=== PATIENT | female | born 1955 | race Caucasian/White ===

== ENCOUNTER 2017-08-06 16:59 | Emergency (ER) | payer MEDICAID ==
[~2017-08-06] VITALS: Ht 177.8 cm; Wt 60.0 kg
[2017-08-06 17:01] VITALS: BP 138/61; PULSE 110; RESP 15; TEMP 98.4; O2SAT 95
--- NOTE | 2017-08-06 17:31 | PD ---
HPI Chief Complaint: Edema Time Seen by Provider: 17:27 Travel History International Travel<30 days: No Contact w/Intl Traveler<30days: No Traveled to known affect area: No History of Present Illness HPI This is a 62-year-old female with history of anal cancer reports that she underwent chemotherapy and radiation in late 2015, moved to [facility] from [place] and December 2016, currently attempting to seek follow-up with a local oncologist. She presents for evaluation of leg swelling. Past when she has had swelling to the lower extremities bilaterally as well as pain. She reports some skin redness to the anterior right lower leg over the past few days. She was sent here by his [facility] for ultrasound to evaluate for DVT. She endorses pain, aching, lower extremities, constant, worse with movement. Denies acute chest pain or shortness of breath, nausea or vomiting, fevers or chills, abdominal pain. No other complaints. PFSH Past Medical History Cancer: Yes (rectal) Chemotherapy: Yes (AUG 2016) COPD: Yes Social History Alcohol Use: Yes (on occasion) Tobacco Use: Yes (0.5 ppd) Substance Use: No Allergies-Medications (Allergen,Severity, Reaction): Coded Allergies: No Known Allergies (Unverified , 08/06/17) Reported Meds & Prescriptions Reported Meds & Active Scripts Active Keflex (Cephalexin) 500 Mg Capsule 500 Mg PO Q6H 10 Days Bactrim DS (Sulfamethoxazole-Trimethoprim) 800-160 Mg Tab 1 Tab PO BID Reported Morphine ER (Morphine Sulfate) 15 Mg Tab 15 Mg PO BID Hydrocodone-Acetaminophen 7.5-325 mg Tab 1 Tab PO Q4H PRN Review of Systems Except as stated in HPI: all other systems reviewed are Neg Physical Exam Narrative GENERAL: Well-developed well-nourished female in no acute distress SKIN: Warm and dry. HEAD: Atraumatic. Normocephalic. EYES: Pupils equal and round. No scleral icterus. No injection or drainage. ENT: No nasal bleeding or discharge. Mucous membranes pink and moist. NECK: Trachea midline. No JVD. CARDIOVASCULAR: Regular rate and rhythm. No murmur appreciated. RESPIRATORY: No accessory muscle use. Clear to auscultation. Breath sounds equal bilaterally. GASTROINTESTINAL: Abdomen soft, non-tender, nondistended. Hepatic and splenic margins not palpable. MUSCULOSKELETAL: 2+ right lower extremity pitting edema. 1+ left lower extremity pitting edema. There is some erythematous changes localized to the right pretibial and ankle region. NEUROLOGICAL: Awake and alert. No obvious cranial nerve deficits. Motor grossly within normal limits. Normal speech. Data Data Last Documented VS Vital Signs Date Time Temp Pulse Resp B/P (MAP) Pulse Ox O2 Delivery O2 Flow Rate FiO2 08/06/17 17:19 103 18 98 Room Air 08/06/17 17:01 98.4 138/61 (86) Orders Orders Us Leg Venous Doppler Bilat (08/06/17 17:25) Complete Blood Count With Diff (08/06/17 17:25) Act Partial Throm Time (Ptt) (08/06/17 17:25) Prothrombin Time / Inr (Pt) (08/06/17 17:25) Iv Access Insert/Monitor (08/06/17 17:25) Comprehensive Metabolic Panel (08/06/17 17:25) Sulfamet-Trimeth Ds 800-160 Mg (Bactrim (08/06/17 18:45) Cephalexin (Keflex) (08/06/17 18:45) Acetamin-Hydrocod 325-5 Mg ([place] 5-325 (08/06/17 18:45) Labs Laboratory Tests Test 08/06/17 17:35 White Blood Count 4.8 TH/MM3 Red Blood Count 3.04 MIL/MM3 Hemoglobin 11.7 GM/DL Hematocrit 34.9 % Mean Corpuscular Volume 115.0 FL Mean Corpuscular Hemoglobin 38.6 PG Mean Corpuscular Hemoglobin Concent 33.6 % Red Cell Distribution Width 17.4 % Platelet Count 323 TH/MM3 Mean Platelet Volume 6.7 FL Neutrophils (%) (Auto) 68.8 % Lymphocytes (%) (Auto) 14.1 % Monocytes (%) (Auto) 10.3 % Eosinophils (%) (Auto) 6.0 % Basophils (%) (Auto) 0.8 % Neutrophils # (Auto) 3.3 TH/MM3 Lymphocytes # (Auto) 0.7 TH/MM3 Monocytes # (Auto) 0.5 TH/MM3 Eosinophils # (Auto) 0.3 TH/MM3 Basophils # (Auto) 0.0 TH/MM3 CBC Comment DIFF FINAL Differential Comment Prothrombin Time 11.2 SEC Prothromb Time International Ratio 1.0 RATIO Activated Partial Thromboplast Time 28.3 SEC Blood Urea Nitrogen 6 MG/DL Creatinine 0.48 MG/DL Random Glucose 103 MG/DL Total Protein 6.3 GM/DL Albumin 2.6 GM/DL Calcium Level 8.4 MG/DL Alkaline Phosphatase 86 U/L Aspartate Amino Transf (AST/SGOT) 17 U/L Alanine Aminotransferase (ALT/SGPT) 17 U/L Total Bilirubin 0.2 MG/DL Sodium Level 137 MEQ/L Potassium Level 4.3 MEQ/L Chloride Level 101 MEQ/L Carbon Dioxide Level 27.1 MEQ/L Anion Gap 9 MEQ/L Estimat Glomerular Filtration Rate 131 ML/MIN [facility] Medical Decision Making Medical Screen Exam Complete: Yes Emergency Medical Condition: Yes Medical Record Reviewed: Yes Interpretation(s) CONCLUSION: 1. Negative for deep venous thrombosis bilateral lower extremities. Left popliteal Ramos's cyst measuring up to 4 x 1.2 x 1.4 cm. Differential Diagnosis Cellulitis, DVT, Erysipelas, dependent edema Narrative Course Plan is for basic lab work, bilateral ultrasound lower extremities. Ultrasound of the lower extremities is negative for DVT but there is a left popliteal Ramos cyst. Lab work has been reviewed. Examination is consistent with cellulitis of the right pretibial region. The patient is afebrile, not toxic in appearance. The patient will be discharged with oral antibiotics and outpatient follow-up with her primary care physician. Diagnosis Primary Impression: Cellulitis of right lower extremity Additional Instructions: Take antibiotics as prescribed. Elevate the legs. Follow-up with primary care physician and return for any acutely new or worsening symptoms. Med/Other Pt SpecificInfo: Prescription(s) given Scripts Cephalexin (Keflex) 500 Mg Capsule 500 MG PO Q6H for Infection for 10 Days, #40 CAP 0 Refills Prov: Ron Burger MD 08/06/17 Sulfamethoxazole-Trimethoprim (Bactrim DS) 800-160 Mg Tab 1 TAB PO BID for Infection, #20 TAB 0 Refills Prov: Ron Burger MD 08/06/17 Disposition: 01 DISCHARGE HOME Condition: Stable Renzo Hawthorne Aug 06, 2017 17:31
[2017-08-06] MEDS ORDERED: HYDR-3580 PO (17:32)
[2017-08-06] MEDS ORDERED: MORP1TAB24 PO (17:32)
[2017-08-06 18:05] LABS: AUTOMATED NEUTROPHIL # 3.3 TH/MM3 (1.8-7.7); BASOPHIL % 0.8 % (0.0-2.0); EOSINOPHIL # 0.3 TH/MM3 (0-0.4); HEMATOCRIT 34.9 % (35.0-46.0); HEMO FLAGS DIFF FINAL; LYMPH % 14.1 % (9.0-44.0); LYMPHOCYTE # 0.7 TH/MM3 (1.0-4.8); MEAN CORPUSCULAR HEMOGLOBIN 38.6 PG (27.0-34.0); MEAN CORPUSCULAR HGB CONC 33.6 % (32.0-36.0); MONO % 10.3 % (0.0-8.0); NEUT % 68.8 % (16.0-70.0); PLATELET COUNT 323 TH/MM3 (150-450); RED BLOOD COUNT 3.04 MIL/MM3 (4.00-5.30); RED CELL DISTRIBUTION WIDTH 17.4 % (11.6-17.2); WHITE BLOOD COUNT 4.8 TH/MM3 (4.0-11.0)
[2017-08-06 18:17] LABS: APTT (PATIENT) 28.3 SEC (24.3-30.1); PROTHROMBIN TIME - PATIENT 11.2 SEC (9.8-11.6)
[2017-08-06 18:22] LABS: ANION GAP 9 MEQ/L (5-15); AST (GOT) 17 U/L (15-37); BICARBONATE 27.1 MEQ/L (21.0-32.0); BLOOD UREA NITROGEN 6 MG/DL (7-18); CHLORIDE 101 MEQ/L (98-107); GLOMERULAR FILTRATION RATE 131 ML/MIN (>89); POTASSIUM 4.3 MEQ/L (3.5-5.1); SODIUM (NA) 137 MEQ/L (136-145)
--- NOTE | 2017-08-06 18:22 | RADRPT ---
EXAM DATE/TIME: 08/06/2017 17:45 [facility] COMPARISON: No previous studies available for comparison. INDICATIONS : Bilateral leg swelling. MEDICAL HISTORY : Chronic obstructive pulmonary disease. Alcohol use. Tobacco use. Rectal cancer. Chemotherapy. SURGICAL HISTORY : None. ENCOUNTER: Initial ACUITY: 4 - 6 days PAIN SCORE: 10/10 LOCATION: Bilateral legs. TECHNIQUE: Venous ultrasound of the left and right leg was performed from the inguinal ligament to the proximal calf. Real-time, color Doppler and spectral tracing, compression and augmentation techniques were us ed. FINDINGS: RIGHT LEG: There is normal compressibility of the deep venous system from the proximal thigh to the proximal gio f. No echogenic clot is seen in the lumen of the common femoral, femoral, popliteal, and posterior t ibial veins. There is a normal response of the venous system to proximal and distal augmentation and respiration. LEFT LEG: There is normal compressibility of the deep venous system from the proximal thigh to the proximal gio f. No echogenic clot is seen in the lumen of the common femoral, femoral, popliteal, and posterior t ibial veins. There is a normal response of the venous system to proximal and distal augmentation and respiration. CONCLUSION: 1. Negative for deep venous thrombosis bilateral lower extremities. Left popliteal Ramos's cyst measu ring up to 4 x 1.2 x 1.4 cm. Theodore Durán MD on August 06, 2017 at 18:19 Board Certified Radiologist. This report was verified electronically.
[2017-08-06 18:24] LABS: ALT (GPT) 17 U/L (10-53)
[2017-08-06 18:25] LABS: ALKALINE PHOSPHATASE 86 U/L (45-117); TOTAL BILIRUBIN ADULT 0.2 MG/DL (0.2-1.0)
[2017-08-06] MEDS ORDERED: CEPH-460 PO (18:42)
[2017-08-06] MEDS ORDERED: BACT800T5 PO (18:42)
[2017-08-06] MEDS ORDERED: SULFAMETHOXAZOLE-TRIMETHOPRIM DS 800-160 MG TAB PO ONE (18:45)
[2017-08-06] MEDS ORDERED: CEPHALEXIN MONOHYDRATE 500 MG CAP PO ONE (18:45)
[2017-08-06] MEDS ORDERED: ACETAMINOPHEN/HYDROcodone 325 MG/5 MG TAB PO ONE (18:45)
== END 2017-08-06 19:00 | disposition home or self-care (01) ==
LOC: NEPC 16:59
DX: L03.115 Cellulitis of right lower limb (principal); M71.22 Synovial cyst of popliteal space [Baker], left knee; M79.89 Other specified soft tissue disorders; J44.9 Chronic obstructive pulmonary disease, unspecified; F17.200 Nicotine dependence, unspecified, uncomplicated; Z85.048 Personal history of other malignant neoplasm of rectum, rectosigmoid junction, and anus; Z79.899 Other long term (current) drug therapy
CPT/HCPCS: 80053; 85025; 85610; 85730; 93970; 99284

== ENCOUNTER 2017-10-05 02:27 | Emergency (ER) | payer MEDICAID ==
[~2017-10-05] VITALS: Ht 175.3 cm; Wt 55.0 kg
[~2017-10-05 02:27] MED LIST: BACT800T5 PO; CEPH-460 PO; HYDR-3580 PO; MORP1TAB24 PO
[2017-10-05 02:31] VITALS: BP 123/99; PULSE 90; RESP 18; TEMP 97.7; O2SAT 98
[2017-10-05] MEDS ORDERED: IPRAAER INH (02:40)
[2017-10-05] MEDS ORDERED: CETI10CA3 PO (02:40)
[2017-10-05] MEDS ORDERED: BUSP1TAB PO (02:40)
[2017-10-05] MEDS ORDERED: OMEP10CA PO (02:40)
[2017-10-05] MEDS ORDERED: MONT4CHW2 CHEW (02:40)
[2017-10-05] MEDS ORDERED: METH500T3 PO (02:40)
[2017-10-05 03:39] VITALS: O2SAT 99
[2017-10-05 03:45] LABS: AUTOMATED NEUTROPHIL # 3.3 TH/MM3 (1.8-7.7); BASOPHIL % 0.6 % (0.0-2.0); EOSINOPHIL # 0.1 TH/MM3 (0-0.4); EOSINOPHIL % 2.4 % (0.0-4.0); HEMATOCRIT 36.6 % (35.0-46.0); HEMO FLAGS DIFF FINAL; LYMPH % 21.3 % (9.0-44.0); LYMPHOCYTE # 1.1 TH/MM3 (1.0-4.8); MEAN CORPUSCULAR HEMOGLOBIN 38.5 PG (27.0-34.0); MEAN CORPUSCULAR HGB CONC 34.1 % (32.0-36.0); MONO % 12.3 % (0.0-8.0); NEUT % 63.4 % (16.0-70.0); PLATELET COUNT 306 TH/MM3 (150-450); RED BLOOD COUNT 3.23 MIL/MM3 (4.00-5.30); RED CELL DISTRIBUTION WIDTH 17.4 % (11.6-17.2); WHITE BLOOD COUNT 5.2 TH/MM3 (4.0-11.0)
--- NOTE | 2017-10-05 03:48 | PD ---
HPI Chief Complaint: Pain: Acute or Chronic Time Seen by Provider: 02:55 Travel History International Travel<30 days: No Contact w/Intl Traveler<30days: No Traveled to known affect area: No History of Present Illness HPI The patient is a 62 year old female who presents to the [facility] emergency department with a history of anal cancer, first diagnosed in August 2016 status post chemotherapy and radiation therapy. She reports that she has a history of anal pain and anal fissures with intermittent bleeding. She reports that she moved to the area in December 2016 and has been having difficulty following up with a new colorectal surgeon. She is followed by for oncology care. She reports that she recently had a PET scan done that was suspicious for a new rectal mass. She was referred to and had an appointment yesterday, however she was unable to find the office, that she missed the appointment. She is in pain management related to her rectal pain. The patient reports that she's been out of her morphine for the last 2 weeks as the pain management office was closed for . The patient reports that she has an appointment with a pain management doctor scheduled for today. She is followed by the [facility] for her primary care. She denies having any new abdominal pain. She reports that she has stool incontinence, however she has a history of this since having radiation therapy. She denies having any lightheaded sensation, dizziness, chest pain, chest pressure, or shortness of breath. On review of systems otherwise, she denies having any recent fevers , cough, congestion, neck pain, urinary symptoms, or neurologic symptoms. [facility] Past Medical History Narrative Medical The patient's past medical history is significant for anxiety disorder, anal cancer, irritable bowel syndrome, spinal stenosis with chronic back pain, COPD. Anxiety: Yes Cancer: Yes (rectal) Chemotherapy: Yes (received chemo and radiation last year ) COPD: Yes Gastrointestinal Disorders: Yes (IBS) Medical other: Yes (spinal stenosis , BREAST IMPLANTS 1985) Tetanus Vaccination: Unknown Influenza Vaccination: No ?: Not Past Surgical History Narrative Surgical The patient's past surgical history is significant for a tonsillectomy, hysterectomy. Hysterectomy: Yes Tonsillectomy: Yes Other Surgery: Yes (LAST COLONOSCOPY 2015) Social History Alcohol Use: Yes (on occasion) Tobacco Use: Yes (1-2 ppd) Substance Use: No Allergies-Medications (Allergen,Severity, Reaction): Coded Allergies: No Known Allergies (Unverified Adverse Reaction, Unknown, 10/05/17) Reported Meds & Prescriptions Reported Meds & Active Scripts Active Keflex (Cephalexin) 500 Mg Capsule 500 Mg PO Q6H 10 Days Bactrim DS (Sulfamethoxazole-Trimethoprim) 800-160 Mg Tab 1 Tab PO BID Reported Zyrtec (Cetirizine HCl) 10 Mg Capsule 10 Mg PO DAILY Methocarbamol 500 Mg Tab 500 Mg PO BID Combivent Respimat Inh (Ipratropium-Albuterol Inh) 20-100 Usp/Act Aero 1 Puff INH QID Singulair (Montelukast Sodium) 4 Mg Chew 4 Mg CHEW HS Omeprazole 10 Mg Cap 10 Mg PO DAILY Buspirone (Buspirone HCl) 7.5 Mg Tab 7.5 Mg PO BID Morphine ER (Morphine Sulfate) 15 Mg Tab 15 Mg PO BID Hydrocodone-Acetaminophen 7.5-325 mg Tab 1 Tab PO Q4H PRN Review of Systems Except as stated in HPI: all other systems reviewed are Neg General / Constitutional: No: Fever Eyes: No: Visual changes HENT: No: Headaches Cardiovascular: No: Chest Pain or Discomfort Respiratory: No: Shortness of Breath Gastrointestinal: Positive: Other (intermittent rectal bleeding from fissures associated with anal pain), No: Nausea, Vomiting, Diarrhea, Abdominal Pain Genitourinary: No: Dysuria Musculoskeletal: No: Pain Skin: No Rash Neurologic: No: Weakness, Focal Abnormalities, Change in Mentation, Slurred Speech, Sensory Disturbance Psychiatric: No: Depression Endocrine: No: Polydipsia Hematologic/Lymphatic: No: Easy Bruising Physical Exam Narrative General: The patient is a well-developed well-nourished female in no acute distress. Head and Neck exam: Head is normocephalic atraumatic. Eyes: Pupils are equal round and reactive to light. Nose: Midline septum with pink mucous membranes Mouth: Dentition unremarkable. Moist mucus membranes. Posterior oropharynx is not erythematous. No tonsillar hypertrophy. Uvula midline. Airway patent. Neck: No palpable lymphadenopathy. No nuchal rigidity. No thyromegaly. Cardiovascular: Regular rate and rhythm without murmurs, gallops, or rubs. Lungs: Clear to auscultation bilaterally. No wheezes, rhonchi, or rales. Abdomen: Soft, without tenderness to palpation in all 4 quadrants of the abdomen. No guarding, rebound, or rigidity. Normal bowel sounds are audible. No tenderness on palpation of McBurney's point. Extremities: No clubbing, cyanosis, or edema. 2+ pulses in all 4 extremities. No calf tenderness on palpation. Back: No costovertebral angle tenderness to palpation. Neurologic Exam: Grossly nonfocal. The patient has slightly slurred speech with an odor of alcohol about her. Skin Exam: No rash noted. Intact skin that is warm and dry. RECTAL EXAM: The patient has multiple anal skin tags, masses noted on examination of the anal area. The patient has an anal fissure noted without any active bleeding. On rectal examination, the patient has Hemoccult negative stool. Data Data Last Documented VS Vital Signs Date Time Temp Pulse Resp B/P (MAP) Pulse Ox O2 Delivery O2 Flow Rate FiO2 10/05/17 03:39 99 Room Air 10/05/17 02:31 97.7 90 18 123/99 (107) Orders Orders Electrocardiogram (10/05/17 03:02) Complete Blood Count With Diff (10/05/17 03:02) Comprehensive Metabolic Panel (10/05/17 03:02) Troponin I (10/05/17 03:02) Prothrombin Time / Inr (Pt) (10/05/17 03:02) Act Partial Throm Time (Ptt) (10/05/17 03:02) Lipase (10/05/17 03:02) Magnesium (Mg) (10/05/17 03:02) Chest, Single Ap (10/05/17 03:02) Iv Access Insert/Monitor (10/05/17 03:02) Ecg Monitoring (10/05/17 03:02) Oximetry (10/05/17 03:02) Drug Screen, Random Urine (10/05/17 03:02) Alcohol (Ethanol) (10/05/17 03:02) Sodium Chlor 0.9% 1000 Ml Inj (Ns 1000 M (10/05/17 04:00) Thiamine Inj (Thiamine Inj) (10/05/17 04:00) Acetamin-Hydrocod 325-5 Mg ([place] 5-325 (10/05/17 05:00) Labs Laboratory Tests Test 10/05/17 03:15 White Blood Count 5.2 TH/MM3 Red Blood Count 3.23 MIL/MM3 Hemoglobin 12.5 GM/DL Hematocrit 36.6 % Mean Corpuscular Volume 113.0 FL Mean Corpuscular Hemoglobin 38.5 PG Mean Corpuscular Hemoglobin Concent 34.1 % Red Cell Distribution Width 17.4 % Platelet Count 306 TH/MM3 Mean Platelet Volume 6.3 FL Neutrophils (%) (Auto) 63.4 % Lymphocytes (%) (Auto) 21.3 % Monocytes (%) (Auto) 12.3 % Eosinophils (%) (Auto) 2.4 % Basophils (%) (Auto) 0.6 % Neutrophils # (Auto) 3.3 TH/MM3 Lymphocytes # (Auto) 1.1 TH/MM3 Monocytes # (Auto) 0.6 TH/MM3 Eosinophils # (Auto) 0.1 TH/MM3 Basophils # (Auto) 0.0 TH/MM3 CBC Comment DIFF FINAL Differential Comment Prothrombin Time 9.8 SEC Prothromb Time International Ratio 1.0 RATIO Activated Partial Thromboplast Time 23.0 SEC Blood Urea Nitrogen 4 MG/DL Creatinine 0.46 MG/DL Random Glucose 67 MG/DL Total Protein 6.4 GM/DL Albumin 2.5 GM/DL Calcium Level 7.8 MG/DL Magnesium Level 1.6 MG/DL Alkaline Phosphatase 85 U/L Aspartate Amino Transf (AST/SGOT) 127 U/L Alanine Aminotransferase (ALT/SGPT) 61 U/L Total Bilirubin 0.1 MG/DL Sodium Level 142 MEQ/L Potassium Level 3.8 MEQ/L Chloride Level 108 MEQ/L Carbon Dioxide Level 26.7 MEQ/L Anion Gap 7 MEQ/L Estimat Glomerular Filtration Rate 138 ML/MIN Troponin I LESS THAN 0.02 NG/ML Lipase 60 U/L Ethyl Alcohol Level 280 MG/DL [facility] Medical Decision Making Medical Screen Exam Complete: Yes Emergency Medical Condition: Yes Medical Record Reviewed: Yes Differential Diagnosis Symptomatic anemia, versus exacerbation of chronic pain as she is out of her pain medication, versus progression of anal cancer Narrative Course During the course of the patients emergency department visit, the patients history, examination, and differential diagnosis were reviewed with the patient. The patient was placed on a front desk monitor with oximetry and frequent blood pressure monitoring. The patient had IV access obtained and blood work sent for analysis. The patient had an ECG done on arrival. The patient's ECG reveals a sinus rhythm heart rate of 84, nonspecific T-wave and ST abnormalities. No acute ST segment elevation. QRS duration is 90 ms, QTC 421 ms. The patient was initially provided Lortab 5 mg by mouth 1 for pain. The patients laboratory studies were reviewed and remarkable for a white count of 5.2, hemoglobin 12.5, platelets 306 with 12.3 monocytes, CMP is remarkable for chloride of 108, BUN 4, creatinine 0.46, glucose is 67, however on evaluation at the bedside it was noted to be 80. Total bilirubin is 0.1, AST 127, ALT 61, alkaline phosphatase 85, troponin I less than 0.02, lipase 60, alcohol level CCLXXX, PT 9.8, PTT 23 Radiology studies were reviewed and remarkable for a chest x-ray that shows no acute cardiopulmonary disease. The patient will be discharged home to follow-up with her pain management doctor for a refill of her panic pain medication later today. The patient additionally was instructed regarding the importance of following up with a colorectal surgeon as previously scheduled. The patient is resting comfortably and feels better, is alert and in no distress. The patients results and examination findings were discussed with the patient. The repeat examination is unremarkable and benign. The history, exam, diagnostic testing, and current condition do not suggest any significant pathology to warrant further testing, continued ED treatment, admission, or surgical evaluation at this point. The vital signs have been stable. The patient does not have uncontrollable pain, intractable vomiting, or other significant symptoms. The patient's condition is stable and appropriate for discharge. The patient will pursue further outpatient evaluation with a primary care physician or other designated or consulting physician as indicated in the discharge instructions. The patient expressed understanding and was agreeable with this plan. Diagnosis Primary Impression: Anal pain Referrals: Jamila Vasquez MD 1 week Julio Cesar Ibrahim MD 3 days [employer] [employer] 2 days Pain Management Patient Instructions: General Instructions, Rectal Pain (ED) Med/Other Pt SpecificInfo: No Change to Meds Disposition: 01 DISCHARGE HOME Condition: Stable Opal Marquez MD Oct 05, 2017 03:48
[2017-10-05 03:56] LABS: PROTHROMBIN TIME - PATIENT 9.8 SEC (9.8-11.6)
[2017-10-05] MEDS ORDERED: SODIUM CHLOR 0.9% 1000 ML INJ 1,000 ML IV SCH (04:00)
[2017-10-05] MEDS ORDERED: THIAMINE INJ 100 MG in SODIUM CHLORIDE 0.9% INJ 100 ML IV ONE (04:00)
[2017-10-05 04:03] LABS: ALT (GPT) 61 U/L (10-53); ANION GAP 7 MEQ/L (5-15); AST (GOT) 127 U/L (15-37); BICARBONATE 26.7 MEQ/L (21.0-32.0); BLOOD UREA NITROGEN 4 MG/DL (7-18); CHLORIDE 108 MEQ/L (98-107); GLOMERULAR FILTRATION RATE 138 ML/MIN (>89); MAGNESIUM 1.6 MG/DL (1.5-2.5); POTASSIUM 3.8 MEQ/L (3.5-5.1); SODIUM (NA) 142 MEQ/L (136-145)
[2017-10-05 04:07] LABS: ALKALINE PHOSPHATASE 85 U/L (45-117); TOTAL BILIRUBIN ADULT 0.1 MG/DL (0.2-1.0)
[2017-10-05 04:08] LABS: ALCOHOL 280 MG/DL (0-5)
--- NOTE | 2017-10-05 04:12 | RADRPT ---
EXAM DATE/TIME: 10/05/2017 03:38 [facility] COMPARISON: No previous studies available for comparison. INDICATIONS : Short of breath. MEDICAL HISTORY : None. SURGICAL HISTORY : None. ENCOUNTER: Initial ACUITY: 1 day PAIN SCORE: 0/10 LOCATION: Bilateral chest FINDINGS: A single view of the chest demonstrates the lungs to be symmetrically aerated without evidence of mas s, infiltrate or effusion. The cardiomediastinal contours are unremarkable. Osseous structures are intact. Partially calcified bilateral breast implants are present. There are overlying cardiac leads. CONCLUSION: No acute disease. Won Dewitt MD on October 05, 2017 at 4:09 Board Certified Radiologist. This report was verified electronically.
[2017-10-05] MEDS ORDERED: ACETAMINOPHEN/HYDROcodone 325 MG/5 MG TAB PO ONE (05:00)
--- NOTE | 2017-10-05 14:30 | EKG ---
Date Performed: 10/05/2017 Time Performed: 03:38:00 PTAGE: 62 years EKG: Sinus rhythm NONSPECIFIC ST & T-WAVE ABNORMALITY BORDERLINE ECG NO PREVIOUS TRACING DOCTOR: Kim Morton Interpretating Date/Time 10/05/2017 14:25:56
== END 2017-10-05 08:00 | disposition home or self-care (01) ==
LOC: NEPC 02:27
DX: K62.89 Other specified diseases of anus and rectum (principal); R94.31 Abnormal electrocardiogram [ECG] [EKG]; J44.9 Chronic obstructive pulmonary disease, unspecified; F41.9 Anxiety disorder, unspecified; F17.200 Nicotine dependence, unspecified, uncomplicated; Z85.048 Personal history of other malignant neoplasm of rectum, rectosigmoid junction, and anus; Z87.19 Personal history of other diseases of the digestive system; Z79.899 Other long term (current) drug therapy
CPT/HCPCS: 71010; 80053; 80307; 83690; 83735; 84484; 85025; 85610; 85730; 93005; 96365; 99285; J3411; J7030

== ENCOUNTER 2017-12-01 16:56 | Inpatient (IN) | payer MEDICAID ==
[~2017-12-01] VITALS: Ht 175.3 cm; Wt 59.6 kg
[~2017-12-01 16:56] MED LIST changes: +BUSP1TAB PO; +CETI10CA3 PO; +IPRAAER INH; +METH500T3 PO; +MONT4CHW2 CHEW; +OMEP10CA PO
[2017-12-01 16:58] VITALS: BP 108/58; PULSE 77; RESP 16; TEMP 98.3; O2SAT 96
[2017-12-01 17:41] LABS: AUTOMATED NEUTROPHIL # 4.5 TH/MM3 (1.8-7.7); BASOPHIL % 0.5 % (0.0-2.0); EOSINOPHIL # 0.1 TH/MM3 (0-0.4); EOSINOPHIL % 1.4 % (0.0-4.0); HEMOGLOBIN 11.9 GM/DL (11.6-15.3); LYMPH % 9.9 % (9.0-44.0); LYMPHOCYTE # 0.6 TH/MM3 (1.0-4.8); MEAN CORPUSCULAR HEMOGLOBIN 40.1 PG (27.0-34.0); MEAN PLATELET VOLUME 6.3 FL (7.0-11.0); MONO % 8.1 % (0.0-8.0); MONOCYTE # 0.5 TH/MM3 (0-0.9); NEUT % 80.1 % (16.0-70.0); PLATELET COUNT 421 TH/MM3 (150-450); RED BLOOD COUNT 2.97 MIL/MM3 (4.00-5.30); RED CELL DISTRIBUTION WIDTH 15.9 % (11.6-17.2); WHITE BLOOD COUNT 5.6 TH/MM3 (4.0-11.0)
[2017-12-01 17:51] LABS: INTERNATIONAL NORMALIZED RATIO 1.1 RATIO; PROTHROMBIN TIME - PATIENT 11.6 SEC (9.8-11.6)
[2017-12-01 18:11] LABS: ALBUMIN 2.2 GM/DL (3.4-5.0); AST (GOT) 21 U/L (15-37); BICARBONATE 28.6 MEQ/L (21.0-32.0); BLOOD UREA NITROGEN 3 MG/DL (7-18); CALCIUM 7.9 MG/DL (8.5-10.1); CHLORIDE 103 MEQ/L (98-107); CREATININE 0.46 MG/DL (0.50-1.00); GLOMERULAR FILTRATION RATE 138 ML/MIN (>89); GLUCOSE,RANDOM 79 MG/DL (74-106); SODIUM (NA) 137 MEQ/L (136-145)
[2017-12-01 18:12] LABS: ALT (GPT) 22 U/L (10-53)
[2017-12-01 18:14] LABS: ALKALINE PHOSPHATASE 76 U/L (45-117); TOTAL BILIRUBIN ADULT 0.3 MG/DL (0.2-1.0); TOTAL PROTEIN 5.9 GM/DL (6.4-8.2)
[2017-12-01] MEDS ORDERED: HYDR-3583 PO (18:48)
[2017-12-01] MEDS ORDERED: IPRA17I INH (18:48)
[2017-12-01] MEDS ORDERED: ALBUAER3 INH (18:48)
[2017-12-01 18:50] VITALS: BP 112/48; PULSE 84; RESP 18; TEMP 97.9; O2SAT 100
--- NOTE | 2017-12-01 19:07 | PD ---
HPI Chief Complaint: Medical Clearance Time Seen by Provider: 18:54 Travel History International Travel<30 days: No Contact w/Intl Traveler<30days: No Traveled to known affect area: No History of Present Illness HPI The patient is a 62-year-old female who presents to the emergency department for cellulitis of the left lower extremity. The patient states she has had cellulitis for the last week left lower extremity and has been treated on an outpatient basis by her colorectal surgeon, Dr. Gore. The patient is currently on Keflex 250 mg 4 times a day, however, the erythema has not improved. The patient was sent to the emergency department by her colorectal surgeon, Dr. Gore, for IV antibiotics. The patient does note a history of anal cancer, underwent radiation and chemotherapy, and is scheduled to undergo surgery in the near future by Dr. Gore with possible colostomy placement per the patient for continuing symptoms and fecal incontinence. She does note the left lower extremity is more swollen than the right lower extremity, denies any history DVT. She does note edema to the affected area with erythema and warmth. She denies current fever. Symptoms are moderate without any alleviating or exacerbating factors. The patient's primary physician is at the [facility]. PFSH Past Medical History Anxiety: Yes Cancer: Yes (rectal) Chemotherapy: Yes (received chemo and radiation last year ) COPD: Yes Gastrointestinal Disorders: Yes (IBS) Tetanus Vaccination: < 5 Years Influenza Vaccination: Yes Past Surgical History Hysterectomy: Yes Tonsillectomy: Yes Other Surgery: Yes (LAST COLONOSCOPY 2015) Social History Alcohol Use: Yes (on occasion) Tobacco Use: Yes (1-2 ppd) Substance Use: No Allergies-Medications (Allergen,Severity, Reaction): Coded Allergies: No Known Allergies (Unverified Adverse Reaction, Unknown, 12/01/17) Reported Meds & Prescriptions Reported Meds & Active Scripts Active Keflex (Cephalexin) 500 Mg Capsule 500 Mg PO Q6H 10 Days Bactrim DS (Sulfamethoxazole-Trimethoprim) 800-160 Mg Tab 1 Tab PO BID Reported Atrovent HFA 12.9 GM Inh (Ipratropium [place]) 17 Mcg/Actuation Aer 2 Puff INH Q6HR PRN Proair Hfa 8.5 GM Inh (Albuterol Sulfate) 90 Mcg/Act Aer 2 Puff INH Q4-6H PRN 108 mcg/actuation Hydrocodone-Acetaminophen 10-325 mg Tab 1 Tab PO Q4H PRN Zyrtec (Cetirizine HCl) 10 Mg Capsule 10 Mg PO DAILY Methocarbamol 500 Mg Tab 500 Mg PO BID Combivent Respimat Inh (Ipratropium-Albuterol Inh) 20-100 Snf/Act Aero 1 Puff INH QID Singulair (Montelukast Sodium) 4 Mg Chew 4 Mg CHEW HS Omeprazole 10 Mg Cap 10 Mg PO DAILY Buspirone (Buspirone HCl) 7.5 Mg Tab 7.5 Mg PO BID Morphine ER (Morphine Sulfate) 15 Mg Tab 15 Mg PO BID Hydrocodone-Acetaminophen 7.5-325 mg Tab 1 Tab PO Q4H PRN Review of Systems Except as stated in HPI: all other systems reviewed are Neg General / Constitutional: No: Fever Cardiovascular: No: Chest Pain or Discomfort Respiratory: No: Shortness of Breath Gastrointestinal: Positive: Other (history of anal cancer with fistulas, scheduled undergo surgery in the near future), No: Nausea, Vomiting Musculoskeletal: Positive: Edema, Pain Physical Exam Narrative GENERAL: Awake, alert, pleasant 52-year-old female who appears her stated age and is in no acute respiratory distress. SKIN: Focused skin assessment warm/dry. HEAD: Atraumatic. Normocephalic. EYES: Pupils equal and round. No scleral icterus. No injection or drainage. ENT: No nasal bleeding or discharge. Mucous membranes pink and moist. NECK: Trachea midline. No JVD. CARDIOVASCULAR: Regular rate and rhythm. No murmur appreciated. RESPIRATORY: No accessory muscle use. Clear to auscultation. Breath sounds equal bilaterally. GASTROINTESTINAL: Abdomen soft, non-tender, nondistended. Rectal: Exam was performed in the presence of female nurse. The patient does have some erythema in the perianal area with a few open areas that could possibly be fistulas. No drainage noted. MUSCULOSKELETAL: The left lower extremity is more swollen than the right lower extremity. There is erythema and warmth from the left foot up to the left knee with pitting edema and mild weeping. Positive calor. NEUROLOGICAL: Awake and alert. No obvious cranial nerve deficits. Motor grossly within normal limits. Normal speech. PSYCHIATRIC: Appropriate mood and affect; insight and judgment normal. Data Data Last Documented VS Vital Signs Date Time Temp Pulse Resp B/P (MAP) Pulse Ox O2 Delivery O2 Flow Rate FiO2 1/31/18 18:50 97.9 84 18 112/48 (69) 100 Room Air Orders Orders Complete Blood Count With Diff (12/01/17 17:09) Comprehensive Metabolic Panel (12/01/17 17:09) Prothrombin Time / Inr (Pt) (12/01/17 17:09) Act Partial Throm Time (Ptt) (12/01/17 17:09) Lactic Acid (12/01/17 19:01) Blood Culture (12/01/17 19:01) Clindamycin 600 Mg/Ns Premix (Cleocin 60 (12/01/17 19:15) Aquaphor Oint (Aquaphor Oint) (12/01/17 19:15) Morphine Inj (Morphine Inj) (12/01/17 19:15) Ondansetron Inj (Zofran Inj) (12/01/17 19:15) Sodium Chlor 0.9% 1000 Ml Inj (Ns 1000 M (12/01/17 19:15) Us Leg Venous Doppler (12/01/17 ) Potassium Chloride (Kcl) (12/01/17 21:15) Admit Order (Ed Use Only) (12/01/17 21:18) Labs Laboratory Tests Test 12/01/17 17:15 12/01/17 19:05 White Blood Count 5.6 TH/MM3 Red Blood Count 2.97 MIL/MM3 Hemoglobin 11.9 GM/DL Hematocrit 35.0 % Mean Corpuscular Volume 118.0 FL Mean Corpuscular Hemoglobin 40.1 PG Mean Corpuscular Hemoglobin Concent 34.0 % Red Cell Distribution Width 15.9 % Platelet Count 421 TH/MM3 Mean Platelet Volume 6.3 FL Neutrophils (%) (Auto) 80.1 % Lymphocytes (%) (Auto) 9.9 % Monocytes (%) (Auto) 8.1 % Eosinophils (%) (Auto) 1.4 % Basophils (%) (Auto) 0.5 % Neutrophils # (Auto) 4.5 TH/MM3 Lymphocytes # (Auto) 0.6 TH/MM3 Monocytes # (Auto) 0.5 TH/MM3 Eosinophils # (Auto) 0.1 TH/MM3 Basophils # (Auto) 0.0 TH/MM3 CBC Comment DIFF FINAL Differential Comment Prothrombin Time 11.6 SEC Prothromb Time International Ratio 1.1 RATIO Activated Partial Thromboplast Time 27.1 SEC Blood Urea Nitrogen 3 MG/DL Creatinine 0.46 MG/DL Random Glucose 79 MG/DL Total Protein 5.9 GM/DL Albumin 2.2 GM/DL Calcium Level 7.9 MG/DL Alkaline Phosphatase 76 U/L Aspartate Amino Transf (AST/SGOT) 21 U/L Alanine Aminotransferase (ALT/SGPT) 22 U/L Total Bilirubin 0.3 MG/DL Sodium Level 137 MEQ/L Potassium Level 3.2 MEQ/L Chloride Level 103 MEQ/L Carbon Dioxide Level 28.6 MEQ/L Anion Gap 5 MEQ/L Estimat Glomerular Filtration Rate 138 ML/MIN Lactic Acid Level 2.4 mmol/L [facility] Medical Decision Making Medical Screen Exam Complete: Yes Emergency Medical Condition: Yes Medical Record Reviewed: Yes Interpretation(s) Last Impressions Lower Extremity Ultrasound 12/01/17 0000 Signed Impressions: Service Date/Time: Friday, December 01, 2017 20:33 - CONCLUSION: 1. No evidence of deep venous thrombosis. 2. Left popliteal cyst measuring 4.7 x 2.4 x 1.2 cm. Reyes Hein MD Laboratory Tests Test 12/01/17 17:15 12/01/17 19:05 White Blood Count 5.6 TH/MM3 Red Blood Count 2.97 MIL/MM3 Hemoglobin 11.9 GM/DL Hematocrit 35.0 % Mean Corpuscular Volume 118.0 FL Mean Corpuscular Hemoglobin 40.1 PG Mean Corpuscular Hemoglobin Concent 34.0 % Red Cell Distribution Width 15.9 % Platelet Count 421 TH/MM3 Mean Platelet Volume 6.3 FL Neutrophils (%) (Auto) 80.1 % Lymphocytes (%) (Auto) 9.9 % Monocytes (%) (Auto) 8.1 % Eosinophils (%) (Auto) 1.4 % Basophils (%) (Auto) 0.5 % Neutrophils # (Auto) 4.5 TH/MM3 Lymphocytes # (Auto) 0.6 TH/MM3 Monocytes # (Auto) 0.5 TH/MM3 Eosinophils # (Auto) 0.1 TH/MM3 Basophils # (Auto) 0.0 TH/MM3 CBC Comment DIFF FINAL Differential Comment Prothrombin Time 11.6 SEC Prothromb Time International Ratio 1.1 RATIO Activated Partial Thromboplast Time 27.1 SEC Blood Urea Nitrogen 3 MG/DL Creatinine 0.46 MG/DL Random Glucose 79 MG/DL Total Protein 5.9 GM/DL Albumin 2.2 GM/DL Calcium Level 7.9 MG/DL Alkaline Phosphatase 76 U/L Aspartate Amino Transf (AST/SGOT) 21 U/L Alanine Aminotransferase (ALT/SGPT) 22 U/L Total Bilirubin 0.3 MG/DL Sodium Level 137 MEQ/L Potassium Level 3.2 MEQ/L Chloride Level 103 MEQ/L Carbon Dioxide Level 28.6 MEQ/L Anion Gap 5 MEQ/L Estimat Glomerular Filtration Rate 138 ML/MIN Lactic Acid Level 2.4 mmol/L Differential Diagnosis Differential diagnosis includes dependent edema, cellulitis on outpatient therapy, DVT, immunocompromise, hypoalbuminemia, hyponatremia, anal cancer. Narrative Course Labs were initially ordered in triage. Upon evaluation the patient does have a left lower extremity more swollen than the right lower extremity. Therefore, ultrasound left lower extremity was ordered to rule out DVT. The patient has been taking Keflex, possibly could have MRSA infection in the left lower extremity. The patient was administered clindamycin, morphine, Zofran, and IV fluids. Blood culture and lactic acid were sent to lab. I discussed the patient with Dr. Gore at 7:10 PM who states the patient has undergone radiation therapy and chemotherapy, is currently cancer free. She is scheduled undergo surgery with diverticula colostomy for continuing fecal incontinence and perineal swelling. He believes the patient may have decreased lymph drainage from the left lower extremity secondary to previous radiation therapy and chemotherapy. Lactic acid is not elevated at 2.4. White count is normal. Ultrasound reveals a popliteal cyst but no DVT. The patient be 23 hour observation for IV antibiotics until blood cultures have resulted. The on-call medical service was paged for observation. Physician Communication Physician Communication The on-call medical service was paged for admission. I discussed the patient with Dr. Whitehead who agrees with 23 hour observation. Diagnosis Primary Impression: Cellulitis of left lower extremity Additional Impressions: Lactic acidosis Hypokalemia Admitting Information Admitting Physician Requests: Observation Condition: Stable Bossman Stubbs MD Dec 01, 2017 19:07
[2017-12-01] MEDS ORDERED: ONDANSETRON HCL 4 MG/2 ML VIAL IV PUSH ONE (19:15)
[2017-12-01] MEDS ORDERED: MORPHINE SULFATE 4 MG/ML INJ IV PUSH ONE (19:15)
[2017-12-01] MEDS ORDERED: SODIUM CHLOR 0.9% 1000 ML INJ 1,000 ML IV ONE (19:15)
[2017-12-01] MEDS ORDERED: AQUAPHOR OINT 50 GM TUBE TOPICAL ONE (19:15)
[2017-12-01] MEDS ORDERED: CLINDAMYCIN 600 MG/NS PREMIX 50 ML IV ONE (19:15)
--- NOTE | 2017-12-01 20:59 | RADRPT ---
EXAM DATE/TIME: 12/01/2017 20:33 [facility] COMPARISON: No previous studies available for comparison. INDICATIONS : Left leg swelling. MEDICAL HISTORY : Chronic obstructive pulmonary disease. Carcinoma, rectal. IBS. Anxiety. Chemotherapy. Radiation t herapy. SURGICAL HISTORY : Hysterectomy. Tonsillectomy. Colonoscopy. ENCOUNTER: Initial ACUITY: 1 week PAIN SCORE: 3/10 LOCATION: Left leg. TECHNIQUE: Venous ultrasound of the leg was performed from the inguinal ligament to the proximal calf. Real-yariel e, color Doppler and spectral tracing, compression and augmentation techniques were used. FINDINGS: There is normal compressibility of the deep venous system from the inguinal region to the proximal ca lf. No echogenic clot is seen in the lumen of the common femoral, femoral, popliteal, and posterior tibial veins. There is a normal response of the venous system to proximal and distal augmentation an d respiration. Left popliteal cyst is noted and measures 4.7 x 2.4 x 1.2 cm. CONCLUSION: 1. No evidence of deep venous thrombosis. 2. Left popliteal cyst measuring 4.7 x 2.4 x 1.2 cm. Reyes Hein MD on December 01, 2017 at 20:55 Board Certified Radiologist. This report was verified electronically.
[2017-12-01] MEDS ORDERED: POTASSIUM CHLORIDE 20 MEQ CONTROLLED RELEASE TAB PO ONE ×2 (21:15→22:15)
[2017-12-01] MEDS ORDERED: BISACODYL 10 MG SUPP RECTAL PRN (22:00)
[2017-12-01] MEDS ORDERED: ONDANSETRON HCL 4 MG/2 ML VIAL IVP PRN (22:00)
[2017-12-01] MEDS ORDERED: LACTULOSE SYRUP 20 GM/30 ML CUP PO PRN (22:00)
[2017-12-01] MEDS ORDERED: MAGNESIUM HYDROXIDE SUSP 30 ML CUP PO PRN (22:00)
[2017-12-01] MEDS ORDERED: RESP: ALBUTEROL 2.5 MG/IPRATROPIUM 0.5 MG NEB (PRN) NEB ×2 (22:00→22:15)
[2017-12-01] MEDS ORDERED: ACETAMINOPHEN 325 MG TAB PO PRN (22:00)
--- NOTE | 2017-12-01 22:16 | HHI.HP ---
HPI Service [facility] Primary Care Physician Non-Staff Admission Diagnosis cellulitis left lower extremity, hypokalemia, lactic acidosis Diagnoses: Travel History International Travel<30 Days: No Contact w/Intl Traveler <30 Da: No Traveled to Known Affected Are: No History of Present Illness 62-year-old female with a past medical history significant for anal cancer, status post chemotherapy/radiation, COPD and IBS presents to the emergency department at the recommendation of Dr. Gore for a left lower extremity cellulitis that has failed outpatient treatment. The patient is status post treatment with Bactrim followed by Keflex. Despite this her left lower extremity remains swollen, erythematous and edematous. It is warm to the touch and painful. Patient denies any fever/chills. Denies any chest pain, shortness of breath, nausea/vomiting. Vital signs: Temperature 98.3, pulse 77, respirations 16, BP 108/58, pulse ox 96% on room air. Review of Systems Except as stated in HPI: all other systems reviewed are Neg Past Family Social History Past Medical History History of anal cancer, status post chemotherapy and radiation Fecal incontinence secondary to above COPD IBS Past Surgical History Hysterectomy Breast augmentation Reported Medications Reported Meds & Active Scripts Active Keflex (Cephalexin) 500 Mg Capsule 500 Mg PO Q6H 10 Days Bactrim DS (Sulfamethoxazole-Trimethoprim) 800-160 Mg Tab 1 Tab PO BID Reported Atrovent HFA 12.9 GM Inh (Ipratropium [place]) 17 Mcg/Actuation Aer 2 Puff INH Q6HR PRN Proair Hfa 8.5 GM Inh (Albuterol Sulfate) 90 Mcg/Act Aer 2 Puff INH Q4-6H PRN 108 mcg/actuation Hydrocodone-Acetaminophen 10-325 mg Tab 1 Tab PO Q4H PRN Zyrtec (Cetirizine HCl) 10 Mg Capsule 10 Mg PO DAILY Methocarbamol 500 Mg Tab 500 Mg PO BID Combivent Respimat Inh (Ipratropium-Albuterol Inh) 20-100 Alf/Act Aero 1 Puff INH QID Singulair (Montelukast Sodium) 4 Mg Chew 4 Mg CHEW HS Omeprazole 10 Mg Cap 10 Mg PO DAILY Buspirone (Buspirone HCl) 7.5 Mg Tab 7.5 Mg PO BID Morphine ER (Morphine Sulfate) 15 Mg Tab 15 Mg PO BID Hydrocodone-Acetaminophen 7.5-325 mg Tab 1 Tab PO Q4H PRN Allergies: Coded Allergies: No Known Allergies (Unverified Adverse Reaction, Unknown, 12/01/17) Family History Negative for CAD/DM. Social History Smokes approximately one pack of cigarettes weekly. Occasional alcohol. Denies marijuana, illicit drugs. Physical Exam Vital Signs Vital Signs Date Time Temp Pulse Resp B/P (MAP) Pulse Ox O2 Delivery O2 Flow Rate FiO2 12/01/17 18:50 97.9 84 18 112/48 (69) 100 Room Air 12/01/17 18:40 19 12/01/17 16:58 98.3 77 16 108/58 (75) 96 Room Air Physical Exam GENERAL: Cachectic female lying in bed SKIN: Left lower extremity with erythema and edema that extends from the dorsum of the foot to the knee. Warm to the touch. HEAD: Atraumatic. Normocephalic. No temporal or scalp tenderness. EYES: Pupils equal round and reactive. Extraocular motions intact. No scleral icterus. No injection or drainage. ENT: Nose without bleeding, purulent drainage or septal hematoma. Throat without erythema, tonsillar hypertrophy or exudate. Uvula midline. Airway patent. NECK: Trachea midline. No JVD or lymphadenopathy. Supple, nontender, no meningeal signs. CARDIOVASCULAR: Regular rate and rhythm without murmurs, gallops, or rubs. RESPIRATORY: Clear to auscultation. Breath sounds equal bilaterally. No wheezes , rales, or rhonchi. GASTROINTESTINAL: Abdomen soft, non-tender, nondistended. No hepato-splenomegaly , or palpable masses. No guarding. : Perianal and vulvar erythema with multiple areas of drainage. MUSCULOSKELETAL: Edema as above. NEUROLOGICAL: Awake and alert. Cranial nerves II through XII intact. Motor and sensory grossly within normal limits. Normal speech. Laboratory Laboratory Tests Test 12/01/17 17:15 12/01/17 19:05 White Blood Count 5.6 Red Blood Count 2.97 Hemoglobin 11.9 Hematocrit 35.0 Mean Corpuscular Volume 118.0 Mean Corpuscular Hemoglobin 40.1 Mean Corpuscular Hemoglobin Concent 34.0 Red Cell Distribution Width 15.9 Platelet Count 421 Mean Platelet Volume 6.3 Neutrophils (%) (Auto) 80.1 Lymphocytes (%) (Auto) 9.9 Monocytes (%) (Auto) 8.1 Eosinophils (%) (Auto) 1.4 Basophils (%) (Auto) 0.5 Neutrophils # (Auto) 4.5 Lymphocytes # (Auto) 0.6 Monocytes # (Auto) 0.5 Eosinophils # (Auto) 0.1 Basophils # (Auto) 0.0 CBC Comment DIFF FINAL Differential Comment Prothrombin Time 11.6 Prothromb Time International Ratio 1.1 Activated Partial Thromboplast Time 27.1 Blood Urea Nitrogen 3 Creatinine 0.46 Random Glucose 79 Total Protein 5.9 Albumin 2.2 Calcium Level 7.9 Alkaline Phosphatase 76 Aspartate Amino Transf (AST/SGOT) 21 Alanine Aminotransferase (ALT/SGPT) 22 Total Bilirubin 0.3 Sodium Level 137 Potassium Level 3.2 Chloride Level 103 Carbon Dioxide Level 28.6 Anion Gap 5 Estimat Glomerular Filtration Rate 138 Lactic Acid Level 2.4 Date/Time Source Procedure Growth Status 12/01/17 19:05 Blood Peripheral Aerobic Blood Culture Pending Received 12/01/17 19:05 Blood Peripheral Anaerobic Blood Culture Pending Received Result Diagram: 12/01/17 1715 12/01/17 1715 Caprini VTE Risk Assessment Caprini VTE Risk Assessment: Mod/High Risk (score >= 2) Caprini Risk Assessment Model Point Value = 1 Point Value = 2 Point Value = 3 Point Value = 5 Age 41-60 Minor surgery BMI > 25 kg/m2 Swollen legs Varicose veins or History of unexplained or recurrent spontaneous Oral contraceptives or hormone replacement Sepsis (< 1 month) Serious lung disease, including pneumonia (< 1 month) Abnormal pulmonary function Acute myocardial infarction Congestive heart failure (< 1 month) History of inflammatory bowel disease Medical patient at bed rest Age 61-74 Arthroscopic surgery Major open surgery (> 45 min) Laparoscopic surgery (> 45 min) Malignancy Confined to bed (> 72 hours) Immobilizing plaster cast Central venous access Age >= 75 History of VTE Family history of VTE Factor V Leiden Prothrombin [id number] Lupus anticoagulant Anticardiolipin antibodies Elevated serum homocysteine Heparin-induced thrombocytopenia Other congenital or acquired thrombophilia Stroke (< 1 month) Elective arthroplasty Hip, pelvis, or leg fracture Acute spinal cord injury (< 1 month) Prophylaxis Regimen Total Risk Factor Score Risk Level Prophylaxis Regimen 0-1 Low Early ambulation 2 Moderate Order ONE of the following: *Sequential Compression Device (SCD) *Heparin 5000 units SQ BID 3-4 Higher Order ONE of the following medications: *Heparin 5000 units SQ TID *Enoxaparin/Lovenox 40 mg SQ daily (WT < 150 kg, CrCl > 30 mL/min) *Enoxaparin/Lovenox 30 mg SQ daily (WT < 150 kg, CrCl > 10-29 mL/min) *Enoxaparin/Lovenox 30 mg SQ BID (WT < 150 kg, CrCl > 30 mL/min) AND/OR *Sequential Compression Device (SCD) 5 or more Highest Order ONE of the following medications: *Heparin 5000 units SQ TID (Preferred with Epidurals) *Enoxaparin/Lovenox 40 mg SQ daily (WT < 150 kg, CrCl > 30 mL/min) *Enoxaparin/Lovenox 30 mg SQ daily (WT < 150 kg, CrCl > 10-29 mL/min) *Enoxaparin/Lovenox 30 mg SQ BID (WT < 150 kg, CrCl > 30 mL/min) AND *Sequential Compression Device (SCD) Assessment and Plan Assessment and Plan Assessment/plan: 1. Cellulitis, failed outpatient therapy No leukocytosis, elevated lactic acid at 2.4 Repeat lactic acid pending IV clindamycin IV Morphine for breakthrough pain Blood cultures pending Anticipate transition to by mouth antibiotics in the next 24-48 hours if clinical improvement Monitor for signs of sepsis 2. Hypokalemia Status post by mouth repletion Follow-up BMP 3. COPD Duo nebs when necessary 4. History of anal cancer Patient scheduled for diverting colostomy with Dr. Gore on 12/20 Continue Oramorph for pain Aquaphor ointment Consult wound care FEN Regular diet Electrolytes: As above Heparin Physician Certification 2 Midnight Certification Type: Admission for Inpatient Services Order for Inpatient Services The services are ordered in accordance with Medicare regulations or non- Medicare payer requirements, as applicable. In the case of services not specified as inpatient-only, they are appropriately provided as inpatient services in accordance with the 2-midnight benchmark. Estimated LOS (days): 2 2 days is the estimated time the patient will need to remain in the hospital, assuming treatment plan goals are met and no additional complications. Post-Hospital Plan: Not yet determined Purnima Whitehead MD Dec 01, 2017 22:16
[2017-12-01] MEDS: HEPARIN SODIUM - SQ 10,000 UNITS/ML VIAL SQ SCH (22:31)
[2017-12-01] MEDS: SODIUM CHLOR 0.9% 1000 ML INJ 1,000 ML IV SCH (22:31)
[2017-12-01] MEDS: MORPHINE SULFATE 4 MG/ML INJ IV PUSH PRN (23:07)
[2017-12-02] VITALS: BP 99/49; PULSE 84; RESP 20; TEMP 97.8; O2SAT 98
[2017-12-02] MEDS: CLINDAMYCIN 600 MG/NS PREMIX 50 ML IV SCH ×4 (01:35→20:00)
[2017-12-02] MEDS: HEPARIN SODIUM - SQ 10,000 UNITS/ML VIAL SQ SCH ×3 (04:48→23:59)
[2017-12-02] MEDS: MORPHINE SULFATE 4 MG/ML INJ IV PUSH PRN (04:52)
[2017-12-02 06:05] LABS: AUTOMATED NEUTROPHIL # 4.2 TH/MM3 (1.8-7.7); BASOPHIL % 0.8 % (0.0-2.0); EOSINOPHIL # 0.1 TH/MM3 (0-0.4); EOSINOPHIL % 1.7 % (0.0-4.0); HEMATOCRIT 31.7 % (35.0-46.0); HEMOGLOBIN 10.7 GM/DL (11.6-15.3); LYMPH % 10.9 % (9.0-44.0); LYMPHOCYTE # 0.6 TH/MM3 (1.0-4.8); MEAN CELL VOLUME 118.7 FL (80.0-100.0); MEAN CORPUSCULAR HEMOGLOBIN 40.2 PG (27.0-34.0); MEAN CORPUSCULAR HGB CONC 33.9 % (32.0-36.0); MEAN PLATELET VOLUME 6.2 FL (7.0-11.0); MONO % 7.9 % (0.0-8.0); MONOCYTE # 0.4 TH/MM3 (0-0.9); NEUT % 78.7 % (16.0-70.0); PLATELET COUNT 366 TH/MM3 (150-450); RED BLOOD COUNT 2.67 MIL/MM3 (4.00-5.30); RED CELL DISTRIBUTION WIDTH 16.1 % (11.6-17.2); WHITE BLOOD COUNT 5.3 TH/MM3 (4.0-11.0)
[2017-12-02 06:26] LABS: BICARBONATE 27.1 MEQ/L (21.0-32.0); CALCIUM 7.7 MG/DL (8.5-10.1); CREATININE 0.52 MG/DL (0.50-1.00)
[2017-12-02 08:00] VITALS: BP 95/54; PULSE 76; RESP 17; TEMP 97.9; O2SAT 93
[2017-12-02] MEDS: PANTOPRAZOLE SOD 20 MG DELAYED RELEASE TAB PO SCH (08:57)
[2017-12-02] MEDS: CETIRIZINE HCL 10 MG TAB PO SCH (08:58)
[2017-12-02] MEDS: METHOCARBAMOL 500 MG TAB PO SCH ×2 (08:58→23:55)
[2017-12-02] MEDS: MORPHINE SULFATE 15 MG CONTROLLED RELEASE TAB PO SCH ×2 (08:58→23:57)
[2017-12-02] MEDS: SODIUM CHLORIDE 0.9% FLUSH 10 ML FLUSH IV FLUSH SCH ×2 (09:12→21:00)
[2017-12-02] MEDS: busPIRone HCL 5 MG TAB PO SCH ×2 (09:12→21:00)
[2017-12-02] MEDS: TIOTROPIUM BROMIDE 18 MCG INH INH SCH (09:13)
[2017-12-02] MEDS: ALBUTEROL SULFATE 90 MCG/ACT HFA 8 GM INHALER INH SCH ×3 (09:14→18:19)
[2017-12-02] MEDS: SODIUM CHLOR 0.9% 1000 ML INJ 1,000 ML IV SCH ×2 (09:15→18:20)
[2017-12-02 12:00] VITALS: BP 96/52; PULSE 70; RESP 16; TEMP 98; O2SAT 94
[2017-12-02] MEDS: MORPHINE SULFATE 2 MG/ML INJ IV PUSH PRN ×2 (12:55→14:18)
--- NOTE | 2017-12-02 14:39 | PD.WCN.NOT ---
Wound Consult Description: Consult for WOUND MANAGEMENT of rectum per Dr Whitehead Communicated with: Patient WALDEMAR Torres Recommendation: Continue with Aquaphor until ritters cream can be obtained. WALDEMAR Torres called Dr Russell office for "ritters cream" Additional Information: Patient seen on 7 for perirectum open wound with yellow tissue noted throughout wound bed noted @9 o'clock. Entire perirectal area is erythematous, edematous, red, shiny, and painful as stated by patient. There appears to be fissures noted @3 o'clock and 5 o'clock. There is no drainage noted at this time from the rectal areas. When attempting to apply stoma powder and skin prep to the area for encrusting, patient stated burning and the need to use the restroom. Patient was assisted to the bathroom and given Aquaphor as requested for pain to the rectal area. 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 WALDEMAR Torres notified of patient pain and encrusting with stoma powder and Cavilon no sting skin barrier film to the open area. Patient is noted in 2 briefs and ambulating. Briefs with remaining powder on them were removed and new clean briefs obtained for patient prior to leaving room. Roselyn Fonseca [facility]LBY HOSPITALChely Dec 02, 2017 14:39
--- NOTE | 2017-12-02 15:34 | HHI.PR ---
Subjective Remarks States that she is having impending surgery later in December. She states that her left lower leg redness seems similar. She denies any shortness of breath. Objective Vitals Vital Signs Date Time Temp Pulse Resp B/P (MAP) Pulse Ox O2 Delivery O2 Flow Rate FiO2 12/02/17 12:00 98.0 70 16 96/52 (67) 94 12/02/17 08:00 97.9 76 17 95/54 (68) 93 12/02/17 05:38 20 12/02/17 00:00 97.8 84 20 99/49 (66) 98 12/01/17 18:50 97.9 84 18 112/48 (69) 100 Room Air 12/01/17 18:40 19 12/01/17 16:58 98.3 77 16 108/58 (75) 96 Room Air I/O 12/01/17 12/01/17 12/01/17 12/02/17 12/02/17 12/02/17 07:00 15:00 23:00 07:00 15:00 23:00 Intake Total 360 ml Balance 360 ml Intake Oral 360 ml # Voids 3 # Bowel Movements 1 Result Diagram: 12/02/17 0420 12/02/17 0420 Other Results Last Impressions Lower Extremity Ultrasound 12/01/17 0000 Signed Impressions: Service Date/Time: Friday, December 01, 2017 20:33 - CONCLUSION: 1. No evidence of deep venous thrombosis. 2. Left popliteal cyst measuring 4.7 x 2.4 x 1.2 cm. Reyes Hein MD Imaging Last Impressions Lower Extremity Ultrasound 12/01/17 0000 Signed Impressions: Service Date/Time: Friday, December 01, 2017 20:33 - CONCLUSION: 1. No evidence of deep venous thrombosis. 2. Left popliteal cyst measuring 4.7 x 2.4 x 1.2 cm. Reyes Hein MD Objective Remarks GENERAL: This is a well-nourished, well-developed patient, in no apparent distress. CARDIOVASCULAR: Regular rate and rhythm RESPIRATORY: Clear to auscultation. Breath sounds equal bilaterally. No wheezes , rales, or rhonchi. GASTROINTESTINAL: Abdomen soft, non-tender, nondistended. Normal active bowel sounds MUSCULOSKELETAL: Left lower extremity with lower redness around the ankle and distal extremity with 1+ edema, no significant abscess. Multiple areas of macular papular lesions in the lower extremity NEURO: Alert & Oriented x4 to person, place, time, situation. Moves all ext x4 A/P Assessment and Plan 1. Cellulitis, failed outpatient therapy No leukocytosis, elevated lactic acid at 2.4 likely due to history of anal cancer and not true sepsis as patient does not meet the 2 sirs criteria Repeat lactic acid trending down IV clindamycin IV Morphine for breakthrough pain; continue home oral scheduled Oramorph Blood cultures pending Monitor for clinical improvement 2. Hypokalemia- supplemented Status post by mouth -replete Follow-up BMP 3. COPD- no signs of acute exacerbation Duo nebs when necessary 4. History of anal cancer Patient scheduled for diverting colostomy with Dr. Gore on 12/20 Continue Oramorph for pain Aquaphor ointment Consult wound care 5. FEN Regular diet Electrolytes: As above Heparin Discharge Planning Home pending clinical improvement cellulitis. Petrona Marcus MD Dec 02, 2017 15:34
[2017-12-02 16:00] VITALS: BP 92/54; PULSE 76; RESP 16; TEMP 96.6; O2SAT 95
[2017-12-02] MEDS: SILVER SULFADIAZINE/LIDOCAINE CREAM 60 GM JAR RECTAL PRN (18:19)
[2017-12-02 20:00] VITALS: BP 94/50; PULSE 70; RESP 16; TEMP 96.7; O2SAT 97
[2017-12-02] MEDS: MONTELUKAST SODIUM 4 MG CHEWABLE TAB CHEW SCH (23:55)
[2017-12-03] VITALS: BP 106/57; PULSE 80; RESP 16; TEMP 96.8; O2SAT 99
[2017-12-03] MEDS: ALBUTEROL SULFATE 90 MCG/ACT HFA 8 GM INHALER INH SCH ×5 (00:08→21:59)
[2017-12-03] MEDS: SILVER SULFADIAZINE/LIDOCAINE CREAM 60 GM JAR RECTAL PRN ×2 (00:12→08:16)
[2017-12-03] MEDS: MORPHINE SULFATE 2 MG/ML INJ IV PUSH PRN ×3 (02:26→11:49)
[2017-12-03] MEDS: SODIUM CHLORIDE 0.9% FLUSH 10 ML FLUSH IV FLUSH PRN ×2 (02:26→05:48)
[2017-12-03] MEDS: CLINDAMYCIN 600 MG/NS PREMIX 50 ML IV SCH ×4 (02:27→21:58)
[2017-12-03] MEDS: HEPARIN SODIUM - SQ 10,000 UNITS/ML VIAL SQ SCH ×3 (05:48→20:35)
[2017-12-03] MEDS: SODIUM CHLOR 0.9% 1000 ML INJ 1,000 ML IV SCH ×3 (05:52→16:31)
[2017-12-03 07:51] VITALS: BP 91/52; PULSE 72; RESP 16; TEMP 97.6; O2SAT 96
[2017-12-03] MEDS: PANTOPRAZOLE SOD 20 MG DELAYED RELEASE TAB PO SCH (08:34)
[2017-12-03] MEDS: METHOCARBAMOL 500 MG TAB PO SCH ×2 (08:34→20:35)
[2017-12-03] MEDS: CETIRIZINE HCL 10 MG TAB PO SCH (08:35)
[2017-12-03] MEDS: MORPHINE SULFATE 15 MG CONTROLLED RELEASE TAB PO SCH ×2 (08:35→20:35)
[2017-12-03] MEDS: SENNOSIDES 8.6 MG TAB PO PRN ×2 (08:40)
[2017-12-03] MEDS: TIOTROPIUM BROMIDE 18 MCG INH INH SCH (08:42)
[2017-12-03] MEDS: SODIUM CHLORIDE 0.9% FLUSH 10 ML FLUSH IV FLUSH SCH ×2 (08:43→11:50)
[2017-12-03] MEDS: busPIRone HCL 5 MG TAB PO SCH ×3 (09:00→21:59)
--- NOTE | 2017-12-03 11:13 | HHI.PR ---
Subjective Remarks Patient complained of anal pain and wants a prescription for her chronic pain medication until she can follow-up with Dr. Gore. She denies any fevers or chills. Objective Vitals Vital Signs Date Time Temp Pulse Resp B/P (MAP) Pulse Ox O2 Delivery O2 Flow Rate FiO2 12/03/17 09:35 18 12/03/17 07:51 97.6 72 16 91/52 (65) 96 12/03/17 00:00 96.8 80 16 106/57 (73) 99 12/02/17 20:00 96.7 70 16 94/50 (65) 97 12/02/17 16:00 96.6 76 16 92/54 (67) 95 12/02/17 13:00 18 12/02/17 12:00 98.0 70 16 96/52 (67) 94 I/O 12/02/17 12/02/17 12/02/17 12/03/17 12/03/17 12/03/17 07:00 15:00 23:00 07:00 15:00 23:00 Intake Total 360 ml 1010 ml Balance 360 ml 1010 ml Intake Oral 360 ml 960 ml IV Total 50 ml # Voids 3 4 2 # Bowel Movements 1 0 Result Diagram: 12/02/17 0420 12/02/17 0420 Other Results Microbiology Date/Time Source Procedure Growth Status 12/01/17 19:05 Blood Peripheral Aerobic Blood Culture - Preliminary NO GROWTH IN 2 DAYS Resulted 12/01/17 19:05 Blood Peripheral Anaerobic Blood Culture - Preliminary NO GROWTH IN 2 DAYS Resulted Objective Remarks GENERAL: This is a well-nourished, well-developed patient, in no apparent distress. CARDIOVASCULAR: Regular rate and rhythm RESPIRATORY: Clear to auscultation. Breath sounds equal bilaterally. No wheezes , rales, or rhonchi. GASTROINTESTINAL: Abdomen soft, non-tender, nondistended. Normal active bowel sounds MUSCULOSKELETAL: Left lower extremity with resolving lower redness around the ankle and distal extremity with trace edema, no significant abscess. Multiple areas of macular papular lesions in the lower extremity NEURO: Alert & Oriented x4 to person, place, time, situation. Moves all ext x4 A/P Assessment and Plan 1. Cellulitis, failed outpatient therapy No leukocytosis, elevated lactic acid at 2.4 likely due to history of anal cancer and not true sepsis as patient does not meet the 2 sirs criteria Responding well to IV clindamycin, consideration of discharge in the morning if continues to clinically improve. IV Morphine for breakthrough pain; continue home oral scheduled Oramorph Blood cultures pending and currently negative. 2. Hypokalemia- supplemented Status post by mouth -replete Follow-up BMP 3. COPD- no signs of acute exacerbation Duo nebs when necessary 4. History of anal cancer Patient scheduled for diverting colostomy with Dr. Gore on 12/20 Continue Oramorph for pain Aquaphor ointment Appreciate wound care's recommendations. 5. DVT prophylaxis- heparin Discharge Planning Likely to discharge to home in the morning if patient continues to improve. Petrona Marcus MD Dec 03, 2017 11:13
[2017-12-03 12:23] VITALS: BP 127/61; PULSE 82; RESP 18; TEMP 96.4; O2SAT 95
[2017-12-03 16:00] VITALS: BP 105/51; PULSE 80; RESP 18; TEMP 97.2; O2SAT 99
[2017-12-03 20:00] VITALS: BP 105/59; PULSE 80; RESP 20; TEMP 96.8; O2SAT 97
[2017-12-03] MEDS: MONTELUKAST SODIUM 4 MG CHEWABLE TAB CHEW SCH (21:59)
[2017-12-04] VITALS: BP 107/58; PULSE 66; RESP 18; TEMP 96.8; O2SAT 93
[2017-12-04] MEDS: CLINDAMYCIN 600 MG/NS PREMIX 50 ML IV SCH ×2 (02:35→08:35)
[2017-12-04] MEDS: MORPHINE SULFATE 4 MG/ML INJ IV PUSH PRN (03:08)
[2017-12-04] MEDS: HEPARIN SODIUM - SQ 10,000 UNITS/ML VIAL SQ SCH (04:40)
[2017-12-04 08:00] VITALS: BP 116/69; PULSE 75; RESP 16; TEMP 97.8; O2SAT 95
[2017-12-04] MEDS: ALBUTEROL SULFATE 90 MCG/ACT HFA 8 GM INHALER INH SCH (08:31)
[2017-12-04] MEDS: TIOTROPIUM BROMIDE 18 MCG INH INH SCH (08:32)
[2017-12-04] MEDS: PANTOPRAZOLE SOD 20 MG DELAYED RELEASE TAB PO SCH (08:35)
[2017-12-04] MEDS: METHOCARBAMOL 500 MG TAB PO SCH (08:36)
[2017-12-04] MEDS: CETIRIZINE HCL 10 MG TAB PO SCH (08:36)
[2017-12-04] MEDS: busPIRone HCL 5 MG TAB PO SCH (08:36)
[2017-12-04] MEDS: SODIUM CHLORIDE 0.9% FLUSH 10 ML FLUSH IV FLUSH SCH (08:37)
[2017-12-04] MEDS: MORPHINE SULFATE 15 MG CONTROLLED RELEASE TAB PO SCH (08:37)
[2017-12-04] MEDS: SODIUM CHLOR 0.9% 1000 ML INJ 1,000 ML IV SCH (08:39)
[2017-12-04] MEDS: SILVER SULFADIAZINE/LIDOCAINE CREAM 60 GM JAR RECTAL PRN (08:42)
--- NOTE | 2017-12-04 10:18 | HHI.FF ---
Face to Face Verification Diagnosis: (1) Chronic pain (2) Cellulitis of left lower extremity (3) Lactic acidosis (4) Hypokalemia Home Health Nursing Order: Medical education Signs/symptoms of disease process Nursing assessment with vital signs I have seen patient Abi Mccarty on 12/04/17. My clinical findings support the need for the requested home health care services because: Ltd mobility - disease progression I certify that my clinical findings support that this patient is homebound because: Unsteady gait/balance Unsafe to leave home unassisted Keith Gutiérrez DO Dec 04, 2017 10:18
--- NOTE | 2017-12-04 11:49 | HHI.PR ---
Subjective Remarks 62-year-old female with a past medical history significant for anal cancer, status post chemotherapy/radiation, COPD and IBS presents to the emergency department at the recommendation of Dr. Gore for a left lower extremity cellulitis that has failed outpatient treatment. The patient is status post treatment with Bactrim followed by Bev. Despite this her left lower extremity remains swollen, erythematous and edematous. It is warm to the touch and painful. Patient denies any fever/chills. Denies any chest pain, shortness of breath, nausea/vomiting. Vital signs: Temperature 98.3, pulse 77, respirations 16, BP 108/58, pulse ox 96% on room air. Improved redness in bilateral lower extremity less swelling Wants to go home Discharge to home today Objective Vitals Vital Signs Date Time Temp Pulse Resp B/P (MAP) Pulse Ox O2 Delivery O2 Flow Rate FiO2 12/04/17 08:00 97.8 75 16 116/69 (85) 95 12/04/17 00:00 96.8 66 18 107/58 (74) 93 12/03/17 20:00 96.8 80 20 105/59 (74) 97 12/03/17 16:00 97.2 80 18 105/51 (69) 99 12/03/17 12:23 96.4 82 18 127/61 (83) 95 12/03/17 11:54 18 I/O 12/03/17 12/03/17 12/03/17 12/04/17 12/04/17 12/04/17 07:00 15:00 23:00 07:00 15:00 23:00 Intake Total 670 ml 50 ml Output Total 1000 ml Balance 670 ml -950 ml Intake Oral 620 ml IV Total 50 ml 50 ml Output Urine Total 1000 ml # Voids 2 4 # Bowel Movements 0 Result Diagram: 12/02/17 0420 12/02/17 0420 Other Results Laboratory Tests Test 12/01/17 17:15 12/01/17 19:05 12/02/17 00:17 12/02/17 04:20 White Blood Count 5.6 TH/MM3 5.3 TH/MM3 Red Blood Count 2.97 MIL/MM3 2.67 MIL/MM3 Hemoglobin 11.9 GM/DL 10.7 GM/DL Hematocrit 35.0 % 31.7 % Mean Corpuscular Volume 118.0 FL 118.7 FL Mean Corpuscular Hemoglobin 40.1 PG 40.2 PG Mean Corpuscular Hemoglobin Concent 34.0 % 33.9 % Red Cell Distribution Width 15.9 % 16.1 % Platelet Count 421 TH/MM3 366 TH/MM3 Mean Platelet Volume 6.3 FL 6.2 FL Neutrophils (%) (Auto) 80.1 % 78.7 % Lymphocytes (%) (Auto) 9.9 % 10.9 % Monocytes (%) (Auto) 8.1 % 7.9 % Eosinophils (%) (Auto) 1.4 % 1.7 % Basophils (%) (Auto) 0.5 % 0.8 % Neutrophils # (Auto) 4.5 TH/MM3 4.2 TH/MM3 Lymphocytes # (Auto) 0.6 TH/MM3 0.6 TH/MM3 Monocytes # (Auto) 0.5 TH/MM3 0.4 TH/MM3 Eosinophils # (Auto) 0.1 TH/MM3 0.1 TH/MM3 Basophils # (Auto) 0.0 TH/MM3 0.0 TH/MM3 CBC Comment DIFF FINAL DIFF FINAL Differential Comment Prothrombin Time 11.6 SEC Prothromb Time International Ratio 1.1 RATIO Activated Partial Thromboplast Time 27.1 SEC Blood Urea Nitrogen 3 MG/DL 4 MG/DL Creatinine 0.46 MG/DL 0.52 MG/DL Random Glucose 79 MG/DL 82 MG/DL Total Protein 5.9 GM/DL Albumin 2.2 GM/DL Calcium Level 7.9 MG/DL 7.7 MG/DL Alkaline Phosphatase 76 U/L Aspartate Amino Transf (AST/SGOT) 21 U/L Alanine Aminotransferase (ALT/SGPT) 22 U/L Total Bilirubin 0.3 MG/DL Sodium Level 137 MEQ/L 140 MEQ/L Potassium Level 3.2 MEQ/L 3.6 MEQ/L Chloride Level 103 MEQ/L 107 MEQ/L Carbon Dioxide Level 28.6 MEQ/L 27.1 MEQ/L Anion Gap 5 MEQ/L 6 MEQ/L Estimat Glomerular Filtration Rate 138 ML/MIN 120 ML/MIN Lactic Acid Level 2.4 mmol/L 2.2 mmol/L Imaging Last Impressions Lower Extremity Ultrasound 12/01/17 0000 Signed Impressions: Service Date/Time: Friday, December 01, 2017 20:33 - CONCLUSION: 1. No evidence of deep venous thrombosis. 2. Left popliteal cyst measuring 4.7 x 2.4 x 1.2 cm. Reyes Hein MD Objective Remarks GENERAL: Awake alert oriented talkative and cooperative SKIN: Warm and dry. Improved swelling and erythema bilateral lower extremities HEAD: Atraumatic. Normocephalic. EYES: Pupils equal and round. No scleral icterus. No injection or drainage. Extraocular muscles intact ENT: No nasal bleeding or discharge. Mucous membranes pink and moist. Tongue is midline NECK: Trachea midline. No JVD. Supple CARDIOVASCULAR: Regular rate and rhythm. S1 and S2 no S3 or S4 RESPIRATORY: No accessory muscle use. Clear to auscultation. Breath sounds equal bilaterally. GASTROINTESTINAL: Abdomen soft, non-tender, nondistended. Hepatic and splenic margins not palpable. MUSCULOSKELETAL: Extremities without clubbing, cyanosis, or edema. No obvious deformities. NEUROLOGICAL: Awake and alert. No obvious cranial nerve deficits. Motor grossly within normal limits. 4 out of 5 muscle strength in the arms and legs. Normal speech. PSYCHIATRIC: Appropriate mood and affect; insight and judgment normal. Procedures NONE Medications and IVs Current Medications Clindamycin/ Sodium Chloride 50 ml @ 100 mls/hr ONCE ONCE IV Last administered on 12/01/17at 19:37; Start 12/01/17 at 19:15; Stop 12/01/17 at 19:44 ; Status DC Emollient Ointment (Aquaphor Oint) 1 applic ONCE ONCE TOPICAL Last administered on 12/01/17at 19:37; Start 12/01/17 at 19:15; Stop 12/01/17 at 19:16 ; Status DC Morphine Sulfate (Morphine Inj) 4 mg ONCE ONCE IV PUSH Last administered on 19:19; Start 12/01/17 at 19:15; Stop 12/01/17 at 19:16; Status DC Ondansetron HCl (Zofran Inj) 4 mg ONCE ONCE IV PUSH Last administered on 19:18; Start 12/01/17 at 19:15; Stop 12/01/17 at 19:16; Status DC Sodium Chloride 1,000 ml @ 999 mls/hr BOLUS ONCE IV Last administered on 12/01at 19:18; Start 12/01/17 at 19:15; Stop 12/01/17 at 20:15; Status DC Potassium Chloride (KCl) 20 meq ONCE ONCE PO Last administered on 12/01/17at 22 :30; Start 12/01/17 at 21:15; Stop 12/01/17 at 21:16; Status DC Sodium Chloride (NS Flush) 2 ml UNSCH PRN IV FLUSH FLUSH AFTER USING IV ACCESS Last administered on 12/03/17 05:48; Start 12/01/17 at 22:00 Sodium Chloride (NS Flush) 2 ml BID IV FLUSH Last administered on 12/03/17at 11: 50; Start 12/02/17 at 09:00 Acetaminophen (Tylenol) 650 mg Q4H PRN PO TEMP > 100.4; Start 12/01/17 at 22:00 Ondansetron HCl (Zofran Inj) 4 mg Q6H PRN IVP NAUSEA OR VOMITING; Start at 22:00 Heparin Sodium (Porcine) (Heparin Inj) 5,000 units Q8H SQ Last administered on 12/04/17 04:40; Start 12/01/17 at 22:00 Morphine Sulfate (Morphine Inj) 2 mg Q3H PRN IV PUSH Pain 1-5 Last administered on 12/03/17at 11:49; Start 12/01/17 at 22:00 Morphine Sulfate (Morphine Inj) 4 mg Q3H PRN IV PUSH PAIN 6-10 Last administered on 12/04/17 03:08; Start 12/01/17 at 22:15 Magnesium Hydroxide (Milk Of Magnesia Liq) 30 ml Q12H PRN PO Mild constipation ; Start 12/01/17 at 22:00 Sennosides (Senokot) 17.2 mg Q12H PRN PO Moderate constipation Last administered on 12/03/17at 08:40; Start 12/01/17 at 22:00 Bisacodyl (Dulcolax Supp) 10 mg DAILY PRN RECTAL SEVERE CONSITIPATION; Start at 22:00 Lactulose (Lactulose Liq) 30 ml DAILY PRN PO SEVERE CONSITIPATION; Start at 22:00 Clindamycin/ Sodium Chloride 50 ml @ 100 mls/hr Q6H IV Last administered on 12:54; Start 12/02/17 at 01:00; Stop 12/02/17 at 19:00; Status DC Sodium Chloride 1,000 ml @ 100 mls/hr Q10H IV Last administered on 12/04/17 08 :39; Start 12/01/17 at 22:00 Buspirone HCl (Buspar) 7.5 mg BID PO Last administered on 12/04/17 08:36; Start 12/02/17 at 09:00 Methocarbamol (Robaxin) 500 mg BID PO Last administered on 12/04/17 08:36; Start 12/02/17 at 09:00 Montelukast Sodium (Singulair Chew) 4 mg HS CHEW Last administered on 12/03/17 21:59; Start 12/02/17 at 21:00 Morphine Sulfate (Oramorph Sr) 15 mg BID PO Last administered on 12/04/17 08:37 ; Start 12/02/17 at 09:00 Cetirizine HCl (ZyrTEC) 10 mg DAILY PO Last administered on 12/04/17 08:36; Start 12/02/17 at 09:00 Tiotropium [place] (Spiriva Inh) 18 mcg DAILY INH Last administered on 08:32; Start 12/02/17 at 09:00 Pantoprazole Sodium (Protonix) 20 mg DAILY PO Last administered on 12/04/17 08: 35; Start 12/02/17 at 09:00 Albuterol/ Ipratropium (Duoneb Neb) 1 ampule Q4HR NEB PRN NEB sob, wheeze; Start 12/01/17 at 22:00 Albuterol/ Ipratropium (Duoneb Neb) 1 ampule Q4HR NEB PRN NEB SOB/Wheezing; Start 12/01/17 at 22:15 Potassium Chloride (KCl) 20 meq ONCE ONCE PO ; Start 12/01/17 at 22:15; Stop at 22:17; Status DC Albuterol Sulfate (Proair Hfa Inh) 2 puff QID INH Last administered on 08:31; Start 12/02/17 at 09:00 Compound Med (Ritters Cream) APPLY TO RECTUM NEEDED UNSCH PRN RECTAL RECTAL ITCH Last administered on 12/04/17 08:42; Start 12/02/17 at 15:30 Clindamycin/ Sodium Chloride 50 ml @ 100 mls/hr Q6H IV Last administered on 12/04/17at 08:35; Start 12/02/17 at 20:00 A/P Problem List: (1) Chronic pain ICD Code: G89.29 - Other chronic pain (2) Cellulitis of left lower extremity ICD Code: L03.116 - Cellulitis of left lower limb Status: Acute (3) Lactic acidosis ICD Code: E87.2 - Acidosis Status: Acute (4) Hypokalemia ICD Code: E87.6 - Hypokalemia Status: Acute Assessment and Plan Assessment and Plan 1. Cellulitis, failed outpatient therapy No leukocytosis, elevated lactic acid at 2.4 likely due to history of anal cancer and not true sepsis as patient does not meet the 2 sirs criteria Responding well to IV clindamycin, consideration of discharge in the morning if continues to clinically improve. IV Morphine for breakthrough pain; continue home oral scheduled Oramorph Blood cultures pending and currently negative. Switch to by mouth antibiotics 2. Hypokalemia- supplemented Status post by mouth -replete Follow-up BMP 3. COPD- no signs of acute exacerbation Duo nebs when necessary 4. History of anal cancer Patient scheduled for diverting colostomy with Dr. Gore on 12/20 Continue Oramorph for pain Aquaphor ointment Appreciate wound care's recommendations. 5. DVT prophylaxis- heparin DC to home today Discharge Planning DC TO HOME TODAY Keith Gutiérrez DO Dec 04, 2017 11:49
[2017-12-04] MEDS ORDERED: ALBUAER3 INH (11:55)
[2017-12-04] MEDS ORDERED: IPRAAER INH (11:55)
[2017-12-04] MEDS ORDERED: BUSP1TAB PO (11:55)
[2017-12-04] MEDS ORDERED: IPRA17I INH (11:55)
[2017-12-04] MEDS ORDERED: MORP1TAB24 PO (11:55)
[2017-12-04] MEDS ORDERED: METH500T3 PO (11:55)
[2017-12-04] MEDS ORDERED: Silv Sulfadiazine-Lidocaine Cr RECTAL (11:55)
[2017-12-04] MEDS ORDERED: CETI10CA3 PO (11:55)
[2017-12-04] MEDS ORDERED: PANT20 PO (11:55)
[2017-12-04] MEDS ORDERED: HYDR-3583 PO (11:55)
[2017-12-04] MEDS ORDERED: CLIN300C5 PO (11:55)
[2017-12-04] MEDS ORDERED: MONT4CHW2 CHEW (11:55)
--- NOTE | 2017-12-04 11:59 | HHI.DS ---
Discharge Summary Admission Date Dec 01, 2017 at 22:02 Discharge Date: Dec 04, 2017 Admitting Diagnosis cellulitis left lower extremity, hypokalemia, lactic acidosis (1) Chronic pain ICD Code: G89.29 - Other chronic pain Diagnosis: Secondary (2) Cellulitis of left lower extremity ICD Code: L03.116 - Cellulitis of left lower limb Diagnosis: Principal Status: Acute (3) Lactic acidosis ICD Code: E87.2 - Acidosis Diagnosis: Secondary Status: Acute (4) Hypokalemia ICD Code: E87.6 - Hypokalemia Diagnosis: Principal Status: Acute Procedures NONE Brief History - From Admission 62-year-old female with a past medical history significant for anal cancer, status post chemotherapy/radiation, COPD and IBS presents to the emergency department at the recommendation of Dr. Gore for a left lower extremity cellulitis that has failed outpatient treatment. The patient is status post treatment with Bactrim followed by Keflex. Despite this her left lower extremity remains swollen, erythematous and edematous. It is warm to the touch and painful. Patient denies any fever/chills. Denies any chest pain, shortness of breath, nausea/vomiting. Vital signs: Temperature 98.3, pulse 77, respirations 16, BP 108/58, pulse ox 96% on room air. CBC/BMP: 12/02/17 0420 12/02/17 0420 Significant Findings Laboratory Tests Test 12/01/17 17:15 12/01/17 19:05 12/02/17 00:17 12/02/17 04:20 Red Blood Count 2.97 MIL/MM3 (4.00-5.30) 2.67 MIL/MM3 (4.00-5.30) Mean Corpuscular Volume 118.0 FL (80.0-100.0) 118.7 FL (80.0-100.0) Mean Corpuscular Hemoglobin 40.1 PG (27.0-34.0) 40.2 PG (27.0-34.0) Mean Platelet Volume 6.3 FL (7.0-11.0) 6.2 FL (7.0-11.0) Neutrophils (%) (Auto) 80.1 % (16.0-70.0) 78.7 % (16.0-70.0) Monocytes (%) (Auto) 8.1 % (0.0-8.0) Lymphocytes # (Auto) 0.6 TH/MM3 (1.0-4.8) 0.6 TH/MM3 (1.0-4.8) Blood Urea Nitrogen 3 MG/DL (7-18) 4 MG/DL (7-18) Creatinine 0.46 MG/DL (0.50-1.00) Total Protein 5.9 GM/DL (6.4-8.2) Albumin 2.2 GM/DL (3.4-5.0) Calcium Level 7.9 MG/DL (8.5-10.1) 7.7 MG/DL (8.5-10.1) Potassium Level 3.2 MEQ/L (3.5-5.1) Lactic Acid Level 2.4 mmol/L (0.4-2.0) 2.2 mmol/L (0.4-2.0) Hemoglobin 10.7 GM/DL (11.6-15.3) Hematocrit 31.7 % (35.0-46.0) Imaging Last Impressions Lower Extremity Ultrasound 12/01/17 0000 Signed Impressions: Service Date/Time: Friday, December 01, 2017 20:33 - CONCLUSION: 1. No evidence of deep venous thrombosis. 2. Left popliteal cyst measuring 4.7 x 2.4 x 1.2 cm. Reyes Hein MD PE at Discharge GENERAL: Awake alert oriented talkative and cooperative SKIN: Warm and dry. Improved swelling and erythema bilateral lower extremities HEAD: Atraumatic. Normocephalic. EYES: Pupils equal and round. No scleral icterus. No injection or drainage. Extraocular muscles intact ENT: No nasal bleeding or discharge. Mucous membranes pink and moist. Tongue is midline NECK: Trachea midline. No JVD. Supple CARDIOVASCULAR: Regular rate and rhythm. S1 and S2 no S3 or S4 RESPIRATORY: No accessory muscle use. Clear to auscultation. Breath sounds equal bilaterally. GASTROINTESTINAL: Abdomen soft, non-tender, nondistended. Hepatic and splenic margins not palpable. MUSCULOSKELETAL: Extremities without clubbing, cyanosis, or edema. No obvious deformities. NEUROLOGICAL: Awake and alert. No obvious cranial nerve deficits. Motor grossly within normal limits. 4 out of 5 muscle strength in the arms and legs. Normal speech. PSYCHIATRIC: Appropriate mood and affect; insight and judgment normal. Hospital Course 62-year-old female with a past medical history significant for anal cancer, status post chemotherapy/radiation, COPD and IBS presents to the emergency department at the recommendation of Dr. Gore for a left lower extremity cellulitis that has failed outpatient treatment. The patient is status post treatment with Bactrim followed by [place]. Despite this her left lower extremity remains swollen, erythematous and edematous. It is warm to the touch and painful. Patient denies any fever/chills. Denies any chest pain, shortness of breath, nausea/vomiting. Vital signs: Temperature 98.3, pulse 77, respirations 16, BP 108/58, pulse ox 96% on room air. Improved redness in bilateral lower extremity less swelling Wants to go home Discharge to home today Pt Condition on Discharge: Good Discharge Disposition: Discharge Home Discharge Time: <= 30 minutes Discharge Instructions DIET: Follow Instructions for: Heart Healthy Diet Speech Therapy-Diet Recommends: Regular Activities you can perform: Regular-No Restrictions Follow up Referrals: Colorectal Surgery [facility] with Vijay Gore MD PCP Follow-up New Medications: Clindamycin (Clindamycin) 300 Mg Cap 300 MG PO TID for Infection for 10 Days, #30 CAP 0 Refills Pantoprazole (Protonix) 20 Mg Tab 20 MG PO DAILY for Manage Heartburn, #30 TAB [Silv Sulfadiazine-Lidocaine Cr] () 60 APPLIC/60 GM CR 0 APPLIC RECTAL UNSCH PRN for RECTAL ITCH, #180 GM Continued Medications: Albuterol 8.5 GM Inh (Proair Hfa 8.5 GM Inh) 90 Mcg/Act Aer 2 PUFF INH Q4-6H PRN for SHORTNESS OF BREATH, #1 INHALER 0 Refills (This prescription has been renewed) 108 mcg/actuation Buspirone (Buspirone) 7.5 Mg Tab 7.5 MG PO BID for Anxiety, #60 TAB 0 Refills (This prescription has been renewed ) Cetirizine HCl (Zyrtec) 10 Mg Capsule 10 MG PO DAILY for Allergies, #30 CAP (This prescription has been renewed) Hydrocodone-Acetaminophen (Hydrocodone-Acetaminophen) 10-325 mg Tab 1 TAB PO Q4H PRN for PAIN, #60 TAB 0 Refills (This prescription has been renewed ) Ipratropium HFA 12.9 GM Inh (Atrovent HFA 12.9 GM Inh) 17 Mcg/Actuation Aer 2 PUFF INH Q6HR PRN for SHORTNESS OF BREATH, #1 INHALER 0 Refills (This prescription has been renewed) Ipratropium-Albuterol Inh (Combivent Respimat Inh) 20-100 Long Term/Act Aero 1 PUFF INH QID for Asthma Management, #1 INHALER 0 Refills (This prescription has been renewed) Methocarbamol (Methocarbamol) 500 Mg Tab 500 MG PO BID for Muscle Spasm, #120 TAB 0 Refills (This prescription has been renewed) Montelukast (Singulair) 4 Mg Chew 4 MG CHEW HS for Allergies, #30 TAB 0 Refills (This prescription has been renewed) Morphine ER (Morphine ER) 15 Mg Tab 15 MG PO BID for Pain Management, #60 TAB 0 Refills (This prescription has been renewed) Discontinued Medications: Cephalexin (Keflex) 500 Mg Capsule 500 MG PO Q6H for Infection for 10 Days, #40 CAP 0 Refills Hydrocodone-Acetaminophen (Hydrocodone-Acetaminophen) 7.5-325 mg Tab 1 TAB PO Q4H PRN for PAIN, TAB 0 Refills Omeprazole (Omeprazole) 10 Mg Cap 10 MG PO DAILY, #30 CAP 0 Refills Sulfamethoxazole-Trimethoprim (Bactrim DS) 800-160 Mg Tab 1 TAB PO BID for Infection, #20 TAB 0 Refills Keith Gutiérrez DO Dec 04, 2017 11:58
[2017-12-04 12:00] VITALS: BP 104/59; PULSE 78; RESP 16; TEMP 97.9; O2SAT 96
== END 2017-12-04 14:32 | disposition home or self-care (01) | DRG 603 ==
LOC: NEPE 16:56 → NEDA 21:20 → OBSVTOIN 22:02 → N07B 22:36
PROVIDERS: ADMIT Hospitalist; ATTEND Hospitalist
DX: L03.116 Cellulitis of left lower limb (principal); R64 Cachexia; E87.2 Acidosis; Z68.1 Body mass index [BMI] 19.9 or less, adult; E87.6 Hypokalemia; Z92.21 Personal history of antineoplastic chemotherapy; Z85.048 Personal history of other malignant neoplasm of rectum, rectosigmoid junction, and anus; J44.9 Chronic obstructive pulmonary disease, unspecified; Z92.3 Personal history of irradiation; K58.9 Irritable bowel syndrome, unspecified; F17.210 Nicotine dependence, cigarettes, uncomplicated; R15.9 Full incontinence of feces; G89.29 Other chronic pain; Z98.82 Breast implant status
CPT/HCPCS: 80048; 80053; 83605; 85025; 85610; 85730; 87040; 93971; 96365; 96375; J1644; J2270; J2405; J7030

== ENCOUNTER 2017-12-04 18:08 | Emergency (ER) | payer MEDICAID ==
[~2017-12-04] VITALS: Ht 167.6 cm; Wt 55.0 kg
[~2017-12-04 18:08] MED LIST changes: +ALBUAER3 INH; -BACT800T5 PO; -CEPH-460 PO; +CLIN300C5 PO; +HYDR-3583 PO; +IPRA17I INH; +PANT20 PO; +Silv Sulfadiazine-Lidocaine Cr RECTAL
[2017-12-04 18:22] VITALS: BP 116/57; PULSE 80; RESP 16; TEMP 98.2; O2SAT 100
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
[2017-12-04 19:19] LABS: AUTOMATED NEUTROPHIL # 5.5 TH/MM3 (1.8-7.7); BASOPHIL % 0.4 % (0.0-2.0); EOSINOPHIL # 0.1 TH/MM3 (0-0.4); HEMATOCRIT 32.4 % (35.0-46.0); HEMOGLOBIN 11.1 GM/DL (11.6-15.3); LYMPH % 7.5 % (9.0-44.0); LYMPHOCYTE # 0.5 TH/MM3 (1.0-4.8); MEAN CELL VOLUME 119.1 FL (80.0-100.0); MEAN CORPUSCULAR HEMOGLOBIN 40.9 PG (27.0-34.0); MEAN CORPUSCULAR HGB CONC 34.4 % (32.0-36.0); MEAN PLATELET VOLUME 6.6 FL (7.0-11.0); MONO % 7.4 % (0.0-8.0); MONOCYTE # 0.5 TH/MM3 (0-0.9); NEUT % 83.7 % (16.0-70.0); PLATELET COUNT 373 TH/MM3 (150-450); RED BLOOD COUNT 2.72 MIL/MM3 (4.00-5.30); RED CELL DISTRIBUTION WIDTH 15.5 % (11.6-17.2); WHITE BLOOD COUNT 6.5 TH/MM3 (4.0-11.0)
[2017-12-04 19:35] LABS: BICARBONATE 21.6 MEQ/L (21.0-32.0); CALCIUM 6.9 MG/DL (8.5-10.1); CREATININE 0.47 MG/DL (0.50-1.00)
[2017-12-04 19:46] LABS: CALCIUM-PROTEIN CORRECTED 7.6 MG/DL (8.5-10.1); TOTAL PROTEIN 5.7 GM/DL (6.4-8.2)
[2017-12-04] MEDS ORDERED: DEXTROSE 50% IN WATER 50 ML VIAL(D50) IV PUSH ONE (20:15)
[2017-12-04] MEDS ORDERED: CALCIUM GLUCONATE INJ 1 GM in DEXTROSE 5% IN WATER 100ML INJ 100 ML IV ONE ×2 (20:15)
[2017-12-04] MEDS ORDERED: THIAMINE INJ 100 MG in SODIUM CHLORIDE 0.9% INJ 100 ML IV ONE (20:15)
[2017-12-05] MEDS ORDERED: SILVER SULFADIAZINE 1% CR 50 GM JAR TOPICAL ONE
[2017-12-05] MEDS ORDERED: DEXTROSE 50% IN WATER 50 ML VIAL(D50) IV PUSH ONE (00:15)
[2017-12-05 00:38] VITALS: BP 145/82; PULSE 80; RESP 16; O2SAT 97
== END 2017-12-05 00:39 | disposition home or self-care (01) ==
LOC: NEPD 18:08
DX: E16.2 Hypoglycemia, unspecified (principal); E83.51 Hypocalcemia; F10.129 Alcohol abuse with intoxication, unspecified; Y90.6 Blood alcohol level of 120-199 mg/100 ml; C21.0 Malignant neoplasm of anus, unspecified; F41.9 Anxiety disorder, unspecified; J44.9 Chronic obstructive pulmonary disease, unspecified; K58.9 Irritable bowel syndrome, unspecified; F17.200 Nicotine dependence, unspecified, uncomplicated
CPT/HCPCS: 16000; 80048; 80307; 84155; 85025; 96365; 96366; 96367; 96375; 99284; J0610; J3411

== ENCOUNTER 2017-12-05 19:23 | Emergency (ER) | payer MEDICAID ==
[2017-12-05 19:32] VITALS: TEMP 98.7
[2017-12-05 19:36] VITALS: BP 138/65; PULSE 100; RESP 16; TEMP 98.1; O2SAT 100
--- NOTE | 2017-12-05 19:58 | PD ---
HPI Chief Complaint: Pain: Acute or Chronic Time Seen by Provider: 19:38 Travel History International Travel<30 days: No Contact w/Intl Traveler<30days: No Traveled to known affect area: No History of Present Illness HPI 62-year-old female was brought in by EMS for rectal pain. Patient was admitted to [facility] any and discharged yesterday for chronic pain, cellulitis to left lower extremity, left the acidosis and hypokalemia. She returned later in the day for further evaluation. Patient has history of anal cancer status post chemotherapy, radiation therapy and pending surgery by Dr. Gore. Patient was treated for cellulitis and discharged with prescription for clindamycin. She is here today complaining of chronic pain to the rectum which is worse today, throbbing, typically relieved with rash from morphine. She has a prescription for morphine but she has not yet been able to get it filled at the pharmacy. She does report that she is currently using hydrocodone for pain as well as Aquaphor, silver sulfadiazine/lidocaine cream. She denies any abdominal pain, nausea or vomiting, fevers or chills. She has no other complaints at this time. [facility] Past Medical History Anxiety: Yes Cancer: Yes (COLON) Chemotherapy: Yes (finished december2016) COPD: Yes Endocrine: No Gastrointestinal Disorders: Yes (IBS) Neurologic: Yes (spinalstenosis) Thyroid Disease: No Past Surgical History Hysterectomy: Yes Tonsillectomy: Yes Other Surgery: Yes (LAST COLONOSCOPY 2015) Social History Alcohol Use: Yes (on occasion) Tobacco Use: Yes (1-2 ppd) Substance Use: No Allergies-Medications (Allergen,Severity, Reaction): Coded Allergies: No Known Allergies (Unverified Adverse Reaction, Unknown, 12/01/17) Reported Meds & Prescriptions Reported Meds & Active Scripts Active Clindamycin (Clindamycin HCl) 300 Mg Cap 300 Mg PO TID 10 Days Protonix (Pantoprazole Sodium) 20 Mg Tab 20 Mg PO DAILY [Silv Sulfadiazine-Lidocaine Cr] 60 APPLIC/60 GM Cr 0 Applic RECTAL UNSCH PRN Atrovent HFA 12.9 GM Inh (Ipratropium [place]) 17 Mcg/Actuation Aer 2 Puff INH Q6HR PRN Proair Hfa 8.5 GM Inh (Albuterol Sulfate) 90 Mcg/Act Aer 2 Puff INH Q4-6H PRN 108 mcg/actuation Hydrocodone-Acetaminophen 10-325 mg Tab 1 Tab PO Q4H PRN Zyrtec (Cetirizine HCl) 10 Mg Capsule 10 Mg PO DAILY Methocarbamol 500 Mg Tab 500 Mg PO BID Combivent Respimat Inh (Ipratropium-Albuterol Inh) 20-100 [place]/Act Aero 1 Puff INH QID Singulair (Montelukast Sodium) 4 Mg Chew 4 Mg CHEW HS Buspirone (Buspirone HCl) 7.5 Mg Tab 7.5 Mg PO BID Morphine ER (Morphine Sulfate) 15 Mg Tab 15 Mg PO BID Review of Systems Except as stated in HPI: all other systems reviewed are Neg Physical Exam Narrative GENERAL: Well-developed well-nourished female no acute distress SKIN: Warm and dry. HEAD: Atraumatic. Normocephalic. EYES: Pupils equal and round. No scleral icterus. No injection or drainage. ENT: No nasal bleeding or discharge. Mucous membranes pink and moist. NECK: Trachea midline. No JVD. CARDIOVASCULAR: Regular rate and rhythm. No murmur appreciated. RESPIRATORY: No accessory muscle use. Clear to auscultation. Breath sounds equal bilaterally. GASTROINTESTINAL: Abdomen soft, non-tender, nondistended. Hepatic and splenic margins not palpable. Examination of the rectum in the presence of a female nurse reveals chronic skin lesions in the perirectal region. So there is no rectal bleeding. MUSCULOSKELETAL: No obvious deformities. No clubbing. No cyanosis. No edema. NEUROLOGICAL: Awake and alert. No obvious cranial nerve deficits. Motor grossly within normal limits. Normal speech. PSYCHIATRIC: Appropriate mood and affect; insight and judgment normal. Data Data Last Documented VS Vital Signs Date Time Temp Pulse Resp B/P (MAP) Pulse Ox O2 Delivery O2 Flow Rate FiO2 12/05/17 19:36 98.1 100 16 138/65 (89) 100 Orders Orders Morphine Inj (Morphine Inj) (12/05/17 20:00) Ondansetron Inj (Zofran Inj) (12/05/17 20:00) Ed Discharge Order (12/05/17 20:20) MDM Medical Decision Making Medical Screen Exam Complete: Yes Emergency Medical Condition: Yes Medical Record Reviewed: Yes Differential Diagnosis Chronic rectal pain versus fistula versus anal fissure versus anal malignancy versus perirectal abscess Narrative Course 62-year-old female presents for evaluation of chronic rectal pain, exacerbated by running out of her morphine. She does have a prescription for morphine but has had issues with transportation at the pharmacy in order to get it filled. The immigration case manager spoke with the patient about how to arrange transportation through Medicaid. She is also providing the patient with bus passes to help facilitate transportation to the pharmacy to cloth picker her medication. She is agreeable with this plan. She will be given a dose of morphine and Zofran here. She will be discharged home. She understands to follow-up with her oncologist and her colorectal surgeon. She is stable for discharge. Diagnosis Primary Impression: Anal or rectal pain Referrals: Vijay Gore MD, Abdul J. MD Additional Instructions: Follow-up with your surgeon and your oncologist. Take your prescribed medication as needed. Return for any emergent medical conditions. Med/Other Pt SpecificInfo: No Change to Meds Disposition: 01 DISCHARGE HOME Condition: Stable Renzo Hawthorne Dec 05, 2017 19:58
[2017-12-05] MEDS ORDERED: ONDANSETRON HCL 4 MG/2 ML VIAL IV PUSH ONE (20:00)
[2017-12-05] MEDS ORDERED: MORPHINE SULFATE 2 MG/ML INJ IV PUSH ONE (20:00)
== END 2017-12-05 21:57 | disposition home or self-care (01) ==
LOC: NEPC 19:23
DX: K62.89 Other specified diseases of anus and rectum (principal); F41.9 Anxiety disorder, unspecified; J44.9 Chronic obstructive pulmonary disease, unspecified; F17.200 Nicotine dependence, unspecified, uncomplicated; Z79.899 Other long term (current) drug therapy; Z79.51 Long term (current) use of inhaled steroids; Z85.048 Personal history of other malignant neoplasm of rectum, rectosigmoid junction, and anus; Z87.19 Personal history of other diseases of the digestive system
CPT/HCPCS: 96374; 96375; 99284; J2270; J2405

== ENCOUNTER → 2017-12-14 | Outpatient (CLI) | payer MEDICAID ==
[~2017-12-14] MED LIST changes: -HYDR-3580 PO; +LIDO2GEL11 TOPICAL; -OMEP10CA PO
[2017-12-14 09:41] LABS: AUTOMATED NEUTROPHIL # 4.2 TH/MM3 (1.8-7.7); BASOPHIL % 0.4 % (0.0-2.0); EOSINOPHIL % 0.9 % (0.0-4.0); HEMATOCRIT 33.2 % (35.0-46.0); HEMOGLOBIN 11.2 GM/DL (11.6-15.3); LYMPH % 10.2 % (9.0-44.0); LYMPHOCYTE # 0.5 TH/MM3 (1.0-4.8); MEAN CELL VOLUME 117.7 FL (80.0-100.0); MEAN CORPUSCULAR HEMOGLOBIN 39.5 PG (27.0-34.0); MEAN CORPUSCULAR HGB CONC 33.6 % (32.0-36.0); MEAN PLATELET VOLUME 6.6 FL (7.0-11.0); MONOCYTE # 0.4 TH/MM3 (0-0.9); NEUT % 81.5 % (16.0-70.0); PLATELET COUNT 475 TH/MM3 (150-450); RED BLOOD COUNT 2.83 MIL/MM3 (4.00-5.30); RED CELL DISTRIBUTION WIDTH 15.4 % (11.6-17.2); WHITE BLOOD COUNT 5.2 TH/MM3 (4.0-11.0)
[2017-12-14 09:49] LABS: BILIRUBIN, URINE NEG (NEG); BLOOD, URINE SMALL (NEG); GLUCOSE,URINE NEG (NEG); HYALINE CAST, URINE 8 /lpf (RARE); KETONE, URINE NEG (NEG); MUCUS URINE FEW /lpf (OCC); NITRITE,URINE NEG (NEG); SQUAMOUS EPITHELIAL CELL URINE 1 /hpf (0-5); URINE COLOR YELLOW (YELLW/STRAW); URINE LEUKOCYTE ESTERASE MOD (NEG)
[2017-12-14 09:51] LABS: INTERNATIONAL NORMALIZED RATIO 1.1 RATIO; PROTHROMBIN TIME - PATIENT 10.8 SEC (9.8-11.6)
[2017-12-14 10:01] LABS: ALBUMIN 2.1 GM/DL (3.4-5.0); AST (GOT) 24 U/L (15-37); BICARBONATE 23.3 MEQ/L (21.0-32.0); BLOOD UREA NITROGEN 5 MG/DL (7-18); CALCIUM 7.7 MG/DL (8.5-10.1); CHLORIDE 110 MEQ/L (98-107); GLOMERULAR FILTRATION RATE 102 ML/MIN (>89); GLUCOSE,FASTING 127 MG/DL (74-99); SODIUM (NA) 142 MEQ/L (136-145)
[2017-12-14 10:02] LABS: ALT (GPT) 25 U/L (10-53)
[2017-12-14 10:04] LABS: ALKALINE PHOSPHATASE 78 U/L (45-117); TOTAL BILIRUBIN ADULT 0.4 MG/DL (0.2-1.0); TOTAL PROTEIN 6.2 GM/DL (6.4-8.2)
--- NOTE | 2017-12-14 10:53 | RADRPT ---
EXAM DATE/TIME: 12/14/2017 09:54 [place] COMPARISON: No previous studies available for comparison. INDICATIONS : Evaluate for pneumoina , pneumothorax or communicable disease. Pre op for colostomy. MEDICAL HISTORY : Chronic obstructive pulmonary disease. Carcinoma, rectal. IBS. Anxiety.Chemotherapy. Radiation therap y. SURGICAL HISTORY : Hysterectomy. Tonsillectomy. Colonoscopy. ENCOUNTER: Initial ACUITY: 1 day PAIN SCORE: 0/10 LOCATION: Bilateral chest FINDINGS: PA and lateral views of the chest demonstrate the lungs to be symmetrically aerated without evidence of mass, infiltrate or effusion. The lungs are hyperinflated bilaterally. The cardiomediastinal conto urs are unremarkable. Osseous structures are intact. CONCLUSION: Hyperinflation suggesting COPD. No acute infiltrate or effusion. Eusebio Shaw Jr., MD on December 14, 2017 at 10:50 Board Certified Radiologist. This report was verified electronically.
--- NOTE | 2017-12-14 18:18 | EKG ---
Date Performed: 12/14/2017 Time Performed: 09:07:08 PTAGE: 62 years EKG: Sinus rhythm ST DEVIATION AND MODERATE T-WAVE ABNORMALITY, CONSIDER ANTEROLATERAL ISCHEMIA ST DEVIATION AND MODER ATE T-WAVE ABNORMALITY, CONSIDER INFERIOR ISCHEMIA When copmpared to previous tracing, the anterior T wave Changes are new, consider ischemia. Clinical corrolation is suggested. ABNORMAL ECG PREVIOUS TRACING : 10/05/2017 03.38 DOCTOR: Crow Byers Interpretating Date/Time 12/14/2017 18:17:15
== END ==
LOC: CPRE 08:43
PROVIDERS: ATTEND Colon & Rectal Surgery
DX: Z01.810 Encounter for preprocedural cardiovascular examination (principal); Z01.811 Encounter for preprocedural respiratory examination; Z01.812 Encounter for preprocedural laboratory examination; Z01.818 Encounter for other preprocedural examination; Z85.048 Personal history of other malignant neoplasm of rectum, rectosigmoid junction, and anus; R94.31 Abnormal electrocardiogram [ECG] [EKG]
CPT/HCPCS: 36415; 71046; 80053; 81001; 85025; 85610; 85730; 93005

== ENCOUNTER 2017-12-20 12:07 | Inpatient (IN) | payer MEDICAID ==
[~2017-12-20] VITALS: Ht 175.3 cm; Wt 57.0 kg
[2017-12-20] VITALS (8 sets, daily range): BP systolic 91–130; BP diastolic 50–63; PULSE 62–75; RESP 18–20; TEMP 97.8–98.3; O2SAT 92–99
[~2017-12-20 12:07] MED LIST changes: -CLIN300C5 PO; +GLYCOPYRROLATE 1 MG/5 ML SYRINGE IV PUSH ONE; +LABETALOL HCL 100 MG/20 ML VIAL IV ONE; +LACTATED RINGER'S 1000 ML INJ 1,000 ML IV ONE; +LIDOCAINE HCL 1% PF 5 ML SYRINGE OTHER ONE; +NEOSTIGMINE 5 MG/5 ML SYRINGE IV PUSH ONE; +NS 500 ML (EXCEL BAG) INJ 500 ML IV ONE; +ONDANSETRON HCL 4 MG/2 ML VIAL IV ONE; +PROPOFOL 200 MG/20 ML AMP IV ONE; +ROCURONIUM INJ 50 MG/5 ML SYRINGE IV PUSH ONE; -Silv Sulfadiazine-Lidocaine Cr RECTAL
[2017-12-20] MEDS ORDERED: POVIDONE IODINE 5% (ANTISEPSIS KIT) 4 APPLICATIONS EACH NARE PRN (13:30)
[2017-12-20] MEDS ORDERED: METOPROLOL TARTRATE 25 MG TAB PO PRN (13:30)
[2017-12-20] MEDS ORDERED: LACTATED RINGER'S 1000 ML IV PRN (13:30)
[2017-12-20] MEDS ORDERED: SODIUM CHLORID 0.9% 500 ML IV PRN (13:30)
[2017-12-20] MEDS ORDERED: CHLORHEXIDINE GLUCONATE 2 % 1 PACK (2 CLOTHS) TOPICAL PRN (13:30)
[2017-12-20] MEDS ORDERED: ceFAZolin INJ 1,000 MG VIAL ONE (13:39)
[2017-12-20] MEDS ORDERED: metroNIDAZOLE 500 MG INJ 100 ML IV ONE (13:39)
[2017-12-20] MEDS: METRONIDAZOLE 500 MG/100 ML ISONTONIC SOLN IV SCH ×2 (13:40→13:59)
--- NOTE | 2017-12-20 13:41 | PD.HP.UP ---
H&P Update Note The Pre-Admit History and Physical Examination regarding the above named patient was reviewed (including, but not limited to, vital signs, heart, lungs, co-morbid conditions), and upon re-examination it is noted that: the patient's condition has not significantly changed since the last examination. Vijay Gore MD Dec 20, 2017 13:41
[2017-12-20] MEDS ORDERED: ceFAZolin 1,000 MG/NS 100 ML IV SCH ×2 (14:00)
[2017-12-20] MEDS ORDERED: DEXT 5%-NACL 0.9% 1000 ML INJ 1,000 ML IV SCH (14:00)
[2017-12-20] MEDS ORDERED: methylPREDNISolone SOD SUCC 125 MG/2 ML VIAL ONE (14:48)
[2017-12-20] MEDS ORDERED: Post-op Orders (for Pharmacy) XX ONE (16:00)
[2017-12-20] MEDS ORDERED: ALBUTEROL SULFATE 90 MCG/ACT HFA 8 GM INHALER INH PRN (16:00)
[2017-12-20] MEDS ORDERED: ONDANSETRON HCL 4 MG/2 ML VIAL IV PUSH PRN (16:00)
[2017-12-20] MEDS ORDERED: NALOXONE HCL 0.4 MG/ML AMP IV PUSH PRN (16:00)
[2017-12-20] MEDS ORDERED: POTASSIUM CHLOR 40 MEQ PREMIX 100 ML IV-CENTRAL PRN (16:00)
[2017-12-20] MEDS ORDERED: ACETAMINOPHEN/HYDROcodone 325 MG/5 MG TAB PO PRN ×2 (16:00)
[2017-12-20] MEDS ORDERED: ENALAPRILAT 1.25 MG/ML VIAL IV PUSH PRN (16:00)
[2017-12-20] MEDS ORDERED: POTASSIUM CHLOR 20 MEQ PREMIX 100 ML IV PRN (16:00)
[2017-12-20] MEDS ORDERED: ENALAPRILAT 2.5 MG/2 ML VIAL IV PUSH PRN (16:00)
[2017-12-20] MEDS ORDERED: BENZOCAINE 6 MG/MENTHOL 10 MG LOZENGE BUCCAL PRN (16:00)
[2017-12-20] MEDS ORDERED: ACETAMINOPHEN 325 MG TAB PO PRN (16:00)
[2017-12-20] MEDS ORDERED: RESP: ALBUTEROL 2.5 MG/3 ML NEB (PRN) ONE (16:01)
[2017-12-20] MEDS ORDERED: SUGAMMADEX SODIUM 200 MG/2 ML VIAL IV PUSH ONE (16:04)
[2017-12-20] MEDS ORDERED: *ONDANSETRON 4 MG VIAL PERIprocedural Use ONLY ONE (16:18)
[2017-12-20] MEDS: D5-NS + KCL 20 MEQ INJ 1,000 ML IV SCH (17:00)
[2017-12-20] MEDS ORDERED: MORPHINE SULFATE 4 MG/ML INJ ONE ×2 (17:06)
[2017-12-20] MEDS ORDERED: MIDAZOLAM HCL 2 MG/2 ML VIAL ONE (17:07)
[2017-12-20] MEDS ORDERED: PILL SPLITTER OTHER PRN (17:15)
[2017-12-20] MEDS ORDERED: RESP: IPRATROPIUM 0.5 MG/2.5 ML NEB NEB PRN (17:15)
[2017-12-20] MEDS: MORPHINE SULFATE 30 MG/30 ML PCA IV SCH (17:42)
[2017-12-20] MEDS: TIOTROPIUM BROMIDE 18 MCG INH INH SCH (18:00)
[2017-12-20] MEDS: ALBUTEROL SULFATE 90 MCG/ACT HFA 8 GM INHALER INH SCH ×2 (18:00→22:58)
[2017-12-20] MEDS ORDERED: DO NOT ADM ANY ANTICOAGULANT DRUGS PRN (19:00)
[2017-12-20] MEDS: KETOROLAC TROMETHAMINE 30 MG/ML (IVP) VIAL IVP PRN (19:46)
[2017-12-20] MEDS: METOCLOPRAMIDE HCL 10 MG/2 ML VIAL IVS SCH (20:00)
[2017-12-20] MEDS: PCA - TOTAL MG MORPHINE DELIVERED PER SHIFT SCH (21:11)
[2017-12-20] MEDS: busPIRone HCL 5 MG TAB PO SCH (21:12)
[2017-12-20] MEDS: MONTELUKAST SODIUM 4 MG CHEWABLE TAB CHEW SCH (21:12)
[2017-12-20] MEDS: METHOCARBAMOL 500 MG TAB PO SCH (21:12)
[2017-12-20] MEDS: MORPHINE SULFATE 15 MG CONTROLLED RELEASE TAB PO SCH (21:13)
[2017-12-20] MEDS: metroNIDAZOLE 500 MG INJ 100 ML IV SCH (21:13)
[2017-12-21] VITALS (21 sets, daily range): BP systolic 82–116; BP diastolic 50–63; PULSE 62–95; RESP 14–18; TEMP 98.2–98.6; O2SAT 93–100
[2017-12-21] MEDS: D5-NS + KCL 20 MEQ INJ 1,000 ML IV SCH ×4 (01:37→22:19)
[2017-12-21] MEDS: KETOROLAC TROMETHAMINE 30 MG/ML (IVP) VIAL IVP PRN ×2 (01:37→22:19)
[2017-12-21] MEDS: PCA - TOTAL MG MORPHINE DELIVERED PER SHIFT SCH ×3 (05:07→21:59)
[2017-12-21] MEDS: metroNIDAZOLE 500 MG INJ 100 ML IV SCH ×2 (05:07→13:49)
[2017-12-21 05:44] LABS: AUTOMATED NEUTROPHIL # 5.5 TH/MM3 (1.8-7.7); BASOPHIL % 0.7 % (0.0-2.0); EOSINOPHIL % 0.2 % (0.0-4.0); HEMATOCRIT 26.4 % (35.0-46.0); LYMPH % 8.1 % (9.0-44.0); LYMPHOCYTE # 0.5 TH/MM3 (1.0-4.8); MEAN CELL VOLUME 117.9 FL (80.0-100.0); MEAN CORPUSCULAR HEMOGLOBIN 40.1 PG (27.0-34.0); MEAN PLATELET VOLUME 6.8 FL (7.0-11.0); MONO % 4.9 % (0.0-8.0); MONOCYTE # 0.3 TH/MM3 (0-0.9); NEUT % 86.1 % (16.0-70.0); PLATELET COUNT 308 TH/MM3 (150-450); RED BLOOD COUNT 2.24 MIL/MM3 (4.00-5.30); RED CELL DISTRIBUTION WIDTH 16.5 % (11.6-17.2); WHITE BLOOD COUNT 6.5 TH/MM3 (4.0-11.0)
[2017-12-21 06:10] LABS: BICARBONATE 22.2 MEQ/L (21.0-32.0); CALCIUM 7.1 MG/DL (8.5-10.1); CREATININE 0.44 MG/DL (0.50-1.00)
[2017-12-21 06:25] LABS: CALCIUM-PROTEIN CORRECTED 8.3 MG/DL (8.5-10.1); TOTAL PROTEIN 4.9 GM/DL (6.4-8.2)
[2017-12-21] MEDS: TIOTROPIUM BROMIDE 18 MCG INH INH SCH (08:00)
[2017-12-21] MEDS: ALBUTEROL SULFATE 90 MCG/ACT HFA 8 GM INHALER INH SCH ×4 (09:00→20:46)
[2017-12-21] MEDS ORDERED: PANTOPRAZOLE SODIUM 40 MG VIAL IVP PRN (09:00)
[2017-12-21] MEDS: PANTOPRAZOLE SOD 40 MG DELAYED RELEASE TAB PO SCH (10:13)
[2017-12-21] MEDS: METHOCARBAMOL 500 MG TAB PO SCH ×2 (10:13→20:46)
[2017-12-21] MEDS: METOCLOPRAMIDE HCL 10 MG/2 ML VIAL IVS SCH ×2 (10:13→20:45)
[2017-12-21] MEDS: busPIRone HCL 5 MG TAB PO SCH ×2 (10:13→20:46)
[2017-12-21] MEDS: MORPHINE SULFATE 15 MG CONTROLLED RELEASE TAB PO SCH ×2 (10:14→20:46)
[2017-12-21] MEDS: MORPHINE SULFATE 30 MG/30 ML PCA IV SCH (10:38)
[2017-12-21] MEDS: LIDOCAINE 2% JELLY 30 ML TUBE TOPICAL SCH (12:46)
[2017-12-21] MEDS: CETIRIZINE HCL 10 MG TAB PO SCH (12:46)
--- NOTE | 2017-12-21 15:31 | PD.WCN.NOT ---
Wound Consult Description: New Ostomy Teaching per Dr Gore Communicated with: Patient WALDEMAR Hussein Recommendation: Ensure stoma has circulation as evidenced by the dark pink/red color presently visualized. Read information left at bedside for reinforcement of teaching. Open pouch at top or bottom to release air and/or effluent. Ensure the pouching system is closed to prevent leaking. Write down any questions in the back of the booklet for next teaching session Additional Information: Patient seen on [address] [place] [address] for ostomy assessment and [facility] Ost[facility] Type: Colostomy Surgeon: Vijay Gore MD Date of Surgery: Dec 20, 2017 Complete: Education materials Educated patient on: Stoma appearance Appliances available Output Additional information Patient seen on [address] with PLACIDO Tony. Patient was laying in bed upon arrival to room. Stoma was visualized on the left lower abdomen with pouching system intact and noted without leaks. Colostomy is dark pink/red, moist, round , moderately protruding, edematous, not functioning at this time. Roselyn Fonseca ELAINA Dec 21, 2017 15:31
--- NOTE | 2017-12-21 20:15 | HHI.PR ---
Subjective Remarks C/R Surg POD #1 afebrile, VSS UO good Objective - Vital Signs Date Time Temp Pulse Resp B/P (MAP) Pulse Ox O2 Delivery O2 Flow Rate FiO2 12/21/17 18:00 95 12/21/17 15:00 98.6 16 116/63 (80) 93 12/21/17 15:00 Room Air 12/21/17 08:00 1.00 Result Diagram: 12/21/17 0521 12/21/17 0521 Objective Remarks PE alert Abd - soft, stoma pink, induration lower abd A/P Assessment and Plan Imp: stable post - op OOB decr IVF start PO Vijay Gore MD Dec 21, 2017 20:15
[2017-12-21] MEDS: MONTELUKAST SODIUM 4 MG CHEWABLE TAB CHEW SCH (20:46)
[2017-12-21] MEDS ORDERED: ALVIMOPAN 12 MG CAPSULE PO SCH (21:00)
[2017-12-21] MEDS: SILVER SULFADIAZINE/LIDOCAINE CREAM 60 GM JAR RECTAL SCH (22:19)
[2017-12-22] VITALS: BP 120/70; PULSE 90; RESP 18; TEMP 98.1; O2SAT 92
[2017-12-22 04:00] VITALS: BP 121/61; PULSE 102; RESP 20; TEMP 98.5; O2SAT 95
[2017-12-22] MEDS: PCA - TOTAL MG MORPHINE DELIVERED PER SHIFT SCH (04:20)
[2017-12-22] MEDS: MORPHINE SULFATE 30 MG/30 ML PCA IV SCH (04:21)
[2017-12-22 06:43] LABS: AUTOMATED NEUTROPHIL # 4.8 TH/MM3 (1.8-7.7); BASOPHIL % 0.4 % (0.0-2.0); EOSINOPHIL % 0.7 % (0.0-4.0); HEMATOCRIT 28.9 % (35.0-46.0); HEMOGLOBIN 9.5 GM/DL (11.6-15.3); LYMPH % 7.2 % (9.0-44.0); LYMPHOCYTE # 0.4 TH/MM3 (1.0-4.8); MEAN CELL VOLUME 120.1 FL (80.0-100.0); MEAN CORPUSCULAR HEMOGLOBIN 39.6 PG (27.0-34.0); MEAN PLATELET VOLUME 6.5 FL (7.0-11.0); MONO % 6.2 % (0.0-8.0); MONOCYTE # 0.4 TH/MM3 (0-0.9); NEUT % 85.5 % (16.0-70.0); PLATELET COUNT 359 TH/MM3 (150-450); RED CELL DISTRIBUTION WIDTH 16.8 % (11.6-17.2); WHITE BLOOD COUNT 5.6 TH/MM3 (4.0-11.0)
[2017-12-22 07:09] LABS: BICARBONATE 24.6 MEQ/L (21.0-32.0); CALCIUM 7.1 MG/DL (8.5-10.1); CREATININE 0.34 MG/DL (0.50-1.00)
[2017-12-22 07:33] LABS: CALCIUM-PROTEIN CORRECTED 7.7 MG/DL (8.5-10.1); TOTAL PROTEIN 5.9 GM/DL (6.4-8.2)
[2017-12-22 08:00] VITALS: BP 125/64; PULSE 93; RESP 17; TEMP 96.8; O2SAT 94
--- NOTE | 2017-12-22 08:26 | MP ---
cc: CROW NOEL M.D. DATE OF SURGERY 12/20/2017 PREOPERATIVE DIAGNOSIS History of anal cancer, severe radiation proctitis and anusitis. PROCEDURE 1. Laparoscopic-assisted loop colostomy 2. Lysis of adhesions. POSTOPERATIVE DIAGNOSIS History of anal cancer, severe radiation proctitis and anusitis. SURGEON Dr. Noel PROCEDURE The patient was placed in the supine position. After adequate general anesthesia, her legs were placed in the [place] stirrups and supported appropriately. Rectal exam confirmed quite a bit of induration and radiation change, but no sign of any obvious gross tumor. The abdomen and perineum were then prepped with Betadine solution and draped in the usual sterile fashion. Initially, a supraumbilical incision was made and a Veress needle inserted establishing pneumoperitoneum easily. A 5 mm trocar was then placed under direct vision. A second 5 mm trocar was placed in the suprapubic position and the midline. Laparoscopy showed quite a bit of omental adhesions along the midline and these were taken down with sharp and blunt dissection. Exploration did reveal what appeared to be quite a bit of radiation changes in the small bowel in the pelvis. No sign of any obstruction was noted. No peritoneal disease was seen. The sigmoid colon was identified and stuck down to the left pelvic sidewall. With a third trocar placed in the right lower abdomen, these adhesions were taken down freeing up the sigmoid colon and left colon mobilizing the sigmoid medially. The left ureter was identified and carefully preserved. After full mobilization, there appeared to be enough length to place a loop colostomy. Therefore a circular stab wound was created in the left midabdomen, taken down through the subcutaneous tissues opening up the rectus fascia and splitting the rectus muscles entering the posterior sheath and peritoneum under direct vision releasing the pneumoperitoneum. The chosen loop of sigmoid colon was brought up through the stab wound without tension and with good blood supply. Avascular plane was created in the mesentery and a colostomy bar placed. The trocar sites were then closed with interrupted 3-0 Vicryl sutures and Steri-Strips. Colostomy was then matured by creating a transverse colotomy and maturing both proximal and distal limbs with interrupted chromic catgut sutures around the circumference. At completion, the stoma did appear to be viable and was patent through the fascial level. Sterile colostomy appliance fitted over the new stoma. The patient tolerated the procedure quite well and was brought to the recovery room in stable condition. Sponge and needle counts were correct at the end of the procedure. MD DARLENE Burrows/REINA /10:44 PM /8:05 AM
[2017-12-22] MEDS: PANTOPRAZOLE SOD 40 MG DELAYED RELEASE TAB PO SCH (09:48)
[2017-12-22] MEDS: METHOCARBAMOL 500 MG TAB PO SCH ×2 (09:48→20:45)
[2017-12-22] MEDS: METOCLOPRAMIDE HCL 10 MG/2 ML VIAL IVS SCH (09:49)
[2017-12-22] MEDS: CETIRIZINE HCL 10 MG TAB PO SCH (09:49)
[2017-12-22] MEDS: MORPHINE SULFATE 15 MG CONTROLLED RELEASE TAB PO SCH ×2 (09:49→20:45)
[2017-12-22] MEDS ORDERED: METOCLOPRAMIDE HCL 10 MG/2 ML VIAL IVS PRN (10:00)
--- NOTE | 2017-12-22 10:00 | HHI.FF ---
Face to Face Verification Diagnosis: (1) Chronic pain Physical Therapy Order: Evaluate and Treat, Improve ambulation, Strength and gait training Home Health Nursing Order: Medical education Signs/symptoms of disease process Medication education-adverse effect Wound care and dressing changes I have seen patient Abi Mccarty on 12/22/17. My clinical findings support the need for the requested home health care services because: Deconditioned w/ increased weakness Med compliance is questionable Need for psychosocial assistance Impaired cognition/judgement High risk of falls I certify that my clinical findings support that this patient is homebound because: Post-op weakness Need for psychosocial assistance Unable to use public transportation Vijay Gore MD Dec 22, 2017 10:00
[2017-12-22] MEDS: KETOROLAC TROMETHAMINE 30 MG/ML (IVP) VIAL IVP PRN ×3 (10:09→23:44)
[2017-12-22 12:00] VITALS: BP 137/71; PULSE 102; RESP 16; TEMP 96.6; O2SAT 93
[2017-12-22] MEDS: D5-NS + KCL 20 MEQ INJ 1,000 ML IV SCH (12:33)
[2017-12-22] MEDS: ALBUTEROL SULFATE 90 MCG/ACT HFA 8 GM INHALER INH SCH ×4 (13:00→20:48)
[2017-12-22] MEDS: busPIRone HCL 5 MG TAB PO SCH ×2 (14:47→20:46)
[2017-12-22] MEDS: SILVER SULFADIAZINE/LIDOCAINE CREAM 60 GM JAR RECTAL SCH ×2 (14:48→20:48)
[2017-12-22] MEDS: LIDOCAINE 2% JELLY 30 ML TUBE TOPICAL SCH (14:48)
[2017-12-22] MEDS: TIOTROPIUM BROMIDE 18 MCG INH INH SCH (14:49)
[2017-12-22 16:00] VITALS: BP 128/69; PULSE 88; RESP 18; TEMP 96.5; O2SAT 96
--- NOTE | 2017-12-22 19:52 | HHI.PR ---
Subjective Remarks C/R Surg POD #2 afebrile, VSS UO good stoma functioning Objective - Vital Signs Date Time Temp Pulse Resp B/P (MAP) Pulse Ox O2 Delivery O2 Flow Rate FiO2 12/22/17 16:00 96.5 88 18 128/69 (88) 96 12/21/17 20:00 Room Air 12/21/17 08:00 1.00 Result Diagram: 12/22/17 0457 12/22/17 0457 Objective Remarks PE alert Abd - soft, stoma pink, induration lower abd - chronic Extr - less redness A/P Assessment and Plan Imp: OOB decr IVF start PO, adv dc plans Vijay Gore MD Dec 22, 2017 19:52
[2017-12-22 20:00] VITALS: BP 135/65; PULSE 89; RESP 18; TEMP 98.2; O2SAT 96
[2017-12-22] MEDS: MONTELUKAST SODIUM 4 MG CHEWABLE TAB CHEW SCH (20:46)
[2017-12-23] VITALS: BP 155/82; PULSE 86; RESP 18; TEMP 96.9; O2SAT 94
[2017-12-23 04:00] VITALS: BP 144/81; PULSE 89; RESP 19; TEMP 97.1; O2SAT 96
[2017-12-23] MEDS ORDERED: Silv Sulfadiazine-Lidocaine Cr RECTAL (07:40)
--- NOTE | 2017-12-23 07:50 | HHI.PR ---
Subjective Remarks C/R Surg POD #3 afebrile, VSS UO good stoma functioning Objective - Vital Signs Date Time Temp Pulse Resp B/P (MAP) Pulse Ox O2 Delivery O2 Flow Rate FiO2 12/23/17 04:00 97.1 89 19 144/81 (102) 96 12/21/17 20:00 Room Air 12/21/17 08:00 1.00 Result Diagram: 12/22/17 0457 12/22/17 0457 Objective Remarks PE alert Abd - soft, stoma pink, induration lower abd - chronic Extr - less redness, less edema A/P Assessment and Plan Imp: OOB decr IVF start PO, adv dc plans Vijay Gore MD Dec 23, 2017 07:50
[2017-12-23 08:00] VITALS: BP 150/79; PULSE 79; RESP 17; TEMP 96.9; O2SAT 97
[2017-12-23] MEDS: TIOTROPIUM BROMIDE 18 MCG INH INH SCH (09:00)
[2017-12-23] MEDS: PANTOPRAZOLE SOD 40 MG DELAYED RELEASE TAB PO SCH (10:25)
[2017-12-23] MEDS: METHOCARBAMOL 500 MG TAB PO SCH (10:25)
[2017-12-23] MEDS: busPIRone HCL 5 MG TAB PO SCH (10:25)
[2017-12-23] MEDS: CETIRIZINE HCL 10 MG TAB PO SCH (10:26)
[2017-12-23] MEDS: MORPHINE SULFATE 15 MG CONTROLLED RELEASE TAB PO SCH (10:26)
[2017-12-23] MEDS: ALBUTEROL SULFATE 90 MCG/ACT HFA 8 GM INHALER INH SCH (10:27)
[2017-12-23] MEDS: SILVER SULFADIAZINE/LIDOCAINE CREAM 60 GM JAR RECTAL SCH (10:28)
[2017-12-23] MEDS: LIDOCAINE 2% JELLY 30 ML TUBE TOPICAL SCH (10:28)
[2017-12-23 12:00] VITALS: BP 137/66; PULSE 92; RESP 16; TEMP 97.4; O2SAT 94
--- NOTE | 2017-12-23 14:50 | PD.WCN.NOT ---
Wound Consult Description: New Ostomy Teaching per Dr Gore Communicated with: Patient Paula HydeBARBARA Recommendation: Ensure stoma has circulation as evidenced by the dark pink/red color presently visualized. Open pouch at top or bottom to release air and/or effluent. Ensure the pouching system is closed to prevent leaking. Empty pouch when 1/3-1/2 full. Change appliance every 5-7 days and PRN for leaks. Cleanse around stoma with water only and pat dry. Use cut to fit appliance (1 provided) until harshil is removed in 7-10 days post op. Use 2 3/4" oval appliances first (5 given). Stoma will shrink in size over the next 6-8 weeks in which the 2 1/4" appliances (3 provided) can be used. Additional Information: Patient seen on [place] for ostomy assessment, teaching, and 1st appliance change with assistance from patient Ostomy Type: Colostomy (Loop) Surgeon: Vijay Gore MD Date of Surgery: Dec 20, 2017 Complete: Starter kit (Consent obtained. Kit to be sent out on 12/24/17 via 2 day air to arrive Wednesday12/27/17.), Education materials, Rx (Left on chart), Other (Appliance removed and replaced today with patient assisting) Educated patient on: Empty pouch when 1/3-1/2 full of effluent (stool) Change entire appliance every 5-7 days and PRN for leaks Cleanse around stoma with water only and pat dry Use cut to fit appliance with harshil in place Use moldable 2 3/4" appliance once harshil is removed When stoma shrinks in size the moldable 2 1/4" appliance can be used When to contact physician (regarding output and color of stoma) Obtaining appliances via mail only Appliances available in 1 and 2 piece, transparent or opaque, open and closed ended Calling [facility] for trouble shooting problems with pouching systems Additional information Patient seen on [place] for ostomy teaching, assessment, and first appliance change with patient assistance. Stoma visualized on left lower abdomen is measuring 1 1/2" by 1 3/4" oval, red, moist, moderately protruding, edematous, lumen noted in center with remnants of soft brown effluent. Mucocutaneous junction is noted with circumferential sutures otherwise unremarkable. Peristomal skin is noted with steristrips. Peristomal skin was cleansed with water and pat dry. A new wafer was cut to fit stoma and placed with assistance from patient. Pouch was closed by patient and secured to wafer by poem writer with patient able to visualize. Patient had questions that were answered at this time. Patient was given a cut to fit 4" appliance to take home with her to use with the harshil that is in place underneath loop colostomy. Patient was given 5 appliances to use once the harshil is removed in moldable size 2 3/4" oval. Once stoma shrinks over the next few weeks she may use 2 1/4" moldable appliances provided (3) until she is able to obtain her own appliances. Roselyn Fonseca [facility] Dec 23, 2017 14:50
== END 2017-12-23 16:45 | disposition home health service (06) | DRG 331 ==
LOC: HSDI 12:07 → HCPC 18:00 → N07A 12-21 23:15
PROVIDERS: ADMIT Colon & Rectal Surgery; ATTEND Colon & Rectal Surgery
PROC: 0D1N0Z4 Bypass Sigmoid Colon to Cutaneous, Open Approach (ICD-10-PCS; principal; 2017-12-20 14:13)
DX: K62.7 Radiation proctitis (principal); J44.9 Chronic obstructive pulmonary disease, unspecified; Z85.048 Personal history of other malignant neoplasm of rectum, rectosigmoid junction, and anus; Y84.2 Radiological procedure and radiotherapy as the cause of abnormal reaction of the patient, or of later complication, without mention of misadventure at the time of the procedure; F17.210 Nicotine dependence, cigarettes, uncomplicated
CPT/HCPCS: 80048; 84155; 85025; 86850; 86900; 86901; 94150; J0690; J1885; J2250; J2270; J2405; J2710; J2765; J2930; J3010; J3480; J7040; J7120; J7613

== ENCOUNTER 2017-12-31 02:33 | Inpatient (IN) | payer MEDICAID ==
[2017-12-31] VITALS (13 sets, daily range): BP systolic 101–171; BP diastolic 52–90; PULSE 91–107; RESP 12–25; TEMP 98.1–98.7; O2SAT 95–100
[~2017-12-31] VITALS: Ht 162.6 cm; Wt 48.8 kg
[~2017-12-31 02:33] MED LIST changes: -GLYCOPYRROLATE 1 MG/5 ML SYRINGE IV PUSH ONE; -HYDR-3583 PO; -LABETALOL HCL 100 MG/20 ML VIAL IV ONE; -LACTATED RINGER'S 1000 ML INJ 1,000 ML IV ONE; -LIDOCAINE HCL 1% PF 5 ML SYRINGE OTHER ONE; -NEOSTIGMINE 5 MG/5 ML SYRINGE IV PUSH ONE; -NS 500 ML (EXCEL BAG) INJ 500 ML IV ONE; -ONDANSETRON HCL 4 MG/2 ML VIAL IV ONE; -PROPOFOL 200 MG/20 ML AMP IV ONE; -ROCURONIUM INJ 50 MG/5 ML SYRINGE IV PUSH ONE; +Silv Sulfadiazine-Lidocaine Cr RECTAL
[2017-12-31] MEDS ORDERED: SODIUM CHLOR 0.9% 1000 ML INJ 1,000 ML IV SCH (02:51)
[2017-12-31] MEDS ORDERED: PERC5TAB12 PO (02:59)
[2017-12-31] MEDS ORDERED: ONDANSETRON HCL 4 MG/2 ML VIAL IV PUSH ONE ×2 (03:00→03:45)
[2017-12-31] MEDS ORDERED: SODIUM CHLORIDE 0.9% FLUSH 10 ML FLUSH IV FLUSH PRN ×2 (03:00→07:30)
[2017-12-31] MEDS ORDERED: MORPHINE SULFATE 2 MG/ML INJ IV PUSH ONE (03:00)
--- NOTE | 2017-12-31 03:08 | PD ---
HPI Chief Complaint: Abdominal Pain Time Seen by Provider: 02:47 Travel History International Travel<30 days: No Contact w/Intl Traveler<30days: No Traveled to known affect area: No History of Present Illness HPI 62-year-old female with history of anal cancer, severe radiation proctitis and any situs, status post labral scopic assisted loop colostomy and lysis of adhesions by Dr. Gore on 12/20/17, here for evaluation of abdominal pain and noticing bowel sticking through her colostomy site. She states that around 11: 00 PM she urinated, however strained a little bit more than usual and noticed a small amount of bowel bulging through the site. She then woke up from sleep suddenly with severe pain, nausea, and vomiting. She was transported here by ambulance. Pain is severe, constant. PFSH Past Medical History Asthma: Yes Anxiety: Yes Depression: No Cancer: Yes (COLON, ANAL ) Cardiovascular Problems: No Chemotherapy: Yes (2016) COPD: Yes Diabetes: No Diminished Hearing: No Endocrine: No Gastrointestinal Disorders: Yes (IBS,REFLUX, INCONTINENCE, ANAL FISSURES, HEMMORHOIDS) Genitourinary: No Hepatitis: No Hiatal Hernia: No Immune Disorder: No Musculoskeletal: Yes Psychiatric: Yes Reproductive: No Respiratory: Yes Radiation Therapy: Yes (2016) Thyroid Disease: No ?: Not Past Surgical History Abdominal Surgery: Yes (lap colostomy dec 2017) AICD: No Body Medical Devices: BREAST IMPLANTS Cardiac Surgery: No Ear Surgery: No Endocrine Surgery: No Eye Surgery: No Genitourinary Surgery: No Gynecologic Surgery: Yes (HYSTERECTOMY) Hysterectomy: Yes Joint Replacement: No Oral Surgery: Yes (tonsillectomy) Pacemaker: No Thoracic Surgery: No Tonsillectomy: Yes Other Surgery: Yes (COLONOSCOPY 2015) Social History Alcohol Use: Yes (RARELY) Tobacco Use: Yes (1/2ppd) Substance Use: No Allergies-Medications (Allergen,Severity, Reaction): Coded Allergies: No Known Allergies (Unverified Adverse Reaction, Unknown, 12/31/17) Reported Meds & Prescriptions Reported Meds & Active Scripts Active [Silv Sulfadiazine-Lidocaine Cr] 60 APPLIC/60 GM Cr 1 Applic RECTAL BID Protonix (Pantoprazole Sodium) 20 Mg Tab 20 Mg PO DAILY Atrovent HFA 12.9 GM Inh (Ipratropium [place]) 17 Mcg/Actuation Aer 2 Puff INH Q6HR PRN Proair Hfa 8.5 GM Inh (Albuterol Sulfate) 90 Mcg/Act Aer 2 Puff INH Q4-6H PRN 108 mcg/actuation Zyrtec (Cetirizine HCl) 10 Mg Capsule 10 Mg PO DAILY Methocarbamol 500 Mg Tab 500 Mg PO BID Buspirone (Buspirone HCl) 7.5 Mg Tab 7.5 Mg PO BID Reported Percocet (Oxycodone-Acetaminophen) 5-325 mg Tab 1 Tab PO Q4H PRN Lidocaine Topical (Lidocaine HCl) 2 % Jel 1 Applic TOPICAL DAILY Review of Systems Except as stated in HPI: all other systems reviewed are Neg Physical Exam Narrative GENERAL: Well-developed, cachectic, awake, retching into an emesis bag SKIN: Focused skin assessment warm/dry. HEAD: Atraumatic. Normocephalic. EYES: Pupils equal and round. No scleral icterus. No injection or drainage. ENT: No nasal bleeding or discharge. Mucous membranes pink and moist. NECK: Trachea midline. No JVD. CARDIOVASCULAR: Regular rate and rhythm. RESPIRATORY: No accessory muscle use. Clear to auscultation. Breath sounds equal bilaterally. GASTROINTESTINAL: Abdomen soft, mildly distended with moderate diffuse tenderness with colostomy site in the left upper quadrant with a large segment of bowel protruding through the site. The bowel is purple in appearance and firm and I'm unable to reduce it. There is bloody discharge in the colostomy bag. MUSCULOSKELETAL: No obvious deformities. No clubbing. No cyanosis. No edema. NEUROLOGICAL: Awake and alert. No obvious cranial nerve deficits. Motor grossly within normal limits. Normal speech. PSYCHIATRIC: Appropriate mood and affect; insight and judgment normal. Data Data Last Documented VS Vital Signs Date Time Temp Pulse Resp B/P (MAP) Pulse Ox O2 Delivery O2 Flow Rate FiO2 12/31/17 03:41 92 19 171/77 (108) 100 Room Air 12/31/17 02:44 98.6 Orders Orders Complete Blood Count With Diff (12/31/17 02:51) Comprehensive Metabolic Panel (12/31/17 02:51) Lactic Acid (12/31/17 02:51) Prothrombin Time / Inr (Pt) (12/31/17 02:51) Act Partial Throm Time (Ptt) (12/31/17 02:51) Iv Access Insert/Monitor (12/31/17 02:51) Ecg Monitoring (12/31/17 02:51) Oximetry (12/31/17 02:51) Sodium Chlor 0.9% 1000 Ml Inj (Ns 1000 M (12/31/17 02:51) Sodium Chloride 0.9% Flush (Ns Flush) (12/31/17 03:00) Morphine Inj (Morphine Inj) (12/31/17 03:00) Ondansetron Inj (Zofran Inj) (12/31/17 03:00) Hydromorphone Pf Inj (Dilaudid Pf Inj) (12/31/17 03:45) Ondansetron Inj (Zofran Inj) (12/31/17 03:45) Admit Order (Ed Use Only) (12/31/17 03:48) Labs Laboratory Tests Test 12/31/17 02:55 White Blood Count 7.5 TH/MM3 Red Blood Count 2.79 MIL/MM3 Hemoglobin 11.4 GM/DL Hematocrit 31.0 % Mean Corpuscular Volume 111.3 FL Mean Corpuscular Hemoglobin 40.9 PG Mean Corpuscular Hemoglobin Concent 36.7 % Red Cell Distribution Width 16.5 % Platelet Count 291 TH/MM3 Mean Platelet Volume 7.1 FL Neutrophils (%) (Auto) 92.6 % Lymphocytes (%) (Auto) 4.3 % Monocytes (%) (Auto) 0.9 % Eosinophils (%) (Auto) 0.8 % Basophils (%) (Auto) 1.4 % Neutrophils # (Auto) 6.9 TH/MM3 Lymphocytes # (Auto) 0.3 TH/MM3 Monocytes # (Auto) 0.1 TH/MM3 Eosinophils # (Auto) 0.1 TH/MM3 Basophils # (Auto) 0.1 TH/MM3 CBC Comment AUTO DIFF Differential Comment AUTO DIFF CONFIRMED Platelet Estimate NORMAL Platelet Morphology Comment NORMAL Prothrombin Time 16.1 SEC Prothromb Time International Ratio 1.6 RATIO Activated Partial Thromboplast Time 28.2 SEC Blood Urea Nitrogen 2 MG/DL Creatinine 0.45 MG/DL Random Glucose 77 MG/DL Albumin 1.7 GM/DL Calcium Level 7.6 MG/DL Alanine Aminotransferase (ALT/SGPT) 853 U/L Sodium Level 142 MEQ/L Potassium Level 3.4 MEQ/L Chloride Level 108 MEQ/L Carbon Dioxide Level 25.7 MEQ/L Anion Gap 8 MEQ/L Estimat Glomerular Filtration Rate 142 ML/MIN Lactic Acid Level 2.0 mmol/L MDM Medical Decision Making Medical Screen Exam Complete: Yes Emergency Medical Condition: Yes Differential Diagnosis Parastomal hernia, bowel evisceration, bowel strangulation/incarceration Narrative Course 3:00 AM: I discussed the case with colorectal surgeon Dr. Ibrahim who is partners with Dr. Gore. He is on his way to the emergency department to evaluate the patient 3:30 AM: Dr. Flores is at the patient's bedside. Colorectal surgeon Dr. Flores attempted to reduce the small bowel, however was unable to do so at the bedside. He will take the patient to the OR. Diagnosis Primary Impression: Evisceration of bowel Admitting Information Admitting Physician Requests: Admit Jacoby Stoll MD Dec 31, 2017 03:08
[2017-12-31 03:09] LABS: AUTOMATED NEUTROPHIL # 6.9 TH/MM3 (1.8-7.7); BASOPHIL # 0.1 TH/MM3 (0-0.2); BASOPHIL % 1.4 % (0.0-2.0); EOSINOPHIL # 0.1 TH/MM3 (0-0.4); EOSINOPHIL % 0.8 % (0.0-4.0); HEMOGLOBIN 11.4 GM/DL (11.6-15.3); LYMPH % 4.3 % (9.0-44.0); LYMPHOCYTE # 0.3 TH/MM3 (1.0-4.8); MEAN CELL VOLUME 111.3 FL (80.0-100.0); MEAN CORPUSCULAR HEMOGLOBIN 40.9 PG (27.0-34.0); MEAN PLATELET VOLUME 7.1 FL (7.0-11.0); MONO % 0.9 % (0.0-8.0); MONOCYTE # 0.1 TH/MM3 (0-0.9); NEUT % 92.6 % (16.0-70.0); PLATELET COUNT 291 TH/MM3 (150-450); RED BLOOD COUNT 2.79 MIL/MM3 (4.00-5.30); RED CELL DISTRIBUTION WIDTH 16.5 % (11.6-17.2); WHITE BLOOD COUNT 7.5 TH/MM3 (4.0-11.0)
[2017-12-31 03:11] LABS: MEAN CORPUSCULAR HGB CONC 36.7 % (32.0-36.0)
[2017-12-31 03:19] LABS: INTERNATIONAL NORMALIZED RATIO 1.6 RATIO; PROTHROMBIN TIME - PATIENT 16.1 SEC (9.8-11.6)
[2017-12-31 03:40] LABS: ALBUMIN 1.7 GM/DL (3.4-5.0); ALT (GPT) 853 U/L (10-53); BICARBONATE 25.7 MEQ/L (21.0-32.0); BLOOD UREA NITROGEN 2 MG/DL (7-18); CALCIUM 7.6 MG/DL (8.5-10.1); CHLORIDE 108 MEQ/L (98-107); CREATININE 0.45 MG/DL (0.50-1.00); GLOMERULAR FILTRATION RATE 142 ML/MIN (>89); GLUCOSE,RANDOM 77 MG/DL (74-106); SODIUM (NA) 142 MEQ/L (136-145)
[2017-12-31] MEDS ORDERED: HYDROmorphone HCL PF 2 MG/ML VIAL IV PUSH ONE (03:45)
[2017-12-31 03:55] LABS: ALKALINE PHOSPHATASE 160 U/L (45-117); AST (GOT) 4339 U/L (15-37); TOTAL BILIRUBIN ADULT 0.4 MG/DL (0.2-1.0)
[2017-12-31 04:39] LABS: TOTAL PROTEIN 5.6 GM/DL (6.4-8.2)
[2017-12-31] MEDS ORDERED: metroNIDAZOLE 500 MG INJ 100 ML IV ONE (05:34)
[2017-12-31] MEDS ORDERED: SUGAMMADEX SODIUM 200 MG/2 ML VIAL IV PUSH ONE (06:44)
[2017-12-31] MEDS ORDERED: *ONDANSETRON 4 MG VIAL PERIprocedural Use ONLY ONE (07:08)
[2017-12-31] MEDS ORDERED: *morphine SULFATE 4 MG/ML PERIprocedure ONLY ONE ×2 (07:08→07:18)
[2017-12-31] MEDS ORDERED: DO NOT ADM ANY ANTICOAGULANT DRUGS PRN (07:15)
--- NOTE | 2017-12-31 07:23 | MH ---
cc: Julio Cesar Ibrahim MD DATE OF ADMISSION: 12/31/2017 CHIEF COMPLAINT: Small bowel prolapse from previous colostomy stoma site. HISTORY OF PRESENT ILLNESS: This patient presented to the Emergency Room this morning with prolapse of her small bowel from her newly created loop colostomy site. The colostomy was done approximately [address] Gore, on 12/20/2017. Colostomy was done for severe anal pain secondary to treatment for anal carcinoma consisting of radiation therapy and chemotherapy. Colostomy was done. She was discharged from the hospital several days after her colostomy was created and has been followed by home health care. There is a colostomy bar present that has not been removed. PAST MEDICAL HISTORY, FAMILY HISTORY, SOCIAL HISTORY, REVIEW OF SYSTEMS: Negative except for her anal cancer and severe chronic obstructive pulmonary disease. PHYSICAL EXAMINATION: GENERAL: Well-developed, thin female in acute distress with abdominal discomfort secondary to the small bowel prolapse. SKIN: Warm and dry. HEENT: Extraocular muscles intact. NECK: Supple. CHEST: Clear. S1, S2 heard. No murmurs or gallops. ABDOMEN: Flat, soft, essentially nontender except for this prolapsing small bowel, probably 8-12 inches superior to her loop sigmoid colostomy. The colostomy bar is still intact, and I went ahead and removed that and did a visual exam of her colostomy, which is quite ischemic. Most of the small bowel is normal in appearance, although a loop of it does appear edematous, ischemic, deeply hyperemic, with superficial ulceration. I was able to reduce the normal appearing portion of the small bowel, but this probably 4 or 5 inch segment of severely edematous ischemic small bowel, I was unable to reduce. RECTAL: Not done. EXTREMITIES: Range of motion within normal limits. NEUROLOGIC: Grossly normal. IMPRESSION: Small bowel prolapse from her sigmoid loop colostomy wound. PLAN: This is going to require laparotomy and probable revision of the colostomy since it appears extremely ischemic, as well as possible small bowel resection. It seems as if this has been prolapsed for 4-5 hours according to the patient. Julio Cesar Ibrahim MD JTT/DL , 04:03 AM , 07:23 AM
[2017-12-31] MEDS ORDERED: ACETAMINOPHEN/HYDROcodone 325 MG/5 MG TAB PO PRN (07:30)
[2017-12-31] MEDS ORDERED: POTASSIUM CHLOR 40 MEQ PREMIX 100 ML IV PRN (07:30)
[2017-12-31] MEDS ORDERED: POTASSIUM CHLOR 20 MEQ PREMIX 100 ML IV PRN (07:30)
[2017-12-31] MEDS ORDERED: BENZOCAINE 6 MG/MENTHOL 10 MG LOZENGE BUCCAL PRN (07:30)
[2017-12-31] MEDS ORDERED: METOCLOPRAMIDE HCL 10 MG/2 ML VIAL ONE (07:38)
[2017-12-31] MEDS ORDERED: KETOROLAC TROMETHAMINE 30 MG/ML (IVP) VIAL IVP PRN (07:45)
[2017-12-31] MEDS ORDERED: ENALAPRILAT 1.25 MG/ML VIAL IV PUSH PRN (07:45)
[2017-12-31] MEDS ORDERED: NALOXONE HCL 0.4 MG/ML AMP IV PUSH PRN (07:45)
[2017-12-31 07:59] LABS: AUTOMATED NEUTROPHIL # 4.4 TH/MM3 (1.8-7.7); BASOPHIL % 0.2 % (0.0-2.0); EOSINOPHIL % 0.2 % (0.0-4.0); HEMATOCRIT 34.8 % (35.0-46.0); HEMOGLOBIN 11.8 GM/DL (11.6-15.3); LYMPH % 2.2 % (9.0-44.0); LYMPHOCYTE # 0.1 TH/MM3 (1.0-4.8); MEAN CELL VOLUME 113.2 FL (80.0-100.0); MEAN CORPUSCULAR HEMOGLOBIN 38.3 PG (27.0-34.0); MEAN CORPUSCULAR HGB CONC 33.9 % (32.0-36.0); MEAN PLATELET VOLUME 6.9 FL (7.0-11.0); MONO % 1.1 % (0.0-8.0); MONOCYTE # 0.1 TH/MM3 (0-0.9); NEUT % 96.3 % (16.0-70.0); PLATELET COUNT 268 TH/MM3 (150-450); RED BLOOD COUNT 3.07 MIL/MM3 (4.00-5.30); RED CELL DISTRIBUTION WIDTH 16.2 % (11.6-17.2); WHITE BLOOD COUNT 4.6 TH/MM3 (4.0-11.0)
[2017-12-31] MEDS ORDERED: Post-op Orders (for Pharmacy) XX ONE (08:00)
[2017-12-31] MEDS: PCA - TOTAL MG MORPHINE DELIVERED PER SHIFT SCH ×3 (08:00→19:53)
[2017-12-31] MEDS: MORPHINE SULFATE 30 MG/30 ML PCA IV SCH ×2 (08:07→18:28)
[2017-12-31] MEDS: D5-LR + KCL 20 MEQ INJ 1,000 ML IV SCH ×3 (08:08→19:35)
[2017-12-31 08:15] LABS: BICARBONATE 21.9 MEQ/L (21.0-32.0); CALCIUM 7.3 MG/DL (8.5-10.1); CREATININE 0.41 MG/DL (0.50-1.00)
[2017-12-31 08:32] LABS: CALCIUM-PROTEIN CORRECTED 8.5 MG/DL (8.5-10.1)
[2017-12-31] MEDS: SODIUM CHLORIDE 0.9% FLUSH 10 ML FLUSH IV FLUSH SCH ×2 (09:00→19:36)
[2017-12-31] MEDS: ONDANSETRON HCL 4 MG/2 ML VIAL IV PUSH PRN ×3 (09:05→23:54)
[2017-12-31] MEDS: PANTOPRAZOLE SODIUM 40 MG VIAL IVP SCH (09:54)
[2017-12-31] MEDS: FUROSEMIDE 20 MG/2 ML VIAL IV PUSH SCH ×2 (09:55→19:36)
--- NOTE | 2017-12-31 10:03 | MP ---
cc: Julio Cesar Ibrahim MD DATE OF OPERATION: PREOPERATIVE DIAGNOSIS: Prolapsed small bowel from previous colostomy site. POSTOPERATIVE DIAGNOSIS: Prolapsed small bowel from previous colostomy site. OPERATIVE PROCEDURE: 1. Exploratory laparotomy. 2. Small bowel resection. 3. Revision of colostomy. ANESTHESIA: General endotracheal. SURGEON: Julio Cesar Ibrahim MD ESTIMATED BLOOD LOSS: 50 mL. OPERATIVE FINDINGS: This patient had a diverting loop colostomy by Dr. Vijay Gore approximately 3 weeks ago. Postoperatively, she did well and was sent home from the hospital and came to the hospital early this morning with prolapse of small bowel out of the colostomy site. The bowel was prolapsed about a foot, a loop of small bowel; I was unable to reduce it. I was able to reduce about half of it in the emergency room, but I could not reduce it all. It was quite edematous and ischemic. The colostomy was also partially edematous and ischemic on one half, the inferior portion. It appears as if the superior portion of the matured colostomy broke free and the small bowel prolapsed superiorly. Nevertheless, at surgery, the laparotomy was done. The bowel was reduced, and because of the edematous nature and ischemic appearance of the serosa of the bowel, I elected to do a small bowel resection. Approximately 10-12 inches of small bowel was resected, and a functional end-to-end anastomosis was done. The colostomy was also divided, and the ischemic portion of the distal end of the colostomy was excised, and the distal defunctionalized side of the colostomy was fully divided and closed with a TX 60 blue staple height stapler. An end colostomy was done. Of note, exploration of the abdominal cavity revealed that the small bowel in the pelvis was radiated markedly. Patient also had some colonic ileus, consisting mainly of air, and this was aspirated through the colostomy once we matured it. OPERATIVE TECHNIQUE: Patient was placed on the table in the supine position. After adequate general endotracheal anesthesia, the abdomen was prepped and draped and usual manner. Midline incision was made from above the umbilicus to the pubis and carried down through the linea alba and the peritoneal cavity was entered with the above-mentioned findings. There was a lot of ascites that drained. In order to reduce the small bowel from the colostomy stoma site, I needed to make an incision on the skin and the fascia superior to the colostomy and the prolapsed small bowel. Once this was done, I was able to reduce the small bowel into the abdominal cavity once again. We left the small bowel sit and revascularize for approximately 15 minutes, and I mobilized the descending and sigmoid colon a little bit more. Once I mobilized it superiorly, I mobilized some of the inferior as well. We noted that the distal small bowel and the distal colon was severely radiated from her previous anal cancer radiation. Because of length issues with the colostomy and the need to excise the distal end of the functional end of the colostomy, I elected to divide the colon fully and close the distal end with a TX 60 blue staple height stapler. This gave me adequate length to do an end colostomy in the same stoma site. Once this was done, we reassessed the small bowel and the serosal surface was somewhat ischemic. There was a lot of edema of the small bowel, mainly 4-5 inches, and then mild irritation of another 6 inches of the small bowel. Because of the patient's condition and her chronic obstructive pulmonary disease and the look of the bowel, we decided to remove the section of small bowel that had prolapsed. This was first done by dividing the bowel proximal and distally with a PAT 55 stapling device and then successively clamping, cutting and ligating the small bowel mesentery with 0 Vicryl ligatures. Functional end-to-end anastomosis was done with an Ethicon PAT 55 stapling device along the antimesenteric border of the small bowel, and then the enterotomy was closed with a TX 60 blue staple height stapler. The opening in the mesentery was approximated with a running 3-0 Vicryl suture. The small bowel was then replaced in the abdominal cavity in an small kick press operator manner, and the transverse colon was aspirated through the colostomy. The Moraima pouch was once again inspected and found to be staple closed well, and the colostomy was brought up through the colostomy site. The abdominal cavity was then closed with a single running double-stranded #1 PDS suture, and the subcutaneous tissue was irrigated thoroughly with saline solution and closed with skin tr. The colostomy was then matured with interrupted 3-0 Vicryl sutures, and a 57 mm appliance was placed on the stoma. Sponge, needle instrument counts were reported as correct. The estimated blood loss was 50 mL. Operating time was 1 hour. Patient tolerated the procedure well and left the operating room in good condition. MD MICHELE Larry/BRAYAN , 07:14 AM , 10:01 AM
[2017-12-31] MEDS ORDERED: SUCCINYLCHOLINE CHLORIDE 200 MG/10 ML VIAL IV ONE (12:00)
[2017-12-31] MEDS ORDERED: LIDOCAINE HCL 1% PF 5 ML SYRINGE OTHER ONE (12:00)
[2017-12-31] MEDS ORDERED: ONDANSETRON HCL 4 MG/2 ML VIAL IV ONE (12:00)
[2017-12-31] MEDS ORDERED: DEXAMETHASONE SOD PHOS 4 MG/ML VIAL IV ONE (12:00)
[2017-12-31] MEDS ORDERED: ROCURONIUM INJ 50 MG/5 ML SYRINGE IV PUSH ONE (12:00)
[2017-12-31] MEDS ORDERED: PROPOFOL 200 MG/20 ML AMP IV ONE (12:00)
[2017-12-31] MEDS ORDERED: PHENYLEPH/NS 1000 MCG/10 ML SYR IV ONE (12:00)
[2017-12-31] MEDS ORDERED: ceFAZolin INJ 1,000 MG VIAL IV ONE (12:00)
[2017-12-31] MEDS ORDERED: LACTATED RINGER'S 1000 ML INJ 2,000 ML IV ONE (12:00)
[2017-12-31] MEDS: METOCLOPRAMIDE HCL 10 MG/2 ML VIAL IVS SCH ×3 (12:04→23:53)
[2017-12-31] MEDS: metroNIDAZOLE 500 MG INJ 100 ML IV SCH ×2 (13:48→19:36)
[2018-01-01] VITALS (13 sets, daily range): BP systolic 118–161; BP diastolic 58–94; PULSE 92–139; RESP 13–25; TEMP 98.1–100.5; O2SAT 89–100
[2018-01-01] MEDS: D5-LR + KCL 20 MEQ INJ 1,000 ML IV SCH ×4 (00:39→21:55)
[2018-01-01] MEDS: metroNIDAZOLE 500 MG INJ 100 ML IV SCH (05:23)
[2018-01-01] MEDS: METOCLOPRAMIDE HCL 10 MG/2 ML VIAL IVS SCH ×4 (05:23→23:28)
[2018-01-01] MEDS: PCA - TOTAL MG MORPHINE DELIVERED PER SHIFT SCH ×3 (05:26→21:55)
[2018-01-01] MEDS: MORPHINE SULFATE 30 MG/30 ML PCA IV SCH ×4 (05:30→19:01)
[2018-01-01 05:56] LABS: AUTOMATED NEUTROPHIL # 6.8 TH/MM3 (1.8-7.7); BASOPHIL % 0.2 % (0.0-2.0); EOSINOPHIL % 0.6 % (0.0-4.0); HEMATOCRIT 26.3 % (35.0-46.0); HEMOGLOBIN 8.9 GM/DL (11.6-15.3); LYMPH % 4.4 % (9.0-44.0); LYMPHOCYTE # 0.3 TH/MM3 (1.0-4.8); MEAN CELL VOLUME 113.6 FL (80.0-100.0); MEAN CORPUSCULAR HEMOGLOBIN 38.3 PG (27.0-34.0); MEAN CORPUSCULAR HGB CONC 33.8 % (32.0-36.0); MEAN PLATELET VOLUME 6.9 FL (7.0-11.0); MONO % 3.3 % (0.0-8.0); MONOCYTE # 0.2 TH/MM3 (0-0.9); NEUT % 91.5 % (16.0-70.0); PLATELET COUNT 284 TH/MM3 (150-450); RED BLOOD COUNT 2.32 MIL/MM3 (4.00-5.30); RED CELL DISTRIBUTION WIDTH 16.2 % (11.6-17.2); WHITE BLOOD COUNT 7.5 TH/MM3 (4.0-11.0)
[2018-01-01 06:19] LABS: BICARBONATE 24.6 MEQ/L (21.0-32.0); CALCIUM 7.2 MG/DL (8.5-10.1); CREATININE 0.59 MG/DL (0.50-1.00)
[2018-01-01 06:34] LABS: CALCIUM-PROTEIN CORRECTED 8.7 MG/DL (8.5-10.1); TOTAL PROTEIN 4.4 GM/DL (6.4-8.2)
[2018-01-01] MEDS: SODIUM CHLORIDE 0.9% FLUSH 10 ML FLUSH IV FLUSH SCH ×2 (08:27→19:34)
[2018-01-01] MEDS: PANTOPRAZOLE SODIUM 40 MG VIAL IVP SCH (08:36)
[2018-01-01] MEDS: FUROSEMIDE 20 MG/2 ML VIAL IV PUSH SCH ×2 (08:37→19:34)
[2018-01-01] MEDS: ALVIMOPAN 12 MG CAPSULE PO SCH ×2 (09:58→19:35)
[2018-01-01] MEDS: SILVER SULFADIAZINE/LIDOCAINE CREAM 60 GM JAR RECTAL SCH ×2 (16:15→19:35)
[2018-01-01] MEDS: ONDANSETRON HCL 4 MG/2 ML VIAL IV PUSH PRN (23:28)
[2018-01-02] VITALS (10 sets, daily range): BP systolic 133–156; BP diastolic 69–93; PULSE 96–123; RESP 16–20; TEMP 96.3–98.2; O2SAT 89–95
[2018-01-02] MEDS: MORPHINE SULFATE 30 MG/30 ML PCA IV SCH ×3 (02:44→23:13)
[2018-01-02] MEDS: D5-LR + KCL 20 MEQ INJ 1,000 ML IV SCH (05:46)
[2018-01-02] MEDS: METOCLOPRAMIDE HCL 10 MG/2 ML VIAL IVS SCH ×4 (05:46→23:12)
[2018-01-02] MEDS: PCA - TOTAL MG MORPHINE DELIVERED PER SHIFT SCH ×3 (05:47→21:09)
[2018-01-02 05:52] LABS: AUTOMATED NEUTROPHIL # 9.5 TH/MM3 (1.8-7.7); BASOPHIL % 0.2 % (0.0-2.0); EOSINOPHIL % 0.3 % (0.0-4.0); HEMATOCRIT 31.2 % (35.0-46.0); HEMOGLOBIN 10.5 GM/DL (11.6-15.3); LYMPHOCYTE # 0.2 TH/MM3 (1.0-4.8); MEAN CELL VOLUME 113.6 FL (80.0-100.0); MEAN CORPUSCULAR HGB CONC 33.5 % (32.0-36.0); MEAN PLATELET VOLUME 7.8 FL (7.0-11.0); MONO % 3.6 % (0.0-8.0); MONOCYTE # 0.4 TH/MM3 (0-0.9); NEUT % 93.9 % (16.0-70.0); PLATELET COUNT 256 TH/MM3 (150-450); RED BLOOD COUNT 2.75 MIL/MM3 (4.00-5.30); RED CELL DISTRIBUTION WIDTH 16.9 % (11.6-17.2); WHITE BLOOD COUNT 10.1 TH/MM3 (4.0-11.0)
[2018-01-02 06:23] LABS: CALCIUM 7.8 MG/DL (8.5-10.1); CREATININE 0.4 MG/DL (0.50-1.00)
[2018-01-02] MEDS: SODIUM CHLORIDE 0.9% FLUSH 10 ML FLUSH IV FLUSH SCH ×2 (09:00→21:00)
[2018-01-02] MEDS: PANTOPRAZOLE SODIUM 40 MG VIAL IVP SCH (09:29)
[2018-01-02] MEDS: FUROSEMIDE 20 MG/2 ML VIAL IV PUSH SCH ×2 (09:29→21:09)
[2018-01-02] MEDS: ALVIMOPAN 12 MG CAPSULE PO SCH ×2 (09:29→21:08)
[2018-01-02] MEDS: SILVER SULFADIAZINE/LIDOCAINE CREAM 60 GM JAR RECTAL SCH ×2 (09:30→21:10)
[2018-01-02] MEDS: ONDANSETRON HCL 4 MG/2 ML VIAL IV PUSH PRN ×2 (09:30→21:10)
[2018-01-02] MEDS: DEXTROSE 5%-LACTATED RING INJ 1,000 ML IV SCH ×2 (10:16→21:09)
[2018-01-02] MEDS: ACETAMINOPHEN/HYDROcodone 325 MG/5 MG TAB PO PRN (15:40)
[2018-01-02] MEDS: RESP: ALBUTEROL 2.5 MG/3 ML NEB (SCH) INH ×2 (16:29→20:07)
[2018-01-03] VITALS: BP 149/87; PULSE 116; RESP 22; TEMP 97.8; O2SAT 92
[2018-01-03] MEDS: DEXTROSE 5%-LACTATED RING INJ 1,000 ML IV SCH ×2 (05:36→22:17)
[2018-01-03] MEDS: PCA - TOTAL MG MORPHINE DELIVERED PER SHIFT SCH (05:36)
[2018-01-03] MEDS: METOCLOPRAMIDE HCL 10 MG/2 ML VIAL IVS SCH ×3 (05:36→18:06)
[2018-01-03 08:00] VITALS: BP 150/87; PULSE 121; RESP 19; TEMP 96.9; O2SAT 95
[2018-01-03] MEDS: SILVER SULFADIAZINE/LIDOCAINE CREAM 60 GM JAR RECTAL SCH ×2 (09:00→19:47)
[2018-01-03] MEDS: PANTOPRAZOLE SODIUM 40 MG VIAL IVP SCH (09:08)
[2018-01-03] MEDS: ALVIMOPAN 12 MG CAPSULE PO SCH ×2 (09:08→19:47)
[2018-01-03] MEDS: SODIUM CHLORIDE 0.9% FLUSH 10 ML FLUSH IV FLUSH SCH ×2 (09:09→19:47)
--- NOTE | 2018-01-03 09:48 | HHI.PR ---
Subjective Remarks Still C/O nausea. No significant emesis. Wants liquids. Objective Vital Signs Date Time Temp Pulse Resp B/P (MAP) Pulse Ox O2 Delivery O2 Flow Rate FiO2 01/03/18 08:00 96.9 121 19 150/87 (108) 95 01/03/18 05:36 18 01/03/18 00:00 97.8 116 22 149/87 (107) 92 01/02/18 23:58 Nasal Cannula 2.00 01/02/18 23:13 18 01/02/18 21:12 96 01/02/18 21:09 18 01/02/18 20:09 95 Nasal Cannula 3.00 01/02/18 20:00 98.2 18 133/76 (95) 90 01/02/18 16:31 92 21 01/02/18 16:00 96.8 113 17 139/69 (92) 90 01/02/18 14:00 16 01/02/18 12:00 97.5 118 16 156/93 (114) 91 01/02/18 10:51 17 I/O 01/02/18 01/02/18 01/02/18 01/03/18 01/03/18 01/03/18 07:00 15:00 23:00 07:00 15:00 23:00 Intake Total 900 ml 750 ml 0 ml 0 ml Output Total 1675 ml 700 ml 1100 ml Balance -775 ml 750 ml -700 ml -1100 ml Intake Oral 0 ml 0 ml 0 ml IV Total 900 ml 750 ml Output Urine Total 1675 ml 600 ml 950 ml Stool Total 0 ml 100 ml 150 ml # Bowel Movements 0 Result Diagram: 01/02/18 0514 01/02/18 0514 Objective Remarks VS-S Abd: flat,taught,stoma pink I&Os-OK Assessment and Plan Assessment and Plan Stable. POD#3 Plan D/C planning. E-T nursing. PT. Luke if residual. Check labs Julio Cesar Ibrahim MD Jan 03, 2018 09:48
[2018-01-03] MEDS ORDERED: PILL SPLITTER OTHER PRN (11:45)
[2018-01-03 12:00] VITALS: BP 164/98; PULSE 117; RESP 19; TEMP 97.2; O2SAT 94
[2018-01-03 12:18] LABS: BICARBONATE 28.6 MEQ/L (21.0-32.0); CALCIUM 7.4 MG/DL (8.5-10.1); CREATININE 0.35 MG/DL (0.50-1.00)
[2018-01-03 12:31] LABS: CALCIUM-PROTEIN CORRECTED 8.7 MG/DL (8.5-10.1); TOTAL PROTEIN 4.8 GM/DL (6.4-8.2)
--- NOTE | 2018-01-03 13:31 | PD.WCN.NOT ---
Wound Consult Description: Consult for NEW OSTOMY TEACHING of llq per Dr Ibrahim Communicated with: Patient Recommendation: Change appliance every 5-7 days and PRN for leaks. Empty pouch of effluent when 1/3-1/2 full. Cleanse skin with water only. Allow peristomal skin to dry prior to new wafer application. Use skin prep if desired but allow to dry thoroughly. Mold or cut wafer to fit stoma. Additional Information: Patient seen on [address] [place] [address] for ostomy assessment and teaching with appliance change due to appliance leaking and noted upon entering room. Ostomy Type: Colostomy Surgeon: Lisa Ibrahim Date of Surgery: Jan 02, 2018 Complete: Starter kit (New starter kit sent out with moldable convexity appliances for minimally protruding stoma (<1cm) order # [id number]), Rx (Left on chart. Stoma size requires use of 2 1/4" appliances), Other (Patient has cut to fit supplies in room from home,from previous admission, that she can go home with at discharge in her correct size.) Educated patient on: Changing appliance today due to leaking noted upon assessment. Additional information Patient seen on [address] [place] [address] for ostomy assessment and teaching with entire pouching system change with 2 3/4" appliance available in patient room. Wafer was noted to be leaking from under neath @6 o'clock and was removed using a warm disposable washcloth. Peristomal skin was cleansed with water and allowed to air dry. Skin prep was applied and allowed to air dry thoroughly before placing wafer in oval shape around oval, pink, protruding, moist, stoma with no output noted from lumen. There was ~125ml of serosang drainage noted in pouch that was discarded with appliance change and charted in nursing bowel assessment. Patient stated that she was in pain, patient was pushing her button for IV pain medication and trying to get comfortable in the bed and falling asleep during pouching system change. Patient will be seen again tomorrow Wednesday01/04/18 for follow up of ostomy assessment and teaching. Roselyn [facility]onseca [facility] Jan 03, 2018 13:31
[2018-01-03] MEDS: ACETAMINOPHEN/HYDROcodone 325 MG/5 MG TAB PO PRN ×2 (14:20→19:46)
[2018-01-03] MEDS: RESP: ALBUTEROL 2.5 MG/3 ML NEB (SCH) INH ×3 (15:42→19:36)
[2018-01-03 16:00] VITALS: BP 149/82; PULSE 133; RESP 18; TEMP 96.4; O2SAT 97
[2018-01-03 19:38] VITALS: O2SAT 99
[2018-01-03] MEDS: busPIRone HCL 5 MG TAB PO SCH (19:46)
[2018-01-03 20:00] VITALS: BP 143/71; PULSE 114; RESP 20; TEMP 97.7; O2SAT 94
[2018-01-03] MEDS ORDERED: [UNRECOGNIZED DRUG - MIXTURE] RECTAL SCH (21:00)
[2018-01-04] VITALS (7 sets, daily range): BP systolic 119–145; BP diastolic 59–80; PULSE 104–135; RESP 19–20; TEMP 96.9–99.6; O2SAT 94–98
[2018-01-04] MEDS: METOCLOPRAMIDE HCL 10 MG/2 ML VIAL IVS SCH ×5 (00:25→23:35)
[2018-01-04] MEDS: ACETAMINOPHEN/HYDROcodone 325 MG/5 MG TAB PO PRN ×6 (00:26→23:34)
[2018-01-04] MEDS: RESP: ALBUTEROL 2.5 MG/3 ML NEB (SCH) INH ×4 (07:44→20:00)
[2018-01-04] MEDS: busPIRone HCL 5 MG TAB PO SCH ×2 (08:53→20:37)
[2018-01-04] MEDS: ALVIMOPAN 12 MG CAPSULE PO SCH ×2 (08:53→20:37)
[2018-01-04] MEDS: SODIUM CHLORIDE 0.9% FLUSH 10 ML FLUSH IV FLUSH SCH ×2 (08:53→20:37)
[2018-01-04] MEDS: PANTOPRAZOLE SODIUM 40 MG VIAL IVP SCH (08:53)
[2018-01-04] MEDS: SILVER SULFADIAZINE/LIDOCAINE CREAM 60 GM JAR RECTAL SCH ×2 (08:53→20:38)
[2018-01-04] MEDS: DEXTROSE 5%-LACTATED RING INJ 1,000 ML IV SCH (12:12)
--- NOTE | 2018-01-04 14:24 | HHI.FF ---
Face to Face Verification Diagnosis: (1) Colostomy status (2) Status post small bowel resection (3) Chronic pain (4) Evisceration of bowel Home Health Nursing Order: Medical education Signs/symptoms of disease process Oxygen administration education Medication education-adverse effect Wound care and dressing changes Nursing assessment with vital signs Instructions: Colostomy teaching and supplies I have seen patient Abi Mccarty on 01/04/18. My clinical findings support the need for the requested home health care services because: Ltd mobility - disease progression Patient has SOB Deconditioned w/ increased weakness Med compliance is questionable Limited ability to care for self Need for psychosocial assistance Impaired cognition/judgement High risk of falls I certify that my clinical findings support that this patient is homebound because: Post-op weakness Impaired cognitive ability/safety Hx COPD- exertion dyspnea/weakness Unsteady gait/balance Unsafe to leave home unassisted Need for psychosocial assistance Unable to use public transportation Julio Cesar Ibrahim MD Jan 04, 2018 14:24
--- NOTE | 2018-01-04 14:26 | HHI.PR ---
Subjective Remarks No N or V. Stooling. C/O anal pain Objective Vital Signs Date Time Temp Pulse Resp B/P (MAP) Pulse Ox O2 Delivery O2 Flow Rate FiO2 01/04/18 12:00 96.9 104 19 119/70 (86) 96 01/04/18 08:00 99.6 108 19 134/80 (98) 94 01/04/18 07:45 96 Nasal Cannula 2.00 01/04/18 00:00 97.1 135 20 144/75 (98) 96 01/03/18 21:30 Nasal Cannula 2.00 01/03/18 20:00 97.7 114 20 143/71 (95) 94 01/03/18 19:38 99 Nasal Cannula 2.00 01/03/18 16:00 96.4 133 18 149/82 (104) 97 I/O 01/03/18 01/03/18 01/03/18 01/04/18 01/04/18 01/04/18 07:00 15:00 23:00 07:00 15:00 23:00 Intake Total 0 ml 420 ml 60 ml Output Total 1100 ml 250 ml 250 ml 275 ml Balance -1100 ml -250 ml 170 ml -215 ml Intake Oral 0 ml 420 ml 60 ml Output Urine Total 950 ml 250 ml 100 ml Stool Total 150 ml 150 ml 225 ml Emesis 50 ml # Voids 1 3 4 Result Diagram: 01/02/18 0514 01/03/18 1045 Objective Remarks VS-S Abd: flat,taught,stoma pink,wound clean I&Os-OK Assessment and Plan Assessment and Plan Stable. POD#4 Plan D/C planning probably tomorrow.. E-T nursing. PT. Regular diet Julio Cesar Ibrahim MD Jan 04, 2018 14:26
--- NOTE | 2018-01-04 17:12 | PD.WCN.NOT ---
Wound Consult Description: Consult for NEW OSTOMY TEACHING of llq per Dr Ibrahim Communicated with: WALDEMAR Abdullahi Patient Recommendation: Change appliance every 5-7 days and PRN for leaks. Empty pouch of effluent when 1/3-1/2 full. Cleanse skin with water only. Allow peristomal skin to dry prior to new wafer application. Use skin prep if desired but allow to dry thoroughly prior to new wafer application. Mold or cut wafer to fit stoma. Ensure bottom of pouch is closed tightly to avoid leaks and odor. Additional Information: *Late entry* Patient seen on [address] earlier for ostomy assessment and appliance change. Ostomy Type: Colostomy Surgeon: Julio Cesar Ibrahim MD Date of Surgery: Jan 02, 2018 Complete: Starter kit (New starter kit sent out with moldable convexity appliances (order # [id number]) for minimally protruding stoma (<1cm) after sutures have dissolved), Rx (Left on chart. Stoma size requires use of 2 1/4" appliances until mucocutaneous junction is closed and sutures dissolved.), Other (Patient has cut to fit supplies in room from home,from previous admission , that she can go home with at discharge in her correct size.) Educated patient on: Emptying pouch before half full to avoid leaks and odor. Changing appliance every 5-7 days and PRN for leaks. Emptying pouch every 2-3 hours with current liquid effluent to avoid leaks and odor. Not allowing the pouch to fall into the effluent when emptying into the graduate. Measuring stoma for proper cut of wafer to fit around stoma to protect the skin. Cleansing peristomal skin with water and thoroughly drying. Applying 1 piece pouching system or 2 piece moldable appliances to dry skin. Additional information Patient seen earlier today for assessment of stoma and appliance change using 2 3/4" wafer and pouch. Upon entering room patient states that she is exhausted from taking care of her stoma today and further states that the pouch keeps filling up so fast. Kaylen states that she has emptied >500ml twice today already. Upon assessment of stoma, it appears to have effluent noted to pouch and wafer with what appears to be leaking from under neath @9 o'clock. Adhesive removal wipes were obtained to remove wafer and pouch. Stoma was dark pink, oval , protruding <1cm, functioning with liquid green/brown effluent from lumen noted in center of stoma. Mucocutaneous junction is noted circumferentially with sutures intact otherwise unremarkable. Peristomal skin is unremarkable, however close to the midline incision noted with tr and approximated suture line with scant serosang drainage which may be contributing to the leaking of the appliance so soon after application. Peristomal skin was cleansed with a warm washcloth using water only and pat dry. Cavilon skin prep was then applied to the peristomal skin and allowed to dry before applying the moldable wafer size 2 3/4". Pouch was then attached at the flange and the pouch was closed tightly at the bottom. Patient was strongly encouraged to call for assistance when pouch becomes half full. Patient will be followed up on tomorrow Wednesday01/05/18 prior to possible discharge. Roselyn Fonseca [facility] Jan 04, 2018 17:12
[2018-01-05] VITALS: BP 126/78; PULSE 127; RESP 20; TEMP 97.2; O2SAT 98
[2018-01-05] MEDS: ONDANSETRON HCL 4 MG/2 ML VIAL IV PUSH PRN (02:01)
[2018-01-05] MEDS: METOCLOPRAMIDE HCL 10 MG/2 ML VIAL IVS SCH (04:33)
[2018-01-05] MEDS: ACETAMINOPHEN/HYDROcodone 325 MG/5 MG TAB PO PRN ×5 (04:33→22:09)
[2018-01-05 08:00] VITALS: BP 125/64; PULSE 108; RESP 17; TEMP 97.3; O2SAT 98
[2018-01-05] MEDS: busPIRone HCL 5 MG TAB PO SCH ×2 (08:23→19:56)
[2018-01-05] MEDS: PANTOPRAZOLE SODIUM 40 MG VIAL IVP SCH (08:23)
[2018-01-05] MEDS: SODIUM CHLORIDE 0.9% FLUSH 10 ML FLUSH IV FLUSH SCH ×2 (08:23→19:59)
[2018-01-05] MEDS: ALVIMOPAN 12 MG CAPSULE PO SCH (08:23)
[2018-01-05] MEDS: ALBUTEROL SULFATE 90 MCG/ACT HFA 8 GM INHALER INH PRN (08:24)
[2018-01-05] MEDS: RESP: ALBUTEROL 2.5 MG/3 ML NEB (SCH) INH ×4 (08:24→19:38)
--- NOTE | 2018-01-05 08:37 | HHI.PR ---
Subjective Remarks No N or V. Stooling. Large stoma output but really only taking liquids. Urged solids and high fiber to thicken stools. Pt has significant Small bowel radiation and now a small bowel resection contributing to diarrhea. Objective Vital Signs Date Time Temp Pulse Resp B/P (MAP) Pulse Ox O2 Delivery O2 Flow Rate FiO2 01/05/18 08:25 Nasal Cannula 2.00 01/05/18 08:00 97.3 108 17 125/64 (84) 98 01/05/18 00:00 97.2 127 20 126/78 (94) 98 01/04/18 20:38 96 Nasal Cannula 2.00 01/04/18 20:00 97.2 105 20 136/77 (96) 98 01/04/18 16:00 97.4 114 19 145/59 (87) 94 01/04/18 12:00 96.9 104 19 119/70 (86) 96 I/O 01/04/18 01/04/18 01/04/18 01/05/18 01/05/18 01/05/18 07:00 15:00 23:00 07:00 15:00 23:00 Intake Total 60 ml 640 ml Output Total 275 ml 2800 ml 650 ml Balance -215 ml -2160 ml -650 ml Intake Oral 60 ml 640 ml Output Urine Total 400 ml Stool Total 225 ml 2400 ml 650 ml Emesis 50 ml # Voids 4 2 Result Diagram: 01/02/18 0514 01/03/18 1045 Objective Remarks VS-S Abd: flat,taught,stoma pink,wound clean I&Os->3000cc stoma output yesterday. Assessment and Plan Assessment and Plan Stable. POD#5 Plan D/C planning possibly tomorrow,depending on Colostomy outputs. Stop Entereg Add Metamucil Add Imodium 4mg po Q6H Check labs today. Julio Cesar Ibrahim MD Jan 05, 2018 08:37
[2018-01-05] MEDS: PSYLLIUM HUSK SF 3.4 GM in 5.8 GM PKT PO SCH ×2 (09:00→19:57)
[2018-01-05] MEDS: SILVER SULFADIAZINE/LIDOCAINE CREAM 60 GM JAR RECTAL SCH ×2 (09:00→19:58)
[2018-01-05] MEDS: LOPERAMIDE HCL 2 MG CAP PO SCH ×3 (09:43→19:57)
[2018-01-05] MEDS ORDERED: POTASSIUM CHLORIDE INJ 20 MEQ in DEXTROSE 5%-LACTATED RING INJ 1,000 ML IV SCH (10:00)
[2018-01-05 10:50] LABS: AUTOMATED NEUTROPHIL # 3.7 TH/MM3 (1.8-7.7); BASOPHIL % 0.2 % (0.0-2.0); EOSINOPHIL # 0.1 TH/MM3 (0-0.4); EOSINOPHIL % 1.6 % (0.0-4.0); HEMATOCRIT 26.6 % (35.0-46.0); LYMPH % 6.5 % (9.0-44.0); LYMPHOCYTE # 0.3 TH/MM3 (1.0-4.8); MEAN CELL VOLUME 110.4 FL (80.0-100.0); MEAN CORPUSCULAR HEMOGLOBIN 37.3 PG (27.0-34.0); MEAN CORPUSCULAR HGB CONC 33.8 % (32.0-36.0); MEAN PLATELET VOLUME 7.7 FL (7.0-11.0); MONO % 6.7 % (0.0-8.0); MONOCYTE # 0.3 TH/MM3 (0-0.9); PLATELET COUNT 139 TH/MM3 (150-450); RED BLOOD COUNT 2.41 MIL/MM3 (4.00-5.30); RED CELL DISTRIBUTION WIDTH 15.9 % (11.6-17.2); WHITE BLOOD COUNT 4.4 TH/MM3 (4.0-11.0)
[2018-01-05 11:03] LABS: BICARBONATE 29.5 MEQ/L (21.0-32.0); CALCIUM 6.6 MG/DL (8.5-10.1); CREATININE 0.33 MG/DL (0.50-1.00)
[2018-01-05 11:18] LABS: TOTAL PROTEIN 4.4 GM/DL (6.4-8.2)
[2018-01-05 12:00] VITALS: BP 119/81; PULSE 89; RESP 16; TEMP 97; O2SAT 95
[2018-01-05] MEDS: POTASSIUM CHLOR 20 MEQ PREMIX 100 ML IV SCH ×2 (13:13→14:56)
[2018-01-05 16:00] VITALS: BP 109/72; PULSE 108; RESP 17; TEMP 98.4; O2SAT 95
[2018-01-05] MEDS: POTASSIUM CHLORIDE 20 MEQ CONTROLLED RELEASE TAB PO SCH (19:57)
[2018-01-05 20:00] VITALS: BP 130/79; PULSE 100; RESP 20; TEMP 98.4; O2SAT 95
[2018-01-06] VITALS: BP 112/68; PULSE 102; RESP 18; TEMP 97.2; O2SAT 95
[2018-01-06] MEDS: LOPERAMIDE HCL 2 MG CAP PO SCH ×4 (02:24→20:07)
[2018-01-06] MEDS: ACETAMINOPHEN/HYDROcodone 325 MG/5 MG TAB PO PRN ×6 (02:27→22:26)
[2018-01-06] MEDS: ONDANSETRON HCL 4 MG/2 ML VIAL IV PUSH PRN (05:52)
[2018-01-06 07:21] LABS: BICARBONATE 27.1 MEQ/L (21.0-32.0); CALCIUM 6.6 MG/DL (8.5-10.1); CREATININE 0.3 MG/DL (0.50-1.00)
--- NOTE | 2018-01-06 07:47 | HHI.PR ---
Subjective Remarks C/R Surg POD afebrile, VSS stoma output down wound draining Objective - Vital Signs Date Time Temp Pulse Resp B/P (MAP) Pulse Ox O2 Delivery O2 Flow Rate FiO2 01/06/18 00:00 97.2 102 18 112/68 (83) 95 01/05/18 08:25 Nasal Cannula 2.00 01/02/18 16:31 21 Result Diagram: 01/05/18 1031 01/06/18 0535 Objective Remarks PE alert Abd - soft, wound draining serous fluid, stoma viable, sep from skin A/P Assessment and Plan Imp: incr wound care poss wound vac needs nutrition poss rehab placement Vijay Gore MD Jan 06, 2018 07:47
[2018-01-06 07:49] LABS: TOTAL PROTEIN 4.4 GM/DL (6.4-8.2)
[2018-01-06 08:00] VITALS: BP 119/60; PULSE 98; RESP 17; TEMP 97.4; O2SAT 96
[2018-01-06] MEDS: RESP: ALBUTEROL 2.5 MG/3 ML NEB (SCH) INH ×2 (08:00→11:42)
[2018-01-06] MEDS: PSYLLIUM HUSK SF 3.4 GM in 5.8 GM PKT PO SCH ×2 (09:00→20:07)
[2018-01-06] MEDS: SILVER SULFADIAZINE/LIDOCAINE CREAM 60 GM JAR RECTAL SCH ×2 (09:00→20:07)
[2018-01-06] MEDS: ALBUMIN 25% INJ 100 ML IV SCH ×2 (09:04→20:08)
[2018-01-06] MEDS: SODIUM CHLORIDE 0.9% FLUSH 10 ML FLUSH IV FLUSH SCH ×2 (09:04→20:10)
[2018-01-06] MEDS: PANTOPRAZOLE SODIUM 40 MG VIAL IVP SCH (09:05)
[2018-01-06] MEDS: DEXTROSE 5% IV SCH (09:08)
[2018-01-06] MEDS: busPIRone HCL 5 MG TAB PO SCH ×2 (09:08→20:07)
[2018-01-06] MEDS: LACTATED RING IV SCH (09:08)
[2018-01-06] MEDS: POTASSIUM CHLORIDE IV SCH (09:08)
[2018-01-06] MEDS: POTASSIUM CHLORIDE 20 MEQ CONTROLLED RELEASE TAB PO SCH ×2 (09:09→20:07)
[2018-01-06] MEDS ORDERED: POTASSIUM CHLOR 10 MEQ PREMIX 100 ML IV SCH (11:00)
[2018-01-06] MEDS: POTASSIUM CHLOR 20 MEQ PREMIX 100 ML IV SCH ×2 (11:28→15:38)
[2018-01-06 12:00] VITALS: BP 121/63; PULSE 104; RESP 16; TEMP 97.9; O2SAT 97
--- NOTE | 2018-01-06 14:55 | PD.WCN.NOT ---
Wound Consult Description: Consult for NEW OSTOMY TEACHING of [facility] per Dr Ibrahim Communicated with: WALDEMAR Garcia Patient Recommendation: Cleanse approximated midline abdominal surgical site daily and PRN with Normal Saline and pat dry. - Cut and apply a strip of Maxorb II over tr/drainage area and secure with bordered gauze dressing. - Date dressing and change as needed. Change appliance every 5-7 days and PRN for leaks. - Empty pouch of effluent when 1/3-1/2 full. - Cleanse skin with water only. - Allow peristomal skin to dry prior to new wafer application. - Use skin prep if desired but allow to dry thoroughly prior to new wafer application. - Mold or cut wafer to fit stoma. - Ensure bottom of pouch is closed tightly to avoid leaks and odor. Additional Information: Patient seen on for drainage to midline surgical incision with approximated edges and tr noted. There is minimal serosang drainage noted coming from out of the approximated wound margins of the surgical incision @9 o' clock peristomally. Post op surgical site was cleansed with Normal Saline and gauze and pat dry. A cut strip of Maxorb II was placed over the tr where drainage is noted and distally covering all of the tr. Maxorb II was secured with a bordered gauze dressing. Recommendations were made to WALDEMAR Garcia. Ostomy Type: Colostomy Surgeon: Julio Cesar Ibrahim MD Date of Surgery: Jan 02, 2018 Complete: Starter kit (New starter kit sent out with moldable convexity appliances (order # [id number]) for minimally protruding stoma (<1cm) after sutures have dissolved), Rx (Left on chart. Stoma size requires use of 2 1/4" appliances until mucocutaneous junction is closed and sutures dissolved.), Other (Patient has cut to fit supplies in room from home,from previous admission , that she can go home with at discharge in her correct size.) Educated patient on: Maxorb II dressing over her abdominal midline tr can be changed daily or as needed. Additional information Stoma is pink and functioning with appliance intact without leaks. Roselyn Fonseca [facility] Jan 06, 2018 14:55
[2018-01-06 16:00] VITALS: BP 139/75; PULSE 105; RESP 17; TEMP 99.4; O2SAT 96
[2018-01-06 20:00] VITALS: BP 151/62; PULSE 125; RESP 19; TEMP 98.9; O2SAT 95
[2018-01-06] MEDS: ALBUTEROL SULFATE 90 MCG/ACT HFA 8 GM INHALER INH PRN (20:10)
[2018-01-06] MEDS: ZOLPIDEM TARTRATE 5 MG TAB PO PRN (22:26)
[2018-01-07] VITALS: BP 145/74; PULSE 120; RESP 19; TEMP 98.9; O2SAT 94
[2018-01-07] MEDS: LOPERAMIDE HCL 2 MG CAP PO SCH ×3 (02:21→14:21)
[2018-01-07] MEDS: ACETAMINOPHEN/HYDROcodone 325 MG/5 MG TAB PO PRN ×4 (02:21→14:21)
[2018-01-07] MEDS: POTASSIUM CHLORIDE IV SCH ×2 (05:44→16:06)
[2018-01-07] MEDS: DEXTROSE 5% IV SCH ×2 (05:44→16:06)
[2018-01-07] MEDS: LACTATED RING IV SCH ×2 (05:44→16:06)
[2018-01-07 08:00] VITALS: BP 159/84; PULSE 108; RESP 18; TEMP 97.6; O2SAT 96
[2018-01-07] MEDS: SODIUM CHLORIDE 0.9% FLUSH 10 ML FLUSH IV FLUSH SCH ×2 (09:00→20:33)
[2018-01-07] MEDS: PSYLLIUM HUSK SF 3.4 GM in 5.8 GM PKT PO SCH (09:00)
[2018-01-07] MEDS: ALBUTEROL SULFATE 90 MCG/ACT HFA 8 GM INHALER INH PRN ×3 (10:06→18:42)
[2018-01-07] MEDS: ALBUMIN 25% INJ 100 ML IV SCH ×2 (10:06→20:32)
[2018-01-07] MEDS: PANTOPRAZOLE SODIUM 40 MG VIAL IVP SCH (10:07)
[2018-01-07] MEDS: busPIRone HCL 5 MG TAB PO SCH ×2 (10:08→20:33)
[2018-01-07] MEDS: POTASSIUM CHLORIDE 20 MEQ CONTROLLED RELEASE TAB PO SCH ×2 (10:09→20:33)
[2018-01-07 12:00] VITALS: BP 122/68; PULSE 94; RESP 18; TEMP 98.1; O2SAT 98
--- NOTE | 2018-01-07 12:08 | PD.WCN.NOT ---
Wound Consult Description: Consult for NEW OSTOMY TEACHING of [facility] per Dr Ibrahim Communicated with: WALDEMAR Pitt Patient Recommendation: Cleanse approximated midline abdominal surgical site TID and PRN with Normal Saline and pat dry. - Cut and apply a strip of Maxorb II over tr/drainage area and secure with bordered gauze dressing. - Date dressing and change as needed. Change appliance every 5-7 days and PRN for leaks. - Empty pouch of effluent when 1/3-1/2 full. - Cleanse skin with water only. - Allow peristomal skin to dry prior to new wafer application. - Use skin prep if desired but allow to dry thoroughly prior to new wafer application. - Mold the 2 1/4" moldable wafer or cut the "cut to fit wafer" to fit stoma. - Ensure bottom of pouch is closed tightly to avoid leaks and odor. Additional Information: Patient seen on for ostomy appliance assessment and midline incision assessment. WALDEMAR Pitt at bedside had just cleansed the midline incision suture line with tr intact and placed an abd pad and tape to secure. The abd pad was already saturated with a clear yellow fluid with the colostomy wafer leaking @3-4 o'clock. All dressings and wafer were removed by internal communications writer. WALDEMAR Pitt was called away at this time. Midline incision is noted with intact tr and unapproximated wound margins in three areas that have minimal clear yellow drainage noted coming from the surgical site. Patient abdomen is distended, when gently pressed let it be noted that the drainage from the incision becomes moderate. There is pitting edema noted to upper thighs. Staple line was cleansed with wound cleanser and gauze and pat dry and then prepped using Cavilon skin barrier spray. Maxorb II was placed over the staple line. Peristomal skin was assessed and noted with mucocutaneous separation @ 9 o' clock. Peristomal skin was prepped with Cavilon spray, a small piece of Maxorb II was placed in the mucocutaneous separation area with clear yellow drainage noted, and a cut to fit one piece pouching system was placed over the stoma with the patients hand held over the appliance to warm while internal communications writer finished dressing the midline surgical area. A bordered gauze dressing was placed over the Maxorb II that covered the staple line. Patient was assisted to the bedside commode. Once the patient was finished using the commode, patient was assisted back to bed and pulled up for comfort. Let it be noted that the dressing in place over the midline incision was showing strike through. This was communicated to WALDEMAR Pitt who came back into the room and visualized the dressing and ostomy appliance that appeared to be intact for the moment. Ostomy Type: Colostomy Surgeon: Julio Cesar Ibrahim MD Date of Surgery: Jan 02, 2018 Complete: Starter kit (New starter kit sent out with moldable convexity appliances (order # [id number]) for minimally protruding stoma (<1cm) after sutures have dissolved), Rx (Left on chart. Stoma size requires use of 2 1/4" appliances until mucocutaneous junction is closed and sutures dissolved.), Other (Patient has cut to fit supplies in room from home,from previous admission , that she can go home with at discharge in her correct size.) Educated patient on: Possible need for intervention regarding the midline incision with moderate clear yellow drainage. Additional information Patient being followed for ostomy and midline incision dressing. Roselyn Fonseca Jan 07, 2018 12:08
[2018-01-07] MEDS: SILVER SULFADIAZINE/LIDOCAINE CREAM 60 GM JAR RECTAL SCH ×2 (12:29→20:33)
[2018-01-07] MEDS: ONDANSETRON HCL 4 MG/2 ML VIAL IV PUSH PRN (15:09)
[2018-01-07 16:00] VITALS: BP 165/91; PULSE 117; RESP 20; TEMP 97.1; O2SAT 94
--- NOTE | 2018-01-07 17:39 | HHI.PR ---
Subjective Remarks C/R Surg POD afebrile, VSS stoma output down wound draining lg amount clear fluid Objective - Vital Signs Date Time Temp Pulse Resp B/P (MAP) Pulse Ox O2 Delivery O2 Flow Rate FiO2 01/07/18 16:00 97.1 117 20 165/91 (115) 94 01/07/18 08:00 Room Air 2.00 98 Result Diagram: 01/05/18 1031 01/06/18 0535 Objective Remarks PE alert Abd - soft, wound draining serous fluid, stoma viable, sep from skin A/P Assessment and Plan Imp: incr wound care wound vac to apply over tr needs nutrition poss rehab placement Vijay Gore MD Jan 07, 2018 17:39
[2018-01-07] MEDS ORDERED: POTASSIUM CHLOR 20 MEQ PREMIX 100 ML IV ONE (18:00)
[2018-01-07] MEDS: ACETAMINOPHEN/HYDROcodone 325 MG/7.5 MG TAB PO PRN (18:42)
[2018-01-07] MEDS: FUROSEMIDE 20 MG/2 ML VIAL IV PUSH SCH (18:48)
[2018-01-07 20:24] VITALS: BP 144/82; PULSE 91; RESP 20; TEMP 96.9; O2SAT 98
[2018-01-07] MEDS: ZOLPIDEM TARTRATE 5 MG TAB PO PRN (20:33)
[2018-01-07] MEDS ORDERED: LOPERAMIDE HCL 2 MG CAP PO PRN (21:00)
[2018-01-08] MEDS: ACETAMINOPHEN/HYDROcodone 325 MG/7.5 MG TAB PO PRN ×5 (00:20→18:44)
[2018-01-08 01:09] VITALS: BP 123/74; PULSE 113; RESP 18; TEMP 96.3; O2SAT 95
[2018-01-08] MEDS: ALBUTEROL SULFATE 90 MCG/ACT HFA 8 GM INHALER INH PRN ×4 (02:01→22:22)
[2018-01-08] MEDS: POTASSIUM CHLORIDE IV SCH (04:28)
[2018-01-08] MEDS: DEXTROSE 5% IV SCH (04:28)
[2018-01-08] MEDS: LACTATED RING IV SCH (04:28)
[2018-01-08 06:00] LABS: ALBUMIN 2.4 GM/DL (3.4-5.0); BICARBONATE 28.2 MEQ/L (21.0-32.0); CALCIUM-PROTEIN CORRECTED 8.1 MG/DL (8.5-10.1); CREATININE 0.34 MG/DL (0.50-1.00); TOTAL BILIRUBIN ADULT 0.7 MG/DL (0.2-1.0)
[2018-01-08 08:00] VITALS: BP 158/86; PULSE 108; RESP 20; TEMP 98.2; O2SAT 99
[2018-01-08] MEDS: SODIUM CHLORIDE 0.9% FLUSH 10 ML FLUSH IV FLUSH SCH ×2 (09:00→21:00)
--- NOTE | 2018-01-08 10:02 | HHI.PR ---
Subjective Remarks C/R Surg POD afebrile, VSS stoma output down - almost min wound draining lg amount clear fluid vac in place Objective - Vital Signs Date Time Temp Pulse Resp B/P (MAP) Pulse Ox O2 Delivery O2 Flow Rate FiO2 01/08/18 08:00 98.2 108 20 158/86 (110) 99 01/07/18 21:00 1.00 01/07/18 08:00 Room Air 98 Result Diagram: 01/05/18 1031 01/08/18 0510 Objective Remarks PE alert Abd - soft, wound draining serous fluid, stoma viable - pink, sep from skin A/P Assessment and Plan Imp: incr wound care wound vac to apply over tr needs nutrition poss rehab placement watch I/O Vijay Gore MD Jan 08, 2018 10:02
[2018-01-08] MEDS: ALBUMIN 25% INJ 100 ML IV SCH ×2 (10:04→22:22)
[2018-01-08] MEDS: busPIRone HCL 5 MG TAB PO SCH ×2 (10:05→22:23)
[2018-01-08] MEDS: PANTOPRAZOLE SODIUM 40 MG VIAL IVP SCH (10:06)
[2018-01-08] MEDS: SILVER SULFADIAZINE/LIDOCAINE CREAM 60 GM JAR RECTAL SCH ×2 (10:06→22:24)
[2018-01-08] MEDS: RESP: IPRATROPIUM 0.5 MG/2.5 ML NEB NEB PRN (10:21)
[2018-01-08 10:33] VITALS: O2SAT 100
[2018-01-08 12:00] VITALS: BP 115/75; PULSE 106; RESP 17; TEMP 97.6; O2SAT 98
[2018-01-08] MEDS: FUROSEMIDE 20 MG/2 ML VIAL IV PUSH SCH ×2 (15:04→18:00)
[2018-01-08 16:00] VITALS: BP 137/137; PULSE 107; RESP 18; TEMP 98.2; O2SAT 97
[2018-01-08 20:00] VITALS: BP 118/71; PULSE 111; RESP 17; TEMP 96.6; O2SAT 93
[2018-01-08] MEDS: POTASSIUM CHLORIDE 20 MEQ CONTROLLED RELEASE TAB PO SCH (22:23)
[2018-01-08] MEDS: ZOLPIDEM TARTRATE 5 MG TAB PO PRN (22:51)
[2018-01-09] VITALS: BP 120/85; PULSE 108; RESP 17; TEMP 97.3; O2SAT 93
[2018-01-09] MEDS: LACTATED RING IV SCH ×2 (00:13→22:53)
[2018-01-09] MEDS: DEXTROSE 5% IV SCH ×2 (00:13→22:53)
[2018-01-09] MEDS: POTASSIUM CHLORIDE IV SCH ×2 (00:13→22:53)
[2018-01-09] MEDS: ACETAMINOPHEN/HYDROcodone 325 MG/7.5 MG TAB PO PRN ×2 (00:16→06:20)
[2018-01-09] MEDS: RESP: IPRATROPIUM 0.5 MG/2.5 ML NEB NEB PRN ×2 (01:06→11:58)
[2018-01-09 01:08] VITALS: O2SAT 97
[2018-01-09] MEDS: ALBUTEROL SULFATE 90 MCG/ACT HFA 8 GM INHALER INH PRN ×3 (05:49→22:54)
[2018-01-09 08:00] VITALS: BP 163/96; PULSE 102; RESP 20; TEMP 96; O2SAT 100
[2018-01-09 08:44] LABS: AUTOMATED NEUTROPHIL # 7.8 TH/MM3 (1.8-7.7); BASOPHIL % 0.2 % (0.0-2.0); EOSINOPHIL # 0.1 TH/MM3 (0-0.4); EOSINOPHIL % 1.3 % (0.0-4.0); HEMATOCRIT 23.7 % (35.0-46.0); HEMOGLOBIN 7.9 GM/DL (11.6-15.3); LYMPH % 3.8 % (9.0-44.0); LYMPHOCYTE # 0.3 TH/MM3 (1.0-4.8); MEAN CELL VOLUME 110.1 FL (80.0-100.0); MEAN CORPUSCULAR HEMOGLOBIN 36.6 PG (27.0-34.0); MEAN CORPUSCULAR HGB CONC 33.2 % (32.0-36.0); MEAN PLATELET VOLUME 8.8 FL (7.0-11.0); MONO % 4.9 % (0.0-8.0); MONOCYTE # 0.4 TH/MM3 (0-0.9); NEUT % 89.8 % (16.0-70.0); PLATELET COUNT 136 TH/MM3 (150-450); RED BLOOD COUNT 2.15 MIL/MM3 (4.00-5.30); RED CELL DISTRIBUTION WIDTH 16.6 % (11.6-17.2); WHITE BLOOD COUNT 8.7 TH/MM3 (4.0-11.0)
[2018-01-09] MEDS: SODIUM CHLORIDE 0.9% FLUSH 10 ML FLUSH IV FLUSH SCH ×2 (09:00→19:47)
[2018-01-09] MEDS: FUROSEMIDE 20 MG/2 ML VIAL IV PUSH SCH ×2 (09:00→17:19)
[2018-01-09] MEDS: SILVER SULFADIAZINE/LIDOCAINE CREAM 60 GM JAR RECTAL SCH ×2 (09:54→19:48)
[2018-01-09] MEDS: ALBUMIN 25% INJ 100 ML IV SCH ×2 (09:54→19:35)
[2018-01-09] MEDS: busPIRone HCL 5 MG TAB PO SCH ×2 (09:57→19:48)
[2018-01-09] MEDS: POTASSIUM CHLORIDE 20 MEQ CONTROLLED RELEASE TAB PO SCH ×2 (09:57→19:48)
[2018-01-09] MEDS: PANTOPRAZOLE SODIUM 40 MG VIAL IVP SCH (09:57)
[2018-01-09 12:00] VITALS: BP 124/78; PULSE 127; RESP 22; TEMP 96.9; O2SAT 100; O2SAT 97
[2018-01-09] MEDS ORDERED: ONDANSETRON HCL 4 MG/2 ML VIAL IV ONE (12:00)
[2018-01-09] MEDS ORDERED: NEOSTIGMINE 5 MG/5 ML SYRINGE IV PUSH ONE (12:00)
[2018-01-09] MEDS ORDERED: ROCURONIUM INJ 50 MG/5 ML SYRINGE IV PUSH ONE (12:00)
[2018-01-09] MEDS ORDERED: NORMOSOL R INJ 1,000 ML IV ONE (12:00)
[2018-01-09] MEDS ORDERED: LIDOCAINE HCL 1% PF 5 ML SYRINGE OTHER ONE (12:00)
[2018-01-09] MEDS ORDERED: SUCCINYLCHOLINE CHLORIDE 200 MG/10 ML VIAL IV ONE (12:00)
[2018-01-09] MEDS ORDERED: PHENYLEPH/NS 1000 MCG/10 ML SYR IV ONE (12:00)
[2018-01-09] MEDS ORDERED: GLYCOPYRROLATE 1 MG/5 ML SYRINGE IV PUSH ONE (12:00)
[2018-01-09] MEDS ORDERED: PROPOFOL 200 MG/20 ML AMP IV ONE (12:00)
[2018-01-09] MEDS ORDERED: fentaNYL CITRATE 250 MCG/5 ML AMP ONE (12:13)
[2018-01-09] MEDS ORDERED: BUPIVACAINE HCL PF 0.5% 30 ML VIAL ONE (12:17)
[2018-01-09] MEDS ORDERED: ALBUMIN 5% INJ 250 ML IV ONE (12:22)
[2018-01-09] MEDS ORDERED: RESP: ALBUTEROL 2.5 MG/3 ML NEB (PRN) ONE (12:32)
[2018-01-09] MEDS ORDERED: metroNIDAZOLE 500 MG INJ 100 ML IV ONE (12:39)
[2018-01-09] MEDS ORDERED: ceFAZolin INJ 1,000 MG VIAL ONE (12:40)
[2018-01-09] MEDS ORDERED: SUGAMMADEX SODIUM 200 MG/2 ML VIAL IV PUSH ONE (14:06)
[2018-01-09] MEDS ORDERED: *ONDANSETRON 4 MG VIAL PERIprocedural Use ONLY ONE (14:14)
[2018-01-09] MEDS ORDERED: *morphine SULFATE 4 MG/ML PERIprocedure ONLY ONE ×2 (14:27→14:50)
[2018-01-09] MEDS ORDERED: NALOXONE HCL 0.4 MG/ML AMP IV PUSH PRN (14:30)
[2018-01-09] MEDS ORDERED: *RESP: ALBUTEROL 2.5 MG/3 ML NEB (PRN) PERIprocedural Use ONLY NEB ONE (15:10)
[2018-01-09] MEDS ORDERED: *PROMETHAZINE 25 MG/ML VIAL PERIprocedural use ONLY ONE (15:34)
[2018-01-09] MEDS: MORPHINE SULFATE 30 MG/30 ML PCA IV SCH (15:40)
[2018-01-09] MEDS ORDERED: FUROSEMIDE 20 MG/2 ML VIAL IV PUSH SCH (15:45)
[2018-01-09 16:00] VITALS: BP 153/83; PULSE 101; RESP 20; TEMP 95.5; O2SAT 98
[2018-01-09 19:30] VITALS: BP 145/71; PULSE 120; RESP 22; TEMP 99.1; O2SAT 92
[2018-01-09] MEDS: metroNIDAZOLE 500 MG INJ 100 ML IV SCH (19:46)
[2018-01-09 20:27] LABS: HEMATOCRIT 27.4 % (35.0-46.0); HEMOGLOBIN 9.3 GM/DL (11.6-15.3)
[2018-01-09] MEDS: PCA - TOTAL MG MORPHINE DELIVERED PER SHIFT SCH (22:52)
[2018-01-10] VITALS (8 sets, daily range): BP systolic 111–155; BP diastolic 65–78; PULSE 100–119; RESP 19–22; TEMP 96.2–100.4; O2SAT 93–98
[2018-01-10] MEDS: MORPHINE SULFATE 30 MG/30 ML PCA IV SCH ×3 (00:25→22:47)
[2018-01-10] MEDS: metroNIDAZOLE 500 MG INJ 100 ML IV SCH ×3 (04:48→23:00)
[2018-01-10] MEDS: DEXTROSE 5% IV SCH ×2 (04:49→18:12)
[2018-01-10] MEDS: POTASSIUM CHLORIDE IV SCH ×2 (04:49→18:12)
[2018-01-10] MEDS: LACTATED RING IV SCH ×2 (04:49→18:12)
[2018-01-10] MEDS: PCA - TOTAL MG MORPHINE DELIVERED PER SHIFT SCH ×3 (05:04→22:00)
[2018-01-10] MEDS: ALBUTEROL SULFATE 90 MCG/ACT HFA 8 GM INHALER INH PRN ×3 (06:41→23:14)
[2018-01-10] MEDS: SILVER SULFADIAZINE/LIDOCAINE CREAM 60 GM JAR RECTAL SCH ×2 (07:54→18:12)
[2018-01-10 08:46] LABS: AUTOMATED NEUTROPHIL # 11.6 TH/MM3 (1.8-7.7); BASOPHIL % 0.2 % (0.0-2.0); EOSINOPHIL % 0.3 % (0.0-4.0); HEMATOCRIT 28.8 % (35.0-46.0); HEMOGLOBIN 9.7 GM/DL (11.6-15.3); LYMPH % 2.5 % (9.0-44.0); LYMPHOCYTE # 0.3 TH/MM3 (1.0-4.8); MEAN CORPUSCULAR HEMOGLOBIN 34.6 PG (27.0-34.0); MEAN CORPUSCULAR HGB CONC 33.6 % (32.0-36.0); MEAN PLATELET VOLUME 8.9 FL (7.0-11.0); MONO % 3.9 % (0.0-8.0); MONOCYTE # 0.5 TH/MM3 (0-0.9); NEUT % 93.1 % (16.0-70.0); PLATELET COUNT 159 TH/MM3 (150-450); RED BLOOD COUNT 2.79 MIL/MM3 (4.00-5.30); RED CELL DISTRIBUTION WIDTH 21.9 % (11.6-17.2); WHITE BLOOD COUNT 12.4 TH/MM3 (4.0-11.0)
[2018-01-10] MEDS: ALBUMIN 25% INJ 100 ML IV SCH ×2 (08:50→23:01)
[2018-01-10] MEDS: busPIRone HCL 5 MG TAB PO SCH ×2 (08:51→23:13)
[2018-01-10] MEDS: PANTOPRAZOLE SODIUM 40 MG VIAL IVP SCH (08:51)
[2018-01-10] MEDS: POTASSIUM CHLORIDE 20 MEQ CONTROLLED RELEASE TAB PO SCH ×2 (08:52→23:12)
[2018-01-10] MEDS: FUROSEMIDE 20 MG/2 ML VIAL IV PUSH SCH ×2 (08:56→17:01)
[2018-01-10] MEDS: SODIUM CHLORIDE 0.9% FLUSH 10 ML FLUSH IV FLUSH SCH ×2 (08:56→22:59)
[2018-01-10 09:08] LABS: CALCIUM 7.5 MG/DL (8.5-10.1); CREATININE 0.4 MG/DL (0.50-1.00)
[2018-01-10] MEDS ORDERED: ACETAMINOPHEN 325 MG TAB PO PRN (10:30)
--- NOTE | 2018-01-10 17:50 | PD.WCN.NOT ---
Wound Consult Description: Consult for NEW OSTOMY TEACHING of [facility] per Dr Ibrahim Communicated with: WALDEMAR Jensen RN [facility] Recommendation: Change appliance every 5-7 days and PRN for leaks. - Empty pouch of effluent when 1/3-1/2 full. - Cleanse skin with water only. - Allow peristomal skin to dry prior to new wafer application. - Use skin prep if desired but allow to dry thoroughly prior to new wafer application. - Mold the 2 1/4" moldable wafer or cut the "cut to fit wafer" to fit stoma. - Ensure bottom of pouch is closed tightly to avoid leaks and odor. Additional Information: Patient seen by Emily MEDEIROS, [facility] earlier this am. Patient not seen by administrative underwriter today. WALDEMAR Jensen states that the patient did not sleep well last night and is sleeping now. Patient will be seen by administrative underwriter on Wednesday01/11/18. [facility] Jan 10, 2018 17[facility]50
[2018-01-10] MEDS: RESP: IPRATROPIUM 0.5 MG/2.5 ML NEB NEB PRN (18:14)
--- NOTE | 2018-01-10 18:18 | HHI.PR ---
Subjective Remarks C/R Surg POD #1 afebrile, VSS stoma min wound draining less, DUKE pouched Objective - Vital Signs Date Time Temp Pulse Resp B/P (MAP) Pulse Ox O2 Delivery O2 Flow Rate FiO2 01/10/18 17:57 94 Nasal Cannula 2.00 01/10/18 16:00 97.2 117 20 116/69 (85) 01/08/18 08:10 97 Result Diagram: 01/10/1880401/10/18 0805 Objective Remarks PE alert Abd - soft, induration posteriorly, stoma viable A/P Assessment and Plan Imp: incr wound care needs nutrition poss rehab placement watch I/O Vijay Gore MD Jan 10, 2018 18:17
[2018-01-10] MEDS: ZOLPIDEM TARTRATE 5 MG TAB PO PRN (22:38)
[2018-01-11] VITALS (7 sets, daily range): BP systolic 109–158; BP diastolic 67–87; PULSE 110–118; RESP 16–20; TEMP 97.6–100.2; O2SAT 93–98
[2018-01-11] MEDS: RESP: IPRATROPIUM 0.5 MG/2.5 ML NEB NEB PRN (03:45)
[2018-01-11] MEDS: PCA - TOTAL MG MORPHINE DELIVERED PER SHIFT SCH ×3 (06:00→19:37)
[2018-01-11] MEDS: metroNIDAZOLE 500 MG INJ 100 ML IV SCH ×3 (06:04→19:39)
[2018-01-11] MEDS: ALBUTEROL SULFATE 90 MCG/ACT HFA 8 GM INHALER INH PRN ×3 (06:04→22:00)
--- NOTE | 2018-01-11 07:22 | MP ---
cc: Vijay Gore MD DATE OF OPERATION: 01/09/2018 PREOPERATIVE DIAGNOSIS: Abdominal wound dehiscence. PROCEDURES: 1. Exploratory laparotomy with irrigation of abdominal cavity. 2. Closure of abdominal wound with bilateral subcutaneous flaps and multiple relaxing incisions. POSTOPERATIVE DIAGNOSIS: Abdominal wall wound dehiscence. SURGEON: Vijay Gore MD GLASS CUTTER HAND: Jeremiah Nelson MD PROCEDURE: The patient was placed in the supine position. After adequate general anesthesia, her abdomen was prepped with betadine solution and draped in usual sterile fashion. With Dr. Nelson's assistance, the previous midline incision was already opened, and small bowel contents were up on the abdominal wall. The fascial sutures were removed and the abdomen completely opened along the length of the incision. Exploration revealed the previous small bowel anastomosis to be intact without evidence of any leakage. The Moraima pouch appeared to be intact without evidence of leakage. There were some inflammatory changes along the left peritoneal reflection. Some straw colored ascites was also present within the abdomen. The small bowel was run from ligament of Treitz down to ileocecal valve and felt to be pretty normal. Colon was gently distended, but did not show any signs of ischemia. The abdomen was then irrigated copiously with normal saline. The fascial suture was intact, but it had pulled through the abdominal wall muscles along the entire length of the incision. After adequate irrigation and debridement, the Juanpablo-Mosley drain was placed into the pelvis and brought up to a stab wound in the right lower quadrant. Subcutaneous flaps were then created on both sides of the abdominal incision preserving the area around the colostomy. After very extensive mobilization, there did appear to be a little more laxity of the abdominal wall to enable a primary closure. The midline incision was therefore closed, gently bringing the midline fascia together with a running #1 PDS suture. Care was taken not to devascularize any further muscular tissue. After closing the midline, relaxing incisions were made, both along the rectus sheath and then laterally along the insertion of the transversus abdominus. This did relieve some tension on the abdominal wall closure. The subcutaneous tissue was irrigated copiously, and a Juanpablo-Mosley drain was placed into the subcutaneous tissue and brought out through a stab wound in the right side of the abdomen and secured to the skin with a nylon suture. The subcutaneous tissues were then reapproximated in the midline with interrupted Vicryl sutures and the skin closed with a row of surgical tr. Wound area washed with normal saline and dried, sterile dressing of Telfa and gauze applied. The colostomy was also rematured to its relocation through the separation of mucocutaneous junction. ADDENDUM: It should be noted that the liver and gallbladder were pretty unremarkable during the exploratory laparotomy. The patient tolerated the procedure quite well and was brought to the recovery room in stable condition. Sponge and needle counts were correct at the end of the procedure. MD MICHAEL Ortiz/DL , 09:53 PM , 07:20 AM
[2018-01-11] MEDS: SODIUM CHLORIDE 0.9% FLUSH 10 ML FLUSH IV FLUSH SCH ×2 (09:00→19:39)
[2018-01-11] MEDS: ALBUMIN 25% INJ 100 ML IV SCH ×2 (09:04→19:39)
[2018-01-11] MEDS: busPIRone HCL 5 MG TAB PO SCH ×2 (09:05→19:38)
[2018-01-11] MEDS: PANTOPRAZOLE SODIUM 40 MG VIAL IVP SCH (09:05)
[2018-01-11] MEDS: POTASSIUM CHLORIDE 20 MEQ CONTROLLED RELEASE TAB PO SCH ×2 (09:05→19:38)
[2018-01-11] MEDS: DEXTROSE 5% IV SCH ×2 (09:33→15:08)
[2018-01-11] MEDS: POTASSIUM CHLORIDE IV SCH ×2 (09:33→15:08)
[2018-01-11] MEDS: LACTATED RING IV SCH ×2 (09:33→15:08)
[2018-01-11] MEDS: FUROSEMIDE 20 MG/2 ML VIAL IV PUSH SCH ×2 (09:43→18:34)
[2018-01-11] MEDS: SILVER SULFADIAZINE/LIDOCAINE CREAM 60 GM JAR RECTAL SCH ×2 (09:44→19:38)
[2018-01-11] MEDS: MORPHINE SULFATE 30 MG/30 ML PCA IV SCH ×2 (11:00→19:36)
--- NOTE | 2018-01-11 11:31 | PD.WCN.NOT ---
Wound Consult Description: Consult for NEW OSTOMY TEACHING of [facility] per Dr Ibrahim Communicated with: WALDEMAR Jensen Patient Recommendation: Change appliance every 5-7 days and PRN for leaks. - Empty pouch of effluent when 1/3-1/2 full. - Cleanse skin with water only. - Allow peristomal skin to dry prior to new wafer application. - Use skin prep if desired but allow to dry thoroughly prior to new wafer application. - Mold the 2 1/4" moldable wafer or cut the "cut to fit wafer" to fit stoma. - Ensure bottom of pouch is closed tightly to avoid leaks and odor. Additional Information: Patient seen on for ostomy assessment. Ostomy Type: Colostomy Surgeon: Julio Cesar Ibrahim MD Date of Surgery: Jan 02, 2018 Complete: Starter kit (New starter kit sent out with moldable convexity appliances (order # [id number]) for minimally protruding stoma (<1cm) after sutures have dissolved), Rx (Left on chart. Stoma size requires use of 2 1/4" appliances until mucocutaneous junction is closed and sutures dissolved.), Other (Patient has cut to fit supplies in room from home,from previous admission , that she can go home with at discharge in her correct size.) Educated patient on: Stoma appearance Lack of output Additional information Patient seen on for ostomy assessment with WALDEMAR Jensen at bedside. Stoma is located on the left side abdomen, pink, moist, protruding, not functioning at this time. Drain noted to right side abdomen was emptied by ghost writer and communicated to WALDEMAR Jensen for I&O's. Patient to be followed daily by ring stamper. [facility] Jan 11, 2018 11:31
[2018-01-11] MEDS ORDERED: SODIUM CHLORIDE 0.9% FLUSH 10 ML FLUSH IV FLUSH PRN (14:15)
[2018-01-11] MEDS: ZOLPIDEM TARTRATE 5 MG TAB PO PRN (19:38)
--- NOTE | 2018-01-11 20:08 | HHI.PR ---
Subjective Remarks C/R Surg POD #2 afebrile, VSS stoma min wound draining less, DUKE pouched Objective - Vital Signs Date Time Temp Pulse Resp B/P (MAP) Pulse Ox O2 Delivery O2 Flow Rate FiO2 01/11/18 19:37 20 01/11/18 16:00 98.1 117 118/67 (84) 93 01/11/18 09:50 Nasal Cannula 3.00 01/08/18 08:10 97 Result Diagram: 01/10/1880401/10/18 08 Objective Remarks PE alert Abd - soft, induration posteriorly, stoma viable DUKE less A/P Assessment and Plan Imp: incr wound care needs nutrition _TPN watch I/O Vijay Gore MD Jan 11, 2018 20:08
[2018-01-12] VITALS (7 sets, daily range): BP systolic 100–150; BP diastolic 60–72; PULSE 98–116; RESP 16–20; TEMP 98.9–100.9; O2SAT 92–98
[2018-01-12] MEDS: RESP: IPRATROPIUM 0.5 MG/2.5 ML NEB NEB PRN ×4 (00:22→21:59)
[2018-01-12] MEDS: POTASSIUM CHLORIDE IV SCH ×3 (04:10→19:54)
[2018-01-12] MEDS: LACTATED RING IV SCH ×3 (04:10→19:54)
[2018-01-12] MEDS: DEXTROSE 5% IV SCH ×3 (04:10→19:54)
[2018-01-12] MEDS: ALBUTEROL SULFATE 90 MCG/ACT HFA 8 GM INHALER INH PRN (04:24)
[2018-01-12] MEDS: metroNIDAZOLE 500 MG INJ 100 ML IV SCH ×3 (04:36→19:52)
[2018-01-12] MEDS: PCA - TOTAL MG MORPHINE DELIVERED PER SHIFT SCH ×3 (04:42→19:54)
[2018-01-12] MEDS: ONDANSETRON HCL 4 MG/2 ML VIAL IV PUSH PRN (08:00)
[2018-01-12] MEDS: ALBUMIN 25% INJ 100 ML IV SCH ×2 (08:00→19:52)
[2018-01-12] MEDS: busPIRone HCL 5 MG TAB PO SCH ×2 (08:01→19:54)
[2018-01-12] MEDS: SODIUM CHLORIDE 0.9% FLUSH 10 ML FLUSH IV FLUSH SCH ×3 (08:01→19:52)
[2018-01-12] MEDS: POTASSIUM CHLORIDE 20 MEQ CONTROLLED RELEASE TAB PO SCH ×2 (08:01→19:53)
[2018-01-12] MEDS: PANTOPRAZOLE SODIUM 40 MG VIAL IVP SCH (08:01)
[2018-01-12] MEDS: SILVER SULFADIAZINE/LIDOCAINE CREAM 60 GM JAR RECTAL SCH ×2 (08:02→19:54)
[2018-01-12] MEDS: FUROSEMIDE 20 MG/2 ML VIAL IV PUSH SCH ×2 (08:13→16:25)
[2018-01-12] MEDS: MORPHINE SULFATE 30 MG/30 ML PCA IV SCH ×2 (08:13→16:26)
--- NOTE | 2018-01-12 11:08 | PD.WCN.NOT ---
Wound Consult Description: Consult for NEW OSTOMY TEACHING of [facility] per Dr Ibrahim Communicated with: Patient Recommendation: Change appliance every 5-7 days and PRN for leaks. - Empty pouch of effluent when 1/3-1/2 full. - Cleanse skin with water only. - Allow peristomal skin to dry prior to new wafer application. - Use skin prep if desired but allow to dry thoroughly prior to new wafer application. - Mold the 1 3/4" moldable wafer or cut the "cut to fit wafer" to fit stoma. - Ensure bottom of pouch is closed tightly to avoid leaks and odor. Additional Information: Patient seen on for ostomy assessment and teaching. Ostomy Type: Colostomy Surgeon: Julio Cesar Ibrahim MD Date of Surgery: Jan 02, 2018 Complete: Starter kit (New starter kit sent out with moldable convexity appliances (order # [id number]) for minimally protruding stoma (<1cm) after sutures have dissolved), Rx (Left on chart. Stoma size requires use of 2 1/4" appliances until mucocutaneous junction is closed and sutures dissolved.), Other (Patient has cut to fit supplies in room from home,from previous admission , that she can go home with at discharge in her correct size.) Educated patient on: Output of stoma Appearance of stoma Emptying pouch when 1/3-1/2 full of effluent Changing pouch before leaks and every 5-7 days Additional information Patient was seen on for ostomy assessment and teaching. Patient was lying in bed, xie catheter in place, ostomy pouching system noted to right side oh drain, ostomy pouching system over colostomy on left side abdomen, tr noted to midline incision with foam tape. Stoma is red, moist, viable, not functioning at this time during assessment, however there is a minimal amount of green/brown liquid effluent noted in pouch that was not emptied by life underwriter. [facility] Jan 12, 2018 11:08
--- NOTE | 2018-01-12 16:03 | HHI.PR ---
Subjective Remarks C/R Surg POD #3 afebrile, VSS stoma min - LITTLE FLATUS wound draining less, DUKE pouched Objective - Vital Signs Date Time Temp Pulse Resp B/P (MAP) Pulse Ox O2 Delivery O2 Flow Rate FiO2 01/12/18 12:00 99.1 111 16 119/60 (79) 94 01/12/18 08:14 Nasal Cannula 3.00 01/08/18 08:10 97 Result Diagram: 01/10/18 0801/10/18 0805 Objective Remarks PE alert Abd - soft, induration posteriorly, stoma viable DUKE less, wound opened/packed A/P Assessment and Plan Imp: incr wound care needs nutrition _TPN started watch I/O Vijay Gore MD Jan 12, 2018 16:02
[2018-01-12] MEDS: FAT EMULSION 20% INJ 250 ML (@10 mls/hr) IV-CENTRAL SCH (19:51)
[2018-01-12] MEDS: ZOLPIDEM TARTRATE 5 MG TAB PO PRN (19:53)
[2018-01-12] MEDS ORDERED: [UNRECOGNIZED DRUG - OTHER] IV-CENTRAL SCH ×5 (20:00)
[2018-01-12] MEDS ORDERED: SODIUM ACETATE IV-CENTRAL SCH ×10 (20:00)
[2018-01-12] MEDS ORDERED: FOLIC ACID IV-CENTRAL SCH ×5 (20:00)
[2018-01-12] MEDS ORDERED: FAT EMULSION 20% INJ 250 ML (Daily over 8 hours) IV-CENTRAL SCH (20:00)
[2018-01-12] MEDS ORDERED: [UNRECOGNIZED DRUG - OTHER] IV-CENTRAL SCH ×10 (20:00)
[2018-01-12] MEDS ORDERED: MULTIVITAMIN IV-CENTRAL SCH ×5 (20:00)
[2018-01-12] MEDS ORDERED: SODIUM CHLORIDE IV-CENTRAL SCH ×15 (20:00)
[2018-01-12] MEDS: diphenhydrAMINE HCL 50 MG/ML VIAL IV PRN (22:39)
[2018-01-12] MEDS: ALPRAZolam 0.5 MG TAB PO PRN (22:40)
[2018-01-13] VITALS (7 sets, daily range): BP systolic 109–136; BP diastolic 55–96; PULSE 106–114; RESP 16–19; TEMP 96.5–99.1; O2SAT 93–98
[2018-01-13] MEDS: metroNIDAZOLE 500 MG INJ 100 ML IV SCH ×3 (05:23→20:29)
[2018-01-13] MEDS: PCA - TOTAL MG MORPHINE DELIVERED PER SHIFT SCH ×3 (05:33→22:24)
[2018-01-13] MEDS: MORPHINE SULFATE 30 MG/30 ML PCA IV SCH ×2 (06:56→20:19)
[2018-01-13] MEDS: ALBUMIN 25% INJ 100 ML IV SCH (07:53)
[2018-01-13] MEDS: POTASSIUM CHLORIDE 20 MEQ CONTROLLED RELEASE TAB PO SCH ×2 (07:53→20:21)
[2018-01-13] MEDS: busPIRone HCL 5 MG TAB PO SCH ×2 (07:53→20:20)
[2018-01-13] MEDS: FUROSEMIDE 20 MG/2 ML VIAL IV PUSH SCH ×2 (07:54→17:14)
[2018-01-13] MEDS: SODIUM CHLORIDE 0.9% FLUSH 10 ML FLUSH IV FLUSH SCH ×3 (07:54→20:35)
[2018-01-13] MEDS: SILVER SULFADIAZINE/LIDOCAINE CREAM 60 GM JAR RECTAL SCH ×2 (07:54→20:35)
[2018-01-13] MEDS: ONDANSETRON HCL 4 MG/2 ML VIAL IV PUSH PRN (07:58)
[2018-01-13] MEDS: ALPRAZolam 0.5 MG TAB PO PRN (07:58)
[2018-01-13] MEDS: RESP: IPRATROPIUM 0.5 MG/2.5 ML NEB NEB PRN ×2 (08:16→15:47)
--- NOTE | 2018-01-13 10:52 | RADRPT ---
EXAM DATE/TIME: 01/13/2018 10:14 [place] COMPARISON: No previous studies available for comparison. INDICATIONS : Abdominal pain and distention. MEDICAL HISTORY : Chronic obstructive pulmonary disease. Carcinoma, rectal. SURGICAL HISTORY : Hysterectomy. Tonsillectomy. Colonoscopy. Colostomy. ENCOUNTER: Subsequent ACUITY: 1 week PAIN SCORE: 10/10 LOCATION: Bilateral Abdomen FINDINGS: Surgical sutures in the right abdomen with right upper quadrant and lower quadrant surgical drains in place. Mild diffuse distention of small bowel loops throughout the abdomen with multiple air-fluid l evels on the upright examination. Air is seen in the proximal colon although the distal colon appears largely decompressed. No pneumatosis or free air. No abnormal calcifications. Degenerative changes o f the lower lumbar spine. CONCLUSION: 1. Findings most consistent with adynamic ileus versus partial small bowel obstruction. Wolf Fletcher MD on January 13, 2018 at 10:47 Board Certified Radiologist. This report was verified electronically.
--- NOTE | 2018-01-13 11:28 | HHI.PR ---
Subjective Remarks C/R Surg POD #3 afebrile, VSS stoma min - LITTLE FLATUS wound draining less, DKUE pouched [place] suppl PO Objective - Vital Signs Date Time Temp Pulse Resp B/P (MAP) Pulse Ox O2 Delivery O2 Flow Rate FiO2 01/13/18 08:18 94 Nasal Cannula 3.00 01/13/18 08:00 99.1 106 17 123/79 (94) Result Diagram: 01/10/18 0805 01/10/18 0805 Objective Remarks PE alert Abd - soft, edema, stoma viable DUKE less, wound opened/packed - seed cleaner A/P Assessment and Plan Imp: incr wound care needs nutrition _TPN started watch I/O check Vijay Nelson MD Jan 13, 2018 11:28
--- NOTE | 2018-01-13 11:37 | PD.WCN.NOT ---
Wound Consult Description: Consult for NEW OSTOMY TEACHING of [facility] per Dr Ibrahim Communicated with: WALDEMAR Bowman Patient Recommendation: Change appliance every 5-7 days and PRN for leaks. - Empty pouch of effluent when 1/3-1/2 full. - Cleanse skin with water only. - Allow peristomal skin to dry prior to new wafer application. - Use skin prep if desired but allow to dry thoroughly prior to new wafer application. - Mold the 1 3/4" moldable wafer or cut the "cut to fit wafer" to fit stoma. - Ensure bottom of pouch is closed tightly to avoid leaks and odor. Additional Information: Patient seen on for ostomy assessment. Patient was tearful upon assessment this am stating that she went down for a procedure and they were rough with her and she is in pain from that experience. Patient states that she just got back in bed prior to fiction and nonfiction prose writer arrival. A mixed solares clear ensure was obtained as well as ice as requested, that was brought to patient bedside. Drain noted on right side abdomen was full of clear yellow drainage and emptied by fiction and nonfiction prose writer and left in bathroom for I&O's and communicated to WALDEMAR Bowman. Left side oh drain noted with sanguinous drainage not emptied by fiction and nonfiction prose writer. Patient states that dietary still sends her apple juice after telling them she cannot have it. She requested grape juice for her trays, and this was also communicated to WALDEMAR Bowman who contacted dietary regarding this. Patient abdomen is tight and rigid on her right side noted laterally to a visualized bruise. Midline incision is approximated with a staple that appears to have been removed. Call placed to Dr Gore regarding these findings, unknown if this is new or not. Ostomy Type: Colostomy Surgeon: Julio Cesar Ibrahim MD Date of Surgery: Jan 02, 2018 Complete: Starter kit (New starter kit sent out with moldable convexity appliances (order # [id number]) for minimally protruding stoma (<1cm) after sutures have dissolved), Rx (Left on chart. Stoma size requires use of 2 1/4" appliances until mucocutaneous junction is closed and sutures dissolved.), Other (Patient has cut to fit supplies in room from home,from previous admission , that she can go home with at discharge in her correct size.) Educated patient on: Food intake. Working with PT Additional information Patient seen on for ostomy assessment. Stoma is red, moist, non functioning at this time, however patient states that she had so much air in her pouch from her apple ensure this am. [facility]a [facility] Jan 13, 2018 11:37
[2018-01-13] MEDS: ALVIMOPAN 12 MG CAPSULE PO SCH ×2 (12:01→20:20)
[2018-01-13] MEDS: diphenhydrAMINE HCL 50 MG/ML VIAL IV PRN ×2 (12:01→20:42)
[2018-01-13] MEDS: ZOLPIDEM TARTRATE 5 MG TAB PO PRN (20:42)
[2018-01-13] MEDS: SODIUM CHLORIDE IV-CENTRAL SCH ×10 (22:28)
[2018-01-13] MEDS: [UNRECOGNIZED DRUG - OTHER] IV-CENTRAL SCH ×10 (22:28)
[2018-01-13] MEDS: SODIUM ACETATE IV-CENTRAL SCH ×10 (22:28)
[2018-01-13] MEDS: FAT EMULSION 20% INJ 250 ML (@10 mls/hr) IV-CENTRAL SCH (22:29)
[2018-01-14] VITALS (8 sets, daily range): BP systolic 109–148; BP diastolic 57–74; PULSE 99–120; RESP 16–20; TEMP 97.2–99; O2SAT 90–98
[2018-01-14] MEDS: metroNIDAZOLE 500 MG INJ 100 ML IV SCH ×2 (05:26→15:51)
[2018-01-14] MEDS: PCA - TOTAL MG MORPHINE DELIVERED PER SHIFT SCH ×3 (05:59→22:00)
[2018-01-14] MEDS: LACTATED RING IV SCH ×2 (05:59→20:00)
[2018-01-14] MEDS: DEXTROSE 5% IV SCH ×2 (05:59→20:00)
[2018-01-14] MEDS: POTASSIUM CHLORIDE IV SCH ×2 (05:59→20:00)
[2018-01-14] MEDS: SILVER SULFADIAZINE/LIDOCAINE CREAM 60 GM JAR RECTAL SCH ×2 (09:00→21:01)
[2018-01-14] MEDS: RESP: IPRATROPIUM 0.5 MG/2.5 ML NEB NEB PRN (09:45)
[2018-01-14] MEDS: ALVIMOPAN 12 MG CAPSULE PO SCH ×2 (09:45→20:37)
[2018-01-14] MEDS: busPIRone HCL 5 MG TAB PO SCH ×2 (09:45→20:37)
[2018-01-14] MEDS: ALBUMIN 25% INJ 100 ML IV SCH (09:46)
[2018-01-14] MEDS: POTASSIUM CHLORIDE 20 MEQ CONTROLLED RELEASE TAB PO SCH ×2 (09:46→20:37)
[2018-01-14] MEDS: SODIUM CHLORIDE 0.9% FLUSH 10 ML FLUSH IV FLUSH SCH ×2 (09:47→20:42)
[2018-01-14 09:48] LABS: AUTOMATED NEUTROPHIL # 7.9 TH/MM3 (1.8-7.7); BASOPHIL % 0.3 % (0.0-2.0); EOSINOPHIL # 0.2 TH/MM3 (0-0.4); EOSINOPHIL % 1.7 % (0.0-4.0); HEMATOCRIT 24.1 % (35.0-46.0); HEMOGLOBIN 8.4 GM/DL (11.6-15.3); LYMPHOCYTE # 0.5 TH/MM3 (1.0-4.8); MEAN CELL VOLUME 115.2 FL (80.0-100.0); MEAN CORPUSCULAR HEMOGLOBIN 39.9 PG (27.0-34.0); MEAN CORPUSCULAR HGB CONC 34.7 % (32.0-36.0); MEAN PLATELET VOLUME 8.8 FL (7.0-11.0); MONO % 5.2 % (0.0-8.0); MONOCYTE # 0.5 TH/MM3 (0-0.9); NEUT % 87.8 % (16.0-70.0); PLATELET COUNT 150 TH/MM3 (150-450); RED CELL DISTRIBUTION WIDTH 20.5 % (11.6-17.2)
[2018-01-14] MEDS: MORPHINE SULFATE 30 MG/30 ML PCA IV SCH ×2 (09:49→22:18)
--- NOTE | 2018-01-14 10:10 | PD.WCN.NOT ---
Wound Consult Description: Consult for NEW OSTOMY TEACHING of llq per Dr Ibrahim Communicated with: Patient Dr Ritter Pitt, RN Recommendation: Change appliance every 5-7 days and PRN for leaks. - Empty pouch of effluent when 1/3-1/2 full. - Cleanse skin with water only. - Allow peristomal skin to dry prior to new wafer application. - Use skin prep if desired but allow to dry thoroughly prior to new wafer application. - Mold the 2 1/4" moldable wafer or cut the "cut to fit wafer" to fit stoma. - Ensure bottom of pouch is closed tightly to avoid leaks and odor. Additional Information: Patient seen [facility] for ostomy assessment and pouching system change. Patient is noted with softer abdomen today with minimal erythema noted to midline incision staple line. There was a dressing noted over middle portion of the midline incision that was partially covering the stoma appliance that was removed from wafer by junior copywriter. The patient then removed the packing without instruction to do so. WALDEMAR Pitt was asked when the dressing and packing was done last and how often the dressings are to be changed. Sweetie RN stated that this is her first day with her and she doesn't know, the patient should know, and then turned to the patient and asked the patient who stated that it was sometime yesterday or last night, she couldn't remember. Wax Cutter left the room at that point. Ostomy Type: Colostomy Surgeon: Julio Cesar Ibrahim MD Date of Surgery: Jan 02, 2018 Complete: Starter kit (New starter kit sent out with moldable convexity appliances (order # [id number]) for minimally protruding stoma (<1cm) after sutures have dissolved), Rx (Left on chart. Stoma size requires use of 2 1/4" appliances until mucocutaneous junction is closed and sutures dissolved.), Other (Patient has cut to fit supplies in room from home,from previous admission , that she can go home with at discharge in her correct size.) Educated patient on: When and how to remove ostomy appliance How often to empty pouch of effluent Cleansing peristomal skin Skin prep prior to wafer application Cutting or molding wafer prior to application Closing pouch to prevent leaks Stoma color Output of stoma When to seek medical attention Additional information Patient seen on [facility] [place] for ostomy assessment, teaching, and appliance change. Appliance removed from left side abdomen by junior copywriter. Peristomal skin cleansed with NS and gauze and pat dry. Cavilon spray was used to prep skin prior to wafer application. Once peristomal skin was dry, 2 1/4" moldable wafer was placed over and around stoma with low pressure adaptor for easy pouch attachment. Pouch was then secured to flange and closed at the bottom. 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 Ros[facility] Jan 14, 2018 10:10
[2018-01-14 12:29] LABS: BICARBONATE 28.7 MEQ/L (21.0-32.0); CALCIUM 7.7 MG/DL (8.5-10.1); CREATININE 0.34 MG/DL (0.50-1.00)
[2018-01-14] MEDS: FUROSEMIDE 20 MG/2 ML VIAL IV PUSH SCH ×2 (15:31→18:00)
--- NOTE | 2018-01-14 17:25 | HHI.PR ---
Subjective Remarks C/R Surg POD #4 afebrile, VSS stoma mod stool wound draining less, DUKE pouched catalina suppl PO, incr appet Objective - Vital Signs Date Time Temp Pulse Resp B/P (MAP) Pulse Ox O2 Delivery O2 Flow Rate FiO2 01/14/18 16:00 97.3 120 16 136/60 (85) 90 01/14/18 09:54 Nasal Cannula 3.00 Result Diagram: 01/14/18 0930 01/14/18 1130 Objective Remarks PE alert Abd - soft, edema less, stoma viable DUKE less, wound opened/packed - can cleaner A/P Assessment and Plan Imp: incr wound care needs nutrition _TPN started, raised rate watch I/O adv diet Vijay Gore MD Jan 14, 2018 17:25
[2018-01-14] MEDS: ALPRAZolam 0.5 MG TAB PO PRN (19:03)
[2018-01-14] MEDS: SODIUM CHLORIDE IV-CENTRAL SCH ×10 (20:38)
[2018-01-14] MEDS: [UNRECOGNIZED DRUG - OTHER] IV-CENTRAL SCH ×10 (20:38)
[2018-01-14] MEDS: SODIUM ACETATE IV-CENTRAL SCH ×10 (20:38)
[2018-01-14] MEDS: FAT EMULSION 20% INJ 250 ML (@10 mls/hr) IV-CENTRAL SCH (20:41)
[2018-01-15] VITALS (8 sets, daily range): BP systolic 110–142; BP diastolic 61–82; PULSE 100–120; RESP 16–19; TEMP 98.2–100; O2SAT 91–98
[2018-01-15] MEDS: diphenhydrAMINE HCL 50 MG/ML VIAL IV PRN ×3 (00:44→17:04)
[2018-01-15] MEDS: PCA - TOTAL MG MORPHINE DELIVERED PER SHIFT SCH ×2 (06:00→22:00)
[2018-01-15] MEDS: FUROSEMIDE 20 MG/2 ML VIAL IV PUSH SCH ×2 (09:00→17:08)
[2018-01-15] MEDS: POTASSIUM CHLORIDE 20 MEQ CONTROLLED RELEASE TAB PO SCH ×2 (09:45→20:22)
[2018-01-15] MEDS: ALBUMIN 25% INJ 100 ML IV SCH (09:45)
[2018-01-15] MEDS: busPIRone HCL 5 MG TAB PO SCH ×2 (09:46→20:21)
[2018-01-15] MEDS: ALVIMOPAN 12 MG CAPSULE PO SCH ×2 (09:46→20:22)
[2018-01-15] MEDS: ALPRAZolam 0.5 MG TAB PO PRN ×2 (09:46→17:04)
--- NOTE | 2018-01-15 09:51 | HHI.PR ---
Subjective Remarks No N or V. Stooling. Remains on TPN Objective Vital Signs Date Time Temp Pulse Resp B/P (MAP) Pulse Ox O2 Delivery O2 Flow Rate FiO2 01/15/18 06:00 18 01/15/18 05:00 98.2 108 18 126/82 (97) 94 01/15/18 00:00 99.5 112 18 113/71 (85) 93 01/14/18 22:18 18 01/14/18 22:00 18 01/14/18 20:31 18 01/14/18 16:00 97.3 120 16 136/60 (85) 90 01/14/18 14:00 20 01/14/18 12:00 98.7 110 16 110/57 (74) 90 01/14/18 09:54 97 Nasal Cannula 3.00 01/14/18 09:49 20 I/O 01/14/18 01/14/18 01/14/18 01/15/18 01/15/18 01/15/18 07:00 15:00 23:00 07:00 15:00 23:00 Intake Total 1636 ml 2422 ml 1085.5 ml Output Total 3380 ml 1440 ml 1800 ml 1050 ml Balance -1744 ml 982 ml -714.5 ml -1050 ml Intake Oral 480 ml 1300 ml 240 ml IV Total 1156 ml 1122 ml 845.5 ml Output Urine Total 1800 ml 500 ml 900 ml 850 ml Stool Total 1500 ml 700 ml 800 ml 200 ml Drainage Total 80 ml 240 ml 100 ml # Voids 9 Result Diagram: 01/14/18 0930 01/14/18 1130 Objective Remarks VS-S Abd: flat, non distended. Assessment and Plan Assessment and Plan Stable. Slowly improving Continue to encourage PO Julio Cesar Ibrahim MD Jan 15, 2018 09:51
[2018-01-15] MEDS: RESP: IPRATROPIUM 0.5 MG/2.5 ML NEB NEB PRN ×3 (10:06→20:53)
[2018-01-15] MEDS: MORPHINE SULFATE 30 MG/30 ML PCA IV SCH (10:54)
[2018-01-15] MEDS: ALBUTEROL SULFATE 90 MCG/ACT HFA 8 GM INHALER INH PRN (16:37)
[2018-01-15] MEDS: SODIUM CHLORIDE 0.9% FLUSH 10 ML FLUSH IV FLUSH SCH ×4 (16:38→20:22)
[2018-01-15] MEDS: SILVER SULFADIAZINE/LIDOCAINE CREAM 60 GM JAR RECTAL SCH ×2 (16:40→20:24)
[2018-01-15] MEDS: ZOLPIDEM TARTRATE 5 MG TAB PO PRN (20:22)
[2018-01-15] MEDS: [UNRECOGNIZED DRUG - OTHER] IV-CENTRAL SCH ×10 (20:23)
[2018-01-15] MEDS: POTASSIUM CHLORIDE IV SCH (20:23)
[2018-01-15] MEDS: SODIUM CHLORIDE IV-CENTRAL SCH ×10 (20:23)
[2018-01-15] MEDS: DEXTROSE 5% IV SCH (20:23)
[2018-01-15] MEDS: SODIUM ACETATE IV-CENTRAL SCH ×10 (20:23)
[2018-01-15] MEDS: FAT EMULSION 20% INJ 250 ML (@10 mls/hr) IV-CENTRAL SCH (20:23)
[2018-01-15] MEDS: LACTATED RING IV SCH (20:23)
[2018-01-16] VITALS (7 sets, daily range): BP systolic 116–164; BP diastolic 68–81; PULSE 86–114; RESP 17–20; TEMP 96.5–98.1; O2SAT 91–96
[2018-01-16] MEDS: ALPRAZolam 0.5 MG TAB PO PRN (02:18)
[2018-01-16] MEDS: diphenhydrAMINE HCL 50 MG/ML VIAL IV PRN (02:18)
[2018-01-16] MEDS: MORPHINE SULFATE 30 MG/30 ML PCA IV SCH ×2 (02:27→16:30)
[2018-01-16] MEDS: PCA - TOTAL MG MORPHINE DELIVERED PER SHIFT SCH ×3 (05:43→21:21)
[2018-01-16] MEDS: ALBUMIN 25% INJ 100 ML IV SCH (09:23)
[2018-01-16] MEDS: ALVIMOPAN 12 MG CAPSULE PO SCH ×2 (09:24→21:20)
[2018-01-16] MEDS: FUROSEMIDE 20 MG/2 ML VIAL IV PUSH SCH ×2 (09:24→16:28)
[2018-01-16] MEDS: POTASSIUM CHLORIDE 20 MEQ CONTROLLED RELEASE TAB PO SCH ×2 (09:24→21:20)
[2018-01-16] MEDS: busPIRone HCL 5 MG TAB PO SCH ×2 (09:25→21:20)
[2018-01-16] MEDS: SILVER SULFADIAZINE/LIDOCAINE CREAM 60 GM JAR RECTAL SCH ×2 (09:26→21:19)
[2018-01-16] MEDS: SODIUM CHLORIDE 0.9% FLUSH 10 ML FLUSH IV FLUSH SCH ×3 (09:27→21:00)
--- NOTE | 2018-01-16 10:05 | HHI.PR ---
Subjective Remarks No N or V. Stooling large amounts. Diuresing large amounts. Will check Labs Objective Vital Signs Date Time Temp Pulse Resp B/P (MAP) Pulse Ox O2 Delivery O2 Flow Rate FiO2 01/16/18 08:00 97.9 107 20 164/81 (108) 91 01/16/18 05:43 17 01/16/18 05:01 97.8 101 17 116/81 (93) 96 01/16/18 02:32 17 01/16/18 02:27 17 01/16/18 00:00 97.6 106 17 116/70 (85) 96 01/15/18 22:00 17 01/15/18 20:54 96 Nasal Cannula 3.00 01/15/18 20:30 Nasal Cannula 2.00 97 01/15/18 20:00 100.0 100 16 137/63 (87) 98 01/15/18 16:00 99.7 109 19 121/72 (88) 92 01/15/18 12:00 98.7 109 17 110/61 (77) 94 01/15/18 10:54 18 I/O 01/15/18 01/15/18 01/15/18 01/16/18 01/16/18 01/16/18 07:00 15:00 23:00 07:00 15:00 23:00 Intake Total 1085.5 ml 100 ml 1868 ml 766.2 ml Output Total 1800 ml 1260 ml 1865 ml 1700 ml Balance -714.5 ml -1160 ml 3 ml -933.8 ml Intake Oral 240 ml 500 ml 760 ml IV Total 845.5 ml 100 ml 1368 ml 6.2 ml Output Urine Total 900 ml 850 ml 1450 ml 1100 ml Stool Total 800 ml 200 ml 325 ml 520 ml Drainage Total 100 ml 210 ml 90 ml 80 ml Result Diagram: 01/14/18 0930 01/14/18 1130 Objective Remarks VS-S Abd: flat, non distended.Soft Assessment and Plan Assessment and Plan Stable. Slowly improving Continue to encourage PO. Placement Julio Cesar Ibrahim MD Jan 16, 2018 10:05
[2018-01-16] MEDS: POTASSIUM CHLORIDE IV SCH (20:00)
[2018-01-16] MEDS: DEXTROSE 5% IV SCH (20:00)
[2018-01-16] MEDS: LACTATED RING IV SCH (20:00)
[2018-01-16] MEDS: FAT EMULSION 20% INJ 250 ML (@10 mls/hr) IV-CENTRAL SCH (21:18)
[2018-01-16] MEDS: [UNRECOGNIZED DRUG - OTHER] IV-CENTRAL SCH ×10 (21:19)
[2018-01-16] MEDS: SODIUM ACETATE IV-CENTRAL SCH ×10 (21:19)
[2018-01-16] MEDS: SODIUM CHLORIDE IV-CENTRAL SCH ×10 (21:19)
[2018-01-16] MEDS: RESP: IPRATROPIUM 0.5 MG/2.5 ML NEB NEB PRN (21:30)
[2018-01-16] MEDS: ZOLPIDEM TARTRATE 5 MG TAB PO PRN (21:39)
[2018-01-17] VITALS (9 sets, daily range): BP systolic 110–141; BP diastolic 57–72; PULSE 64–115; RESP 17–20; TEMP 96.8–98.6; O2SAT 95–100
[2018-01-17] MEDS: PCA - TOTAL MG MORPHINE DELIVERED PER SHIFT SCH ×3 (04:35→22:08)
[2018-01-17] MEDS: LACTATED RING IV SCH (06:06)
[2018-01-17] MEDS: DEXTROSE 5% IV SCH (06:06)
[2018-01-17] MEDS: POTASSIUM CHLORIDE IV SCH (06:06)
[2018-01-17] MEDS: MORPHINE SULFATE 30 MG/30 ML PCA IV SCH ×2 (06:09→18:22)
[2018-01-17 06:22] LABS: AUTOMATED NEUTROPHIL # 7.1 TH/MM3 (1.8-7.7); BASOPHIL # 0.1 TH/MM3 (0-0.2); BASOPHIL % 1.1 % (0.0-2.0); EOSINOPHIL # 0.3 TH/MM3 (0-0.4); EOSINOPHIL % 3.9 % (0.0-4.0); HEMATOCRIT 23.4 % (35.0-46.0); LYMPHOCYTE # 0.5 TH/MM3 (1.0-4.8); MEAN CELL VOLUME 101.6 FL (80.0-100.0); MEAN CORPUSCULAR HEMOGLOBIN 34.6 PG (27.0-34.0); MEAN PLATELET VOLUME 8.7 FL (7.0-11.0); MONO % 7.3 % (0.0-8.0); MONOCYTE # 0.6 TH/MM3 (0-0.9); NEUT % 81.7 % (16.0-70.0); PLATELET COUNT 243 TH/MM3 (150-450); RED CELL DISTRIBUTION WIDTH 19.3 % (11.6-17.2); WHITE BLOOD COUNT 8.7 TH/MM3 (4.0-11.0)
[2018-01-17 06:47] LABS: BICARBONATE 28.4 MEQ/L (21.0-32.0); CALCIUM 7.7 MG/DL (8.5-10.1); CREATININE 0.21 MG/DL (0.50-1.00)
[2018-01-17] MEDS: SODIUM CHLORIDE 0.9% FLUSH 10 ML FLUSH IV FLUSH SCH ×3 (09:00→21:42)
[2018-01-17] MEDS: POTASSIUM CHLORIDE 20 MEQ CONTROLLED RELEASE TAB PO SCH ×2 (09:45→21:41)
[2018-01-17] MEDS: ALBUMIN 25% INJ 100 ML IV SCH (09:47)
[2018-01-17] MEDS: busPIRone HCL 5 MG TAB PO SCH ×2 (09:48→21:41)
[2018-01-17] MEDS: FUROSEMIDE 20 MG/2 ML VIAL IV PUSH SCH ×2 (09:54→18:00)
[2018-01-17] MEDS: SILVER SULFADIAZINE/LIDOCAINE CREAM 60 GM JAR RECTAL SCH ×2 (09:59→21:42)
[2018-01-17] MEDS: ALVIMOPAN 12 MG CAPSULE PO SCH ×2 (10:01→21:41)
[2018-01-17] MEDS: ALBUTEROL SULFATE 90 MCG/ACT HFA 8 GM INHALER INH PRN (10:28)
--- NOTE | 2018-01-17 15:58 | PD.WCN.NOT ---
Wound Consult Description: Consult for NEW OSTOMY TEACHING of llq per Dr Ibrahim Communicated with: WALDEMAR Harrell Patient Recommendation: Change appliance every 5-7 days and PRN for leaks. - Empty pouch of effluent when 1/3-1/2 full. - Cleanse skin with water only. - Allow peristomal skin to dry prior to new wafer application. - Use skin prep if desired but allow to dry thoroughly prior to new wafer application. - Mold the 2 1/4" moldable wafer or cut the "cut to fit wafer" to fit stoma. - Ensure bottom of pouch is closed tightly to avoid leaks and odor. Additional Information: Patient seen on for ostomy assessment. Ostomy Type: Colostomy Surgeon: Julio Cesar Ibrahim MD Date of Surgery: Jan 02, 2018 Complete: Starter kit (New starter kit sent out with moldable convexity appliances (order # [id number]) for minimally protruding stoma (<1cm) after sutures have dissolved), Rx (Left on chart. Stoma size requires use of 2 1/4" appliances until mucocutaneous junction is closed and sutures dissolved.), Other (Patient has cut to fit supplies in room from home,from previous admission , that she can go home with at discharge in her correct size.) Educated patient on: Emptying pouch of effluent. Ensuring the pouch is closed to prevent leaks. Changing the wafer every 5-7 days and PRN before leaks occur. Staying hydrated and eating solid foods. Ambulating. When to seek medical attention. Additional information Patient states that she has had a lot of gas today due to her IBS. There is ~ 50ml of brown liquid effluent noted in pouch that was not emptied at this time. Stoma is red, moist, protruding, functioning with brown liquid effluent. Wafer and pouch are intact and noted without leaks. Patient states that she has not had a breathing treatment today, could sign writer letterer or painter notify a nurse outside of her room for her. Bryanna Gray RN was notified. [facility]seca [facility] Jan 17, 2018 15:58
[2018-01-17] MEDS: RESP: IPRATROPIUM 0.5 MG/2.5 ML NEB NEB PRN (16:53)
--- NOTE | 2018-01-17 21:20 | HHI.PR ---
Subjective Remarks C/R Surg POD #4 afebrile, VSS stoma mod stool wound draining less, DUKE less catalina suppl PO, incr appet decr TPN Objective - Vital Signs Date Time Temp Pulse Resp B/P (MAP) Pulse Ox O2 Delivery O2 Flow Rate FiO2 01/17/18 18:27 18 01/17/18 16:00 97.9 91 127/58 (81) 100 01/17/18 08:50 Nasal Cannula 2.00 01/15/18 20:30 97 Result Diagram: 01/17/18 0530 01/17/18 0530 Objective Remarks PE alert Abd - soft, edema less, stoma viable - functioning DUKE less, wound opened/packed - glass mould cleaner A/P Assessment and Plan Imp: incr wound care needs nutrition _TPN started, lower rate watch I/O adv diet poss rehab Vijay Gore MD Jan 17, 2018 21:19
[2018-01-17] MEDS: ZOLPIDEM TARTRATE 5 MG TAB PO PRN (21:41)
[2018-01-17] MEDS: FAT EMULSION 20% INJ 250 ML (@10 mls/hr) IV-CENTRAL SCH (21:45)
[2018-01-17] MEDS: [UNRECOGNIZED DRUG - OTHER] IV-CENTRAL SCH ×10 (21:46)
[2018-01-17] MEDS: SODIUM CHLORIDE IV-CENTRAL SCH ×10 (21:46)
[2018-01-17] MEDS: SODIUM ACETATE IV-CENTRAL SCH ×10 (21:46)
[2018-01-18] VITALS (9 sets, daily range): BP systolic 105–120; BP diastolic 56–65; PULSE 102–126; RESP 16–20; TEMP 97.3–100; O2SAT 92–98
[2018-01-18] MEDS: PCA - TOTAL MG MORPHINE DELIVERED PER SHIFT SCH ×3 (06:06→21:03)
[2018-01-18] MEDS: MORPHINE SULFATE 30 MG/30 ML PCA IV SCH (06:52)
[2018-01-18] MEDS: SODIUM CHLORIDE 0.9% FLUSH 10 ML FLUSH IV FLUSH SCH ×3 (09:00→21:00)
[2018-01-18] MEDS: SILVER SULFADIAZINE/LIDOCAINE CREAM 60 GM JAR RECTAL SCH ×2 (09:02→21:02)
[2018-01-18] MEDS: ALBUTEROL SULFATE 90 MCG/ACT HFA 8 GM INHALER INH PRN (09:02)
[2018-01-18] MEDS: FUROSEMIDE 20 MG/2 ML VIAL IV PUSH SCH ×2 (09:03→17:24)
[2018-01-18] MEDS: busPIRone HCL 5 MG TAB PO SCH ×2 (09:04→20:59)
[2018-01-18] MEDS: ALVIMOPAN 12 MG CAPSULE PO SCH ×2 (09:04→20:59)
[2018-01-18] MEDS: POTASSIUM CHLORIDE 20 MEQ CONTROLLED RELEASE TAB PO SCH ×2 (09:04→20:59)
[2018-01-18] MEDS: SODIUM ACETATE IV-CENTRAL SCH ×20 (13:41→15:01)
[2018-01-18] MEDS: [UNRECOGNIZED DRUG - OTHER] IV-CENTRAL SCH ×20 (13:41→15:01)
[2018-01-18] MEDS: SODIUM CHLORIDE IV-CENTRAL SCH ×20 (13:41→15:01)
[2018-01-18] MEDS: POTASSIUM CHLORIDE IV SCH (15:12)
[2018-01-18] MEDS: LACTATED RING IV SCH (15:12)
[2018-01-18] MEDS: DEXTROSE 5% IV SCH (15:12)
[2018-01-18] MEDS: ZOLPIDEM TARTRATE 5 MG TAB PO PRN (21:00)
[2018-01-19] VITALS: BP 105/59; PULSE 98; RESP 18; TEMP 99.2; O2SAT 96
[2018-01-19] MEDS: MORPHINE SULFATE 30 MG/30 ML PCA IV SCH (03:54)
[2018-01-19] MEDS: PCA - TOTAL MG MORPHINE DELIVERED PER SHIFT SCH ×2 (05:45→14:00)
[2018-01-19 08:00] VITALS: BP 128/66; PULSE 107; RESP 17; TEMP 97.8; O2SAT 97
[2018-01-19] MEDS: ACETAMINOPHEN/HYDROcodone 325 MG/7.5 MG TAB PO PRN ×3 (08:39→20:59)
[2018-01-19] MEDS: busPIRone HCL 5 MG TAB PO SCH ×2 (08:41→19:39)
[2018-01-19] MEDS: ALVIMOPAN 12 MG CAPSULE PO SCH ×2 (08:43→19:38)
[2018-01-19] MEDS: POTASSIUM CHLORIDE 20 MEQ CONTROLLED RELEASE TAB PO SCH ×2 (08:43→19:38)
[2018-01-19] MEDS: FUROSEMIDE 20 MG/2 ML VIAL IV PUSH SCH (08:43)
[2018-01-19] MEDS: SILVER SULFADIAZINE/LIDOCAINE CREAM 60 GM JAR RECTAL SCH ×2 (08:45→19:39)
[2018-01-19] MEDS: SODIUM CHLORIDE 0.9% FLUSH 10 ML FLUSH IV FLUSH SCH ×3 (08:45→19:40)
[2018-01-19 12:00] VITALS: BP 116/59; PULSE 96; RESP 18; TEMP 96; O2SAT 98
[2018-01-19 16:00] VITALS: BP 139/65; PULSE 98; RESP 17; TEMP 96.4; O2SAT 97
[2018-01-19] MEDS: ZOLPIDEM TARTRATE 5 MG TAB PO PRN (19:38)
[2018-01-19] MEDS: POTASSIUM CHLORIDE IV SCH (19:39)
[2018-01-19] MEDS: LACTATED RING IV SCH (19:39)
[2018-01-19] MEDS: DEXTROSE 5% IV SCH (19:39)
[2018-01-19 20:00] VITALS: BP 112/64; PULSE 96; RESP 20; TEMP 97.6; O2SAT 98
--- NOTE | 2018-01-19 22:23 | HHI.PR ---
Subjective Remarks C/R Surg POD afebrile, VSS stoma mod stool wound draining less, DUKE less - dc'd catalina suppl PO, incr appet decr TPN dc plans Objective - Vital Signs Date Time Temp Pulse Resp B/P (MAP) Pulse Ox O2 Delivery O2 Flow Rate FiO2 01/19/18 16:00 96.4 98 17 139/65 (89) 97 01/18/18 08:50 Nasal Cannula 2.00 01/15/18 20:30 97 Result Diagram: 01/17/18 0530 01/17/18 0530 Objective Remarks PE alert Abd - soft, stoma viable - functioning DUKE less, wound opened/packed - hat cleaner A/P Assessment and Plan Imp: incr wound care needs nutrition -suppl PO watch I/O adv diet poss rehab Vijay Gore MD Jan 19, 2018 22:23
[2018-01-20] MEDS: diphenhydrAMINE HCL 50 MG/ML VIAL IV PRN ×2 (05:56→14:19)
--- NOTE | 2018-01-20 07:52 | HHI.PR ---
Subjective Remarks C/R Surg POD afebrile, VSS stoma mod stool - leaking wound draining less, DUKE less - dc'd catalina suppl PO, incr appet decr TPN dc plans Objective - Vital Signs Date Time Temp Pulse Resp B/P (MAP) Pulse Ox O2 Delivery O2 Flow Rate FiO2 01/20/18 00:56 20 01/19/18 20:00 97.6 96 112/64 (80) 98 01/18/18 08:50 Nasal Cannula 2.00 Result Diagram: 01/17/1852901/17/1830 Objective Remarks PE alert Abd - soft, stoma viable - functioning wound stable A/P Assessment and Plan Imp: incr wound care needs nutrition -suppl PO watch I/O adv diet poss rehab Vijay Gore MD Jan 20, 2018 07:52
[2018-01-20 08:00] VITALS: BP 106/65; PULSE 95; RESP 17; TEMP 97.5; O2SAT 98
[2018-01-20] MEDS: SODIUM CHLORIDE 0.9% FLUSH 10 ML FLUSH IV FLUSH SCH ×3 (08:41→20:46)
[2018-01-20] MEDS: busPIRone HCL 5 MG TAB PO SCH ×2 (08:45→20:45)
[2018-01-20] MEDS: POTASSIUM CHLORIDE 20 MEQ CONTROLLED RELEASE TAB PO SCH ×2 (08:45→20:46)
[2018-01-20] MEDS: FUROSEMIDE 20 MG/2 ML VIAL IV PUSH SCH (08:46)
[2018-01-20] MEDS: SILVER SULFADIAZINE/LIDOCAINE CREAM 60 GM JAR RECTAL SCH ×2 (08:47→20:46)
[2018-01-20] MEDS: LOPERAMIDE HCL 2 MG CAP PO SCH ×3 (08:50→20:45)
[2018-01-20 12:00] VITALS: BP 123/60; PULSE 104; RESP 16; TEMP 96.2; O2SAT 99
[2018-01-20] MEDS: ACETAMINOPHEN/HYDROcodone 325 MG/7.5 MG TAB PO PRN ×2 (12:37→18:33)
[2018-01-20 16:00] VITALS: BP 115/67; PULSE 95; RESP 17; TEMP 97.1; O2SAT 98
--- NOTE | 2018-01-20 17:40 | PD.WCN.NOT ---
Wound Consult Description: Consult for NEW OSTOMY TEACHING of llq per Dr Ibrahim Communicated with: Patient Brianna, RN Dr Gore Recommendation: Wound VAC application to midline incision with Vaseline Gauze in base of wound over sutures Change M-W-F Settings @125mmHg Low Continuous Suction Additional Information: Patient seen on for wound evaluation. Bordered gauze and packing removed from midline incision to reveal a post surgical un-approximated wound margin measuring 3.3cm x 2cm x 1.5cm with 3 sutures noted in base of wound bed. Wound margins are sharp and open. [place] noted superiorly and distally to wound bed with 2 open areas noted in between tr with scant serous drainage measuring ~1cm x ~0.5cm x ~1cm. Wounds were packed with Maxorb Extra AG, covered with gauze, and secured with bordered gauze dressing dated today, until orders for wound VAC placement can be obtained for placement tomorrow by Wound Care Team. Ostomy appliance was changed during assessment. Ostomy Type: Colostomy Surgeon: Julio Cesar Ibrahim MD Date of Surgery: Jan 02, 2018 Complete: Starter kit (New starter kit sent out with moldable convexity appliances (order # [id number]) for minimally protruding stoma (<1cm) after sutures have dissolved), Rx (Left on chart. Stoma size requires use of 2 1/4" appliances until mucocutaneous junction is closed and sutures dissolved.), Other (Patient has cut to fit supplies in room from home,from previous admission , that she can go home with at discharge in her correct size.) Educated patient on: Possible wound VAC application tomorrow. Additional information Stoma is oval, red, even with abdomen, functioning, viable. Mucocutaneous junction is noted with sutures in place circumferentially. Peristomal skin denuded and cleansed before skin prepping with Cavilon spray no sting. Ostomy one piece appliance changed. Roselyn Fonseca [facility] Jan 20, 2018 17:40
[2018-01-20 20:00] VITALS: BP 140/67; PULSE 93; RESP 20; TEMP 97.5; O2SAT 97
[2018-01-20] MEDS: POTASSIUM CHLORIDE IV SCH (20:00)
[2018-01-20] MEDS: LACTATED RING IV SCH (20:00)
[2018-01-20] MEDS: DEXTROSE 5% IV SCH (20:00)
[2018-01-21] VITALS: BP 119/58; PULSE 92; RESP 20; TEMP 96.9; O2SAT 98
[2018-01-21] MEDS: ACETAMINOPHEN/HYDROcodone 325 MG/7.5 MG TAB PO PRN ×4 (00:53→17:58)
[2018-01-21] MEDS: LOPERAMIDE HCL 2 MG CAP PO SCH ×3 (03:00→14:49)
[2018-01-21] MEDS: diphenhydrAMINE HCL 50 MG/ML VIAL IV PRN ×2 (06:30)
[2018-01-21 08:00] VITALS: BP 118/64; PULSE 90; RESP 17; TEMP 97.1; O2SAT 98
[2018-01-21] MEDS: FUROSEMIDE 20 MG/2 ML VIAL IV PUSH SCH (08:45)
[2018-01-21] MEDS: SODIUM CHLORIDE 0.9% FLUSH 10 ML FLUSH IV FLUSH SCH ×2 (08:45)
[2018-01-21] MEDS: busPIRone HCL 5 MG TAB PO SCH (08:46)
[2018-01-21] MEDS: POTASSIUM CHLORIDE 20 MEQ CONTROLLED RELEASE TAB PO SCH (08:47)
[2018-01-21] MEDS: SILVER SULFADIAZINE/LIDOCAINE CREAM 60 GM JAR RECTAL SCH (08:48)
[2018-01-21 12:00] VITALS: BP 118/59; PULSE 94; RESP 17; TEMP 98.1; O2SAT 98
[2018-01-21 16:00] VITALS: BP 112/56; PULSE 98; RESP 17; TEMP 97.3; O2SAT 98
[2018-01-21] MEDS ORDERED: HYDR-3580 PO (18:58)
--- NOTE | 2018-01-21 22:39 | HHI.PR ---
Subjective Remarks C/R Surg POD afebrile, VSS stoma less stool wound draining less, UDKE less - dc'd catalina suppl PO, incr appet decr TPN dc plans Objective - Vital Signs Date Time Temp Pulse Resp B/P (MAP) Pulse Ox O2 Delivery O2 Flow Rate FiO2 01/21/18 16:00 97.3 98 17 112/56 (74) 98 01/18/18 08:50 Nasal Cannula 2.00 Result Diagram: 01/17/18 0530 01/17/18 0530 Objective Remarks PE alert Abd - soft, stoma viable - functioning, less output wound stable A/P Assessment and Plan Imp: incr wound care needs nutrition -suppl PO watch I/O adv diet poss rehab Vijay Gore MD Jan 21, 2018 22:39
== END 2018-01-21 20:53 | DRG 330 ==
LOC: NEPE 02:33 → NEDA 03:50 → HPAC 05:37 → N03B 08:38 → N07A 01-01 21:02
PROVIDERS: ADMIT Colon & Rectal Surgery; ATTEND Colon & Rectal Surgery
PROC: 0DBG0ZZ Excision of Left Large Intestine, Open Approach (ICD-10-PCS; 2017-12-31)
PROC: 0DB80ZZ Excision of Small Intestine, Open Approach (ICD-10-PCS; principal; 2017-12-31 05:16)
PROC: 0K8 Muscles, Division (ICD-10-PCS; 2018-01-09)
PROC: 0K8 Muscles, Division (ICD-10-PCS; 2018-01-09)
PROC: 0JX80ZZ Transfer Abdomen Subcutaneous Tissue and Fascia, Open Approach (ICD-10-PCS; 2018-01-09)
PROC: 0WQF0ZZ Repair Abdominal Wall, Open Approach (ICD-10-PCS; 2018-01-09)
PROC: 30233N1 Transfusion of Nonautologous Red Blood Cells into Peripheral Vein, Percutaneous Approach (ICD-10-PCS; 2018-01-09)
DX: K94.09 Other complications of colostomy (principal); K56.7 Ileus, unspecified; R64 Cachexia; K52.0 Gastroenteritis and colitis due to radiation; Z68.1 Body mass index [BMI] 19.9 or less, adult; T81.32XA Disruption of internal operation (surgical) wound, not elsewhere classified, initial encounter; Y83.3 Surgical operation with formation of external stoma as the cause of abnormal reaction of the patient, or of later complication, without mention of misadventure at the time of the procedure; Y84.2 Radiological procedure and radiotherapy as the cause of abnormal reaction of the patient, or of later complication, without mention of misadventure at the time of the procedure; Y83.8 Other surgical procedures as the cause of abnormal reaction of the patient, or of later complication, without mention of misadventure at the time of the procedure; J44.9 Chronic obstructive pulmonary disease, unspecified; K21.9 Gastro-esophageal reflux disease without esophagitis; K58.9 Irritable bowel syndrome, unspecified; F17.210 Nicotine dependence, cigarettes, uncomplicated; F41.9 Anxiety disorder, unspecified; Z85.048 Personal history of other malignant neoplasm of rectum, rectosigmoid junction, and anus
CPT/HCPCS: 36430; 36569; 74019; 76937; 80048; 80053; 82948; 83605; 84155; 85014; 85018; 85025; 85610; 85730; 86850; 86900; 86901; 86920; 87641; 88307; 94150; 94640; 94664; 96361; 96374; 96375; 96376; C9113; J0330; J0690; J1100; J1170; J1200; J1642; J1885; J1940; J2270; J2370; J2405; J2550; J2710; J2765; J3010; J3480; J7030; J7120; J7121; J7613; J7644; P9016; P9045; P9047

== ENCOUNTER 2018-05-19 11:18 | Inpatient (IN) ==
[2018-05-19] MEDS ORDERED: Sod Chloride 0.9% Inj 1,000 ML IV.SIG ONE (12:15)
--- NOTE | 2018-05-19 12:21 | ED ---
HPI General Chief complaint: Medical Clearance Stated complaint: Psych Eval/Medical compaint/Evac/OBPD Time Seen by Provider: 05/19/18 11:37 Source: patient Mode of arrival: EMS History of Present Illness HPI narrative: The patient was seen and examined in the presence of the nurse. This patient lives alone. She has history of anal cancer and has had multiple abdominal surgeries and has a colostomy. 2 days ago she fell and was not able to get up. She has been lying on the ground for days. She was found by a neighbor covered in stool. She does not wear a bag over her colostomy because she finds it irritating. So she defecates all over the place. Her house apparently was covered in stool. She denies head or neck pain. She is brought in under police Ramos act. She denies psychiatric problems or depression. She has not eaten in days. Symptom severity is moderate. No alleviating factor. No exacerbating factors. Related Data Home Medications Medication Instructions Recorded Confirmed Unable to Obtain Home Meds 05/19/18 05/19/18 Allergies Allergy/AdvReac Type Severity Reaction Status Date / Time No Known Allergies Allergy Unverified 05/19/18 11:33 Review of Systems Except as stated in HPI: all other systems reviewed are negative [facility] Medical History Medical History Anal cancer (Acute) Asthma (Acute) COPD (chronic obstructive pulmonary disease) (Acute) Colostomy in place (Acute) Emphysema, unspecified (Acute) Social History Social History Substance History: Past History Smoking Status: Former smoker Tobacco Type: Cigarettes How Often Do You Have a Drink Containing Alcohol: Monthly or less Recent Travel in [facility] within the Last 8 Weeks: No Recent Out of Country Travel within the Last 8 Weeks: No Exam Narrative Exam Narrative: GENERAL: Thin disheveled with uncovered colostomy covered in stool . SKIN: Focused skin assessment reveals no rash and nodules. Skin is Warm and dry. There is quarter sized ulcer at the 3 o'clock position adjacent to the anus HEAD: Atraumatic. Normocephalic. EYES: Pupils equal and round. No scleral icterus. No injection or drainage. ENT: No nasal bleeding or discharge. Mucous membranes pink and moist. NECK: Trachea midline. No JVD. CARDIOVASCULAR: Regular rate and rhythm. No murmur appreciated. RESPIRATORY: No accessory muscle use. Clear to auscultation. Breath sounds equal bilaterally. GASTROINTESTINAL: Abdomen soft, non-tender, nondistended. Hepatic and splenic margins not palpable. Uncovered colostomy. There is slight bulging of intestine when she talks or coughs. MUSCULOSKELETAL: No obvious deformities. No clubbing. No cyanosis. No edema. NEUROLOGICAL: Awake and alert. No obvious cranial nerve deficits. Motor grossly within normal limits. Normal speech. PSYCHIATRIC: Appropriate mood and affect; insight and judgment poor . Course Initial Documented Vital Signs Temperature 98.6 F 05/19/18 11:26 Pulse Rate 68 05/19/18 11:26 Respiratory Rate 18 05/19/18 11:26 Blood Pressure 128/60 05/19/18 11:26 Pulse Oximetry 98 05/19/18 11:26 Last Documented Vital Signs Temperature 98.6 F 05/19/18 11:26 Pulse Rate 85 05/19/18 15:00 Respiratory Rate 18 05/19/18 15:00 Blood Pressure 135/86 05/19/18 15:00 Pulse Oximetry 97 05/19/18 15:00 Medical Decision Making MDM Narrative Medical decision making narrative: IV placed and labs sent. I gave her a liter of saline IV CK is elevated suggesting mild rhabdomyolysis I have ordered and psych screen as she is here under Ramos act She has hypokalemic at 2.8 She is heavily intoxicated at 390 Case reviewed in detail with hospitalist who will admit for medical stabilization given her rhabdomyolysis and hypokalemia and severe intoxication. She also has significant cachexia and malnutrition. She will have psychiatric evaluation as well Differential Diagnosis Differential Diagnosis: Failure to thrive, dehydration, rhabdomyolysis Medical Records Medical records reviewed: Yes I reviewed the patient's medical records. Reviewed her discharge summary from 3 months ago Lab Data Result diagrams: 05/19/18 12:35 05/19/18 12:35 Lab Results 05/19/18 05/19/18 05/19/18 Range/Units 12:35 12:35 12:35 WBC 5.4 (4.0-11.0) th/mm3 RBC 4.28 (4.00-5.30) mil/mm3 Hgb 12.7 (11.6-15.3) gm/dL Hct 38.6 (35.0-46.0) % MCV 90.2 (80.0-100.0) fL MCH 29.6 (27.0-34.0) pg MCHC 32.9 (32.0-36.0) % RDW 21.7 H (11.6-17.2) % Plt Count 195 (150-450) th/mm3 MPV 6.4 L (7.0-11.0) fL Neut % (Auto) 84.7 H (16.0-70.0) % Lymph % (Auto) 10.6 (9.0-44.0) % [place] % (Auto) 4.5 (0.0-8.0) % Eos % (Auto) 0.0 (0.0-4.0) % Baso % (Auto) 0.2 (0.0-2.0) % Neut # (Auto) 4.6 (1.8-7.7) th/mm3 Lymph # (Auto) 0.6 L (1.0-4.8) th/mm3 [place] # (Auto) 0.2 (0.0-0.9) th/mm3 Eos # (Auto) 0.0 (0.0-0.4) th/mm3 Baso # (Auto) 0.0 (0.0-0.2) th/mm3 WBC Differential . Differential Comment Auto diff final Sodium 143 (136-145) meq/L Potassium 2.8 L* (3.5-5.1) meq/L Chloride 104 (98-107) meq/L Carbon Dioxide 24.2 (21.0-32.0) meq/L Anion Gap 15 (5-15) meq/L BUN 8 (7-18) mg/dL Creatinine 0.52 (0.50-1.00) mg/dL Estimated GFR Greater than 89 (>89) mL/min Random Glucose 69 L (74-106) mg/dL Calcium 7.7 L (8.5-10.1) mg/dL Total Bilirubin 0.4 (0.2-1.0) mg/dL AST 86 H (15-37) U/L ALT 30 (10-53) U/L Alkaline Phosphatase 79 (45-117) U/L Total Creatine Kinase 1418 H (26-192) U/L CK-MB (CK-2) 23.2 H (0.5-3.6) ng/mL CK-MB (CK-2) % 1.6 (0.0-4.0) % Total Protein 6.8 (6.4-8.2) g/dL Albumin 2.8 L (3.4-5.0) g/dL TSH 3.870 H Cancelled (0.358-3.740) uIU/mL Urine Color (Yellw/Straw) Urine Clarity (Clear) Urine pH (5.0-8.5) Ur Specific [place] (1.002-1.035) Urine Protein (Neg-Trace) mg/dL Urine Glucose (UA) (Negative) mg/dL Urine Ketones (Negative) mg/dL Urine Occult Blood (Negative) Urine Nitrate (Negative) Urine Bilirubin (Negative) Urine Urobilinogen (Less than 2) mg/dL Ur Leukocyte Esterase (Negative) Urine RBC (0-3) /hpf Urine WBC (0-5) /hpf Urine WBC Clumps (None) Ur Squamous Epith Cells (0-5) /hpf Urine Bacteria (None) /hpf Urine Mucus (Occasional) /lpf Micro UA Comment Urine Culture Comments Serum Alcohol 390 H (0-5) mg/dL 05/19/18 05/19/18 Range/Units 12:35 12:35 WBC (4.0-11.0) th/mm3 RBC (4.00-5.30) mil/mm3 Hgb (11.6-15.3) gm/dL Hct (35.0-46.0) % MCV (80.0-100.0) fL MCH (27.0-34.0) pg MCHC (32.0-36.0) % RDW (11.6-17.2) % Plt Count (150-450) th/mm3 MPV (7.0-11.0) fL Neut % (Auto) (16.0-70.0) % Lymph % (Auto) (9.0-44.0) % [place] % (Auto) (0.0-8.0) % Eos % (Auto) (0.0-4.0) % Baso % (Auto) (0.0-2.0) % Neut # (Auto) (1.8-7.7) th/mm3 Lymph # (Auto) (1.0-4.8) th/mm3 [place] # (Auto) (0.0-0.9) th/mm3 Eos # (Auto) (0.0-0.4) th/mm3 Baso # (Auto) (0.0-0.2) th/mm3 WBC Differential Differential Comment Sodium (136-145) meq/L Potassium (3.5-5.1) meq/L Chloride (98-107) meq/L Carbon Dioxide (21.0-32.0) meq/L Anion Gap (5-15) meq/L BUN (7-18) mg/dL Creatinine (0.50-1.00) mg/dL Estimated GFR (>89) mL/min Random Glucose (74-106) mg/dL Calcium (8.5-10.1) mg/dL Total Bilirubin (0.2-1.0) mg/dL AST (15-37) U/L ALT (10-53) U/L Alkaline Phosphatase (45-117) U/L Total Creatine Kinase Cancelled (26-192) U/L CK-MB (CK-2) (0.5-3.6) ng/mL CK-MB (CK-2) % (0.0-4.0) % Total Protein (6.4-8.2) g/dL Albumin (3.4-5.0) g/dL TSH (0.358-3.740) uIU/mL Urine Color [place] (Yellw/Straw) Urine Clarity Cloudy H (Clear) Urine pH 6.0 (5.0-8.5) Ur Specific [place] 1.016 (1.002-1.035) Urine Protein 30 H (Neg-Trace) mg/dL Urine Glucose (UA) Negative (Negative) mg/dL Urine Ketones Trace H (Negative) mg/dL Urine Occult Blood Moderate H (Negative) Urine Nitrate Positive H (Negative) Urine Bilirubin Negative (Negative) Urine Urobilinogen 2.0 H (Less than 2) mg/dL Ur Leukocyte Esterase Moderate H (Negative) Urine RBC 1 (0-3) /hpf Urine WBC 106 H (0-5) /hpf Urine WBC Clumps Few H (None) Ur Squamous Epith Cells <1 (0-5) /hpf Urine Bacteria Many H (None) /hpf Urine Mucus Few H (Occasional) /lpf Micro UA Comment Cath-culture ind Urine Culture Comments Cath-cult indicated Serum Alcohol Cancelled (0-5) mg/dL Discharge Plan Discharge Disposition Patient Disposition: 30 Still Patient Discharge Details Diagnosis: Malnutrition, Hypokalemia, Rhabdomyolysis Physicians Team ED Provider: Panda Candelaria Primary Care Provider: Primary Care Cecilia Hodge Rxs /Orders / Referrals /Forms Prescriptions: No Action Unable to Obtain Home Meds RF: 0 Discharge Interventions Interventions: Vital Signs Last Done: 05/19/18 15:00 Status ED Status: With Doctor
[2018-05-19 12:47] LABS: Baso % (Auto) 0.2 % (0.0-2.0); Hematocrit 38.6 % (35.0-46.0); Hemoglobin 12.7 gm/dL (11.6-15.3); Lymph # (Auto) 0.6 th/mm3 (1.0-4.8); Lymph % (Auto) 10.6 % (9.0-44.0); Mean Corpuscular HGB Conc 32.9 % (32.0-36.0); Mean Corpuscular Hemoglobin 29.6 pg (27.0-34.0); Mean Corpuscular Volume 90.2 fL (80.0-100.0); Mean Platelet Volume 6.4 fL (7.0-11.0); Mono # (Auto) 0.2 th/mm3 (0.0-0.9); Mono % (Auto) 4.5 % (0.0-8.0); Neut # (Auto) 4.6 th/mm3 (1.8-7.7); Neut % (Auto) 84.7 % (16.0-70.0); Platelet Count 195 th/mm3 (150-450); Red Blood Count 4.28 mil/mm3 (4.00-5.30); Red Cell Distribution Width 21.7 % (11.6-17.2); White Blood Count 5.4 th/mm3 (4.0-11.0)
[2018-05-19 13:04] LABS: Bacteria,Urine Many /hpf; Bilirubin,Urine Negative (Negative); Clarity,Urine Cloudy (Clear); Color,Urine Amber (Yellw/Straw); Glucose,Urine (UA) Negative (Negative); Leukocyte Esterase,Urine Moderate (Negative); Mucus,Urine Few /lpf (Occasional); Nitrite,Urine Positive (Negative); Specific Gravity,Urine 1.016 (1.002-1.035); Squamous Epithelial Cell,Urine <1 /hpf (0-5)
[2018-05-19 13:26] LABS: Alanine Aminotransferase 30 U/L (10-53); Albumin 2.8 g/dL (3.4-5.0); Alkaline Phosphatase 79 U/L (45-117); Anion Gap 15 meq/L (5-15); Aspartate Aminotransferase 86 U/L (15-37); Blood Urea Nitrogen 8 mg/dL (7-18); Calcium 7.7 mg/dL (8.5-10.1); Carbon Dioxide 24.2 meq/L (21.0-32.0); Chloride 104 meq/L (98-107); Sodium 143 meq/L (136-145); Total Protein 6.8 g/dL (6.4-8.2)
[2018-05-19 13:47] LABS: Creatine Kinase 1418 U/L (26-192)
[2018-05-19 14:06] LABS: Alcohol 390 mg/dL (0-5); Potassium 2.8 meq/L (3.5-5.1)
[2018-05-19 14:20] LABS: Glomerular Filtration Rate Greater Than 89 mL/min (>89); Glucose,Random 69 mg/dL (74-106)
[2018-05-19 14:25] LABS: CKMB Percent 1.6 % (0.0-4.0); Creatine Kinase MB 23.2 ng/mL (0.5-3.6)
[2018-05-19] MEDS ORDERED: Bisacodyl 10 MG Supp RECTAL PRN (15:35)
[2018-05-19] MEDS ORDERED: Temazepam 15 MG Capsule PO PRN (15:35)
[2018-05-19] MEDS ORDERED: Acetaminophen 325 MG Tablet PO PRN ×2 (15:35→16:16)
[2018-05-19] MEDS: Heparin - SQ 10,000 UNITS/ML Vial SQ SCH (16:29)
--- NOTE | 2018-05-19 17:44 | P.HPIM ---
History of Present Illness Primary Care Physician: No Primary Care Physician Chief Complaint: I feel weak History of Present Illness: 63-year-old white female with a history of colostomy from previous history of rectal cancer, COPD presents to the emergency room after being found in a house full of feces on the floor which led to law enforcement Ramos acting her to bring into the emergency room for further evaluation. Per the emergency room physician, she was found by a neighbor in her house full of feces and she does not usually keep her colostomy bag on due to finding it irritating to the abdominal area. She states that she has been more weak during the past few days and falling from her wheelchair in which she states that she is currently wheelchair-bound at her baseline. She lives by herself and has a friend that usually brings her food and groceries. She states that she does not drink on a daily basis but finally admitted to drinking some alcohol" yesterday after I commented they were elevated levels of alcohol in her lab work. 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 Inpatient Certification: I certify that the inpatient services were ordered in accordance with Medicare regulations governing the order. This includes certification that hospital inpatient services are reasonable and necessary and in the case of services not specified as inpatient-only under 42 CFR 419.22(n), that they are appropriately provided as inpatient services in accordance to with the 2-midnight benchmark under 43 CFR 412.3(e) Estimated Total Length of Stay (Days): 3 Plans for Post Hospital Care: SNF Review of Systems Constitutional: Reports lack of energy, Reports weight loss Eyes: Denies change in vision, Denies loss of vision Ears, Nose, Mouth, and Throat: Reports poor balance, Denies abnormal hearing, Denies bleeding gums, Denies dental pain, Denies nasal discharge, Denies pain with swallowing Cardiovascular: Denies chest pain, Denies excessive sweating, Denies fast heart rate, Denies generalized swelling, Denies shortness of breath with activity Respiratory: Reports chest congestion, Denies cough, Denies coughing up blood, Denies shortness of breath with activity Gastrointestinal: Reports change in bowel habits, Denies abdominal pain, Denies nausea, Denies vomiting Genitourinary: Denies difficulty starting urination, Denies difficulty urinating , Denies painful urination Musculoskeletal: Reports decreased muscle mass, Reports limited joint movement, Denies body aches Skin/Breast: Denies unusual bruising, Denies wounds Neurologic: Reports frequent falls, Reports lack of coordination, Reports localized weakness, Denies memory loss, Denies other visual disturbances, Denies seizure-like activity Psychiatric: Reports anxiety, Reports change in appetite, Denies abnormal sleep pattern, Denies depression PMF - History History 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, 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 - Medical History Medical History: Medical History (Last Updated 05/19/18 @ 17:39 by Petrona Marcus MD) Anal cancer Asthma COPD (chronic obstructive pulmonary disease) Colostomy in place Emphysema, unspecified History of hysterectomy - Family History Family History: Family History (Last Updated 05/19/18 @ 17:39 by Petrona Marcus MD) Mother Family history of breast cancer - Tobacco History Smoking Status: Former smoker Tobacco Type: Cigarettes - Alcohol History How Often Do You Have a Drink Containing Alcohol: Monthly or less - Substance Use History Substance History: Past History - Substance Use Type Marijuana Status: Sustained Remission Route Used: Inhalation - Travel History Recent Travel in the USA Within the Last 8 Weeks: No Recent Travel Out of the Country Within the Last 8 Weeks: No - Immunization History Tetanus Immunization: Unable to Assess Hx Influenza Vaccine This Season: Unable to Assess Medications and Allergies Active Medications: Active Medications Acetaminophen (Tylenol) 650 mg PO Q4H PRN PRN Reason: Temp > 100.4 Al Hydroxide/Mg Hydroxide (Milk Of Magnesia Liq) 30 ml PO Q12H PRN PRN Reason: Mild Constipation Bisacodyl (Dulcolax Supp) 10 mg RECTAL DAILY PRN PRN Reason: SEVERE CONSITIPATION Heparin Sodium (Porcine) (Heparin Inj) 5,000 units SQ Q12H [facility] Last Admin: 05/19/18 16:29 Dose: 5,000 units Sodium Chloride (Ns Inj) 1,000 mls @ 100 mls/hr IV.CONT .Q10H [facility] Ceftriaxone Sodium 1,000 mg/ (Sodium Chloride) 100 mls @ 200 mls/hr IV.SIG Q24H [facility] Last Infusion: 05/19/18 16:59 Dose: Infused Lactulose (Lactulose Liq) 30 ml PO DAILY PRN PRN Reason: SEVERE CONSITIPATION Ondansetron HCl (Zofran Odt) 4 mg PO Q6H PRN PRN Reason: NAUSEA OR VOMITING Sennosides (Senokot) 17.2 mg PO Q12H PRN PRN Reason: Moderate Constipation Temazepam (Restoril) 15 mg PO HS PRN PRN Reason: INSOMNIA Allergies Allergy/AdvReac Type Severity Reaction Status Date / Time No Known Allergies Allergy Verified 05/19/18 16:13 Home Medications Medication Instructions Recorded Confirmed Type Inhaler INHALATION 05/19/18 History Ridders Cream TOPICAL 05/19/18 History Exam Vital signs: Vital Signs 05/19/18 11:26 05/19/18 12:14 05/19/18 13:00 Temperature 98.6 F Pulse Rate 68 86 70 Respiratory Rate 18 18 18 Blood Pressure 128/60 127/62 130/80 Pulse Oximetry 98 98 97 05/19/18 14:00 05/19/18 15:00 Temperature Pulse Rate 82 85 Respiratory Rate 18 Blood Pressure 132/78 135/86 Pulse Oximetry 97 97 Intake & Output 05/18/18 05/19/18 05/19/18 18:59 06:59 18:59 Intake Total 100 / 100 Balance 100 / 100 Weight 49.895 kg Intake: IV 100 / 100 Rocephin Inj 1,000 MG In NS Inj 100 / 100 100 ML @ 200 mls/hr IV.SIG Q24H [facility] Rx#:[id number] Narrative: GENERAL: Thin, malnourished quite female in no acute distress with lower extremity mildly contracted relatively SKIN: Warm and dry. HEAD: Atraumatic. Normocephalic. EYES: Pupils equal and round. No scleral icterus. No injection or drainage. ENT: No nasal bleeding or discharge. Mucous membranes pink and moist. NECK: Trachea midline. No JVD. CARDIOVASCULAR: Regular rate and rhythm. RESPIRATORY: No accessory muscle use. Clear to auscultation. Breath sounds equal bilaterally. GASTROINTESTINAL: Abdomen soft, non-tender, nondistended. Hepatic and splenic margins not palpable. Colostomy in tach with viable tissues, normoactive bowel sounds MUSCULOSKELETAL: Extremities without clubbing, cyanosis, trace edema of the bilateral feet, bilateral lateral mild contractures of lower extremity atrophic NEUROLOGICAL: Awake and alert to person place and time. No obvious cranial nerve deficits. Generalized weakness over the lower extremities. Normal speech. PSYCHIATRIC: Appropriate mood and affect; Results - Labs CBC & Chem 7: 05/19/18 12:35 05/19/18 12:35 Labs: Short CBC 05/19/18 Range/Units 12:35 WBC 5.4 (4.0-11.0) th/mm3 Hgb 12.7 (11.6-15.3) gm/dL Hct 38.6 (35.0-46.0) % Plt Count 195 (150-450) th/mm3 BMP 05/19/18 12:35 Sodium 143 Potassium 2.8 L* Chloride 104 Carbon Dioxide 24.2 BUN 8 Creatinine 0.52 Calcium 7.7 L Cardiac Enzymes 05/19/18 05/19/18 Range/Units 12:35 12:35 Total Creatine Kinase 1418 H Cancelled (26-192) U/L CK-MB (CK-2) 23.2 H (0.5-3.6) ng/mL Liver Function 05/19/18 Range/Units 12:35 Total Bilirubin 0.4 (0.2-1.0) mg/dL AST 86 H (15-37) U/L ALT 30 (10-53) U/L Alkaline Phosphatase 79 (45-117) U/L Albumin 2.8 L (3.4-5.0) g/dL Urine 05/19/18 Range/Units 12:35 Urine Color Becca (Yellw/Straw) Urine Clarity Cloudy H (Clear) Urine pH 6.0 (5.0-8.5) Ur Specific Rector 1.016 (1.002-1.035) Urine Protein 30 H (Neg-Trace) mg/dL Urine Glucose (UA) Negative (Negative) mg/dL Caprini VTE Risk Assessment Caprini VTE Risk Assessment: Moderate/High Risk (score >= 2) Caprini Risk Assessment Model: Point Value = 1 Point Value = 2 Point Value = 3 Point Value = 5 Age 41-60 Minor surgery BMI > 25 kg/m2 Swollen legs Varicose veins or History of unexplained or recurrent spontaneous Oral contraceptives or hormone replacement Sepsis (< 1 month) Serious lung disease, including pneumonia (< 1 month) Abnormal pulmonary function Acute myocardial infarction Congestive heart failure (< 1 month) History of inflammatory bowel disease Medical patient at bed rest Age 61-74 Arthroscopic surgery Major open surgery (> 45 min) Laparoscopic surgery (> 45 min) Malignancy Confined to bed (> 72 hours) Immobilizing plaster cast Central venous access Age >= 75 History of VTE Family history of VTE Factor V Leiden Prothrombin [id number] Lupus anticoagulant Anticardiolipin antibodies Elevated serum homocysteine Heparin-induced thrombocytopenia Other congenital or acquired thrombophilia Stroke (< 1 month) Elective arthroplasty Hip, pelvis, or leg fracture Acute spinal cord injury (< 1 month) Prophylaxis Regimen: Total Risk Factor Score Risk Level Prophylaxis Regimen 0-1 Low Early ambulation 2 Moderate Order ONE of the following: *Sequential Compression Device (SCD) *Heparin 5000 units SQ BID 3-4 Higher Order ONE of the following medications: *Heparin 5000 units SQ TID *Enoxaparin/Lovenox 40 mg SQ daily (WT < 150 kg, CrCl > 30 mL/min) *Enoxaparin/Lovenox 30 mg SQ daily (WT < 150 kg, CrCl > 10-29 mL/min) *Enoxaparin/Lovenox 30 mg SQ BID (WT < 150 kg, CrCl > 30 mL/min) AND/OR *Sequential Compression Device (SCD) 5 or more Highest Order ONE of the following medications: *Heparin 5000 units SQ TID (Preferred with Epidurals) *Enoxaparin/Lovenox 40 mg SQ daily (WT < 150 kg, CrCl > 30 mL/min) *Enoxaparin/Lovenox 30 mg SQ daily (WT < 150 kg, CrCl > 10-29 mL/min) *Enoxaparin/Lovenox 30 mg SQ BID (WT < 150 kg, CrCl > 30 mL/min) AND *Sequential Compression Device (SCD) Assessment and Plan - Plan 63-year-old white female who has a history of COPD and chronically wheelchair- bound brought to the emergency room under a Ramos act after found on the floor with feces throughout of her house and body 1. Acute rhabdomyolysis likely due to the fall and dehydration-IV fluid hydration and monitor CPK and renal functions. 2. Severe malnutritiondietary consult along with ensure supplements with meals 3 times daily. Unsure her social situation to be able to get adequate food and nutrition and recommend going to a [place] [facility] [place] facility which patient declines at this time. 3. History of COPDnot in acute exacerbationcontinue with inhalers. 4. History of colostomy from history of rectal cancercontinue ostomy care 5. Status post Ramos act with evaluation on patient's ability to care for self- psychiatry consultation due to Ramos act. 6. Hypokalemiareplete 7. Alcohol intoxicationpatient was counseled. She was extremely vague during the history and states that he she does not drink on a chronic basis. Start CIWA protocol. 8. Abnormal urinalysis suspect urinary tract infectioninitiate ceftriaxone and monitor final cultures and sensitivity. 9. DVT prophylaxisheparin
[2018-05-19] MEDS: Sod Chloride 0.9% Inj 1,000 ML IV.CONT SCH (19:35)
[2018-05-20] MEDS: Sod Chloride 0.9% Inj 1,000 ML IV.CONT SCH ×3 (03:37→22:34)
[2018-05-20 04:46] LABS: Amphetamine Screen,Urine Neg (Neg); Barbiturate Screen,Urine Pos (Neg); Cannabinoid Screen,Urine Neg (Neg); Cocaine Screen,Urine Neg (Neg)
[2018-05-20] MEDS: Heparin - SQ 10,000 UNITS/ML Vial SQ SCH ×2 (04:47→16:27)
[2018-05-20 04:52] LABS: Opiate Screen,Urine Neg (Neg)
[2018-05-20 09:08] LABS: Baso % (Auto) 0.2 % (0.0-2.0); Eos % (Auto) 0.2 % (0.0-4.0); Hematocrit 35.4 % (35.0-46.0); Hemoglobin 11.6 gm/dL (11.6-15.3); Lymph # (Auto) 0.8 th/mm3 (1.0-4.8); Lymph % (Auto) 10.8 % (9.0-44.0); Mean Corpuscular HGB Conc 32.7 % (32.0-36.0); Mean Corpuscular Hemoglobin 29.8 pg (27.0-34.0); Mean Platelet Volume 6.8 fL (7.0-11.0); Mono # (Auto) 0.3 th/mm3 (0.0-0.9); Mono % (Auto) 4.1 % (0.0-8.0); Neut # (Auto) 6.6 th/mm3 (1.8-7.7); Neut % (Auto) 84.7 % (16.0-70.0); Platelet Count 140 th/mm3 (150-450); Red Blood Count 3.89 mil/mm3 (4.00-5.30); Red Cell Distribution Width 21.5 % (11.6-17.2); White Blood Count 7.8 th/mm3 (4.0-11.0)
[2018-05-20 09:31] LABS: Anion Gap 13 meq/L (5-15); Blood Urea Nitrogen 5 mg/dL (7-18); Calcium 7.5 mg/dL (8.5-10.1); Carbon Dioxide 27.3 meq/L (21.0-32.0); Chloride 101 meq/L (98-107); Glomerular Filtration Rate Greater Than 89 mL/min (>89); Glucose,Random 77 mg/dL (74-106); Magnesium 1.4 mg/dL (1.5-2.5); Potassium 3.2 meq/L (3.5-5.1); Sodium 141 meq/L (136-145)
--- NOTE | 2018-05-20 09:31 | P.CONPSY ---
Provisional Diagnosis Admission Date: May 19, 2018 15:52 Eros I.: Adjustment disorder, alcohol abuse with intoxication History of Present Illness Service: Psychiatry Consult date: 05/20/18 Requesting Physician: Petrona Marcus Reason for Consult: Rachel shane Primary Care Provider: No Primary Care Physician Chief Complaint: I feel weak History of Present Illness: Patient is a 63-year-old white female initially admitted to the hospital for malnutrition weakness and inability to care for self. Patient was Ramos acted due to the observed living situation. It appears patient has had surgery for cancer of the rectum has a colostomy was found lying in her own stool weak and unable care for herself. When screened in the ED her blood alcohol level was 390, urine toxicology positive for barbiturates. Patient seen in her room with nurse and medical student Brittani. Patient is a thin slight slender white female appears older than her stated age resting quietly in her bed she is calm cooperative pleasant with us with good eye contact. Patient denies any prior psychiatric contact hospitalization her psychotropic medication. Patient denies any suicidal ideation intent or plan. She denies any voices or visions. Patient does acknowledge but minimizes the role alcohol plays in her life. She states she does have a human factors advisor lead that comes and occasionally to help her with chores and shopping. It appears this human factors advisor lead Mihai for gin and her cigarettes and also drinks with her. Of interest review of the EMR shows 2 other significantly elevated blood alcohol level since mid 2016. Patient is vague though did acknowledge some type for detox of a prior hospitalization. Denies rehab. Denies blacking out or passing out. Denies any legal issues related to alcohol use. Denies any other drug misuse. She states she also does have COPD but continues to smoke about a half a pack of cigarettes per day. Patient is single and has never been she has some family of origin lives up in [place]. 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 She lives alone does have a pet cat that she appears to be quite fond of. Patient denies any physical or sexual abuse. Denies any mental health issues in the family. There is a history of alcohol abuse with her father. At this time patient does not meet Ramos criteria I will lift the Ramos act. We did discuss possible medication use and patient is not willing to do that she denies feeling depressed at this time. It appears she is somewhat reluctant to consider transition to a rehab-type facility. She is afraid of the insurability of that. Says she was in 1 after 1 of her last hospitalizations. At this time I would recommend attempts to see if she be willing to transition for a brief period of time into such a facility whatever her insurance might cover. Also would recommend home health nursing if at all possible. Encourage some type of counseling related to her tobacco was some and her alcoholism. However she does not meet criteria be retained under a Ramos act. Thanks for consult I will sign off at the present time Review of Systems Please see med surge assessments PMFSH - History History 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 - Medical History Medical History: Medical History (Last Reviewed 05/20/18 @ 06:55 by Ameya Doan) Anal cancer Asthma COPD (chronic obstructive pulmonary disease) Colostomy in place Emphysema, unspecified History of hysterectomy - Family History Family History: Family History (Last Updated 05/19/18 @ 17:39 by Petrona Marcus MD) Mother Family history of breast cancer - Tobacco History Second Hand Smoke Exposure: Yes Tobacco Use In Past 30 Days: Yes Smoking Status: Current every day smoker Tobacco Type: Cigarettes - Alcohol History How Often Do You Have a Drink Containing Alcohol: 2 to 3 times a week - Substance Use History Substance History: No History of Abuse - Substance Use Type Marijuana Status: Sustained Remission Route Used: Inhalation - Travel History Recent Travel in the [place] Within the Last 8 Weeks: No Recent Travel Out of the Country Within the Last 8 Weeks: No - Immunization History Tetanus Immunization: Unable to Assess Hx Influenza Vaccine This Season: Unable to Assess Medications and Allergies Active Medications: Active Medications Acetaminophen (Tylenol) 650 mg PO Q4H PRN PRN Reason: Temp > 100.4 Al Hydroxide/Mg Hydroxide (Milk Of Marita Rios) 30 ml PO Q12H PRN PRN Reason: Mild Constipation Albuterol (Duoneb Neb (Arnav)) 1 ampul NEB Q8HR ALT NEB [facility] Last Admin: 05/20/18 08:31 Dose: 1 ampul Albuterol (Albuterol Neb (Prn)) 2.5 mg NEB Q2HR NEB PRN PRN Reason: SHORTNESS OF BREATH Bisacodyl (Dulcolax Supp) 10 mg RECTAL DAILY PRN PRN Reason: SEVERE CONSITIPATION Heparin Sodium (Porcine) (Heparin Inj) 5,000 units SQ Q12H [facility] Last Admin: 05/20/18 04:47 Dose: 5,000 units Hydrocortisone Acetate (Anusol-Hc) 1 applicatio RECTAL BID [facility] Last Admin: 05/19/18 21:00 Dose: 1 applicatio Sodium Chloride (Ns Inj) 1,000 mls @ 100 mls/hr IV.CONT .Q10H [facility] Last Admin: 05/20/18 03:37 Dose: Not Given Ceftriaxone Sodium 1,000 mg/ (Sodium Chloride) 100 mls @ 200 mls/hr IV.SIG Q24H [facility] Last Infusion: 05/19/18 16:59 Dose: Infused Potassium Chloride/Sodium Chloride (Ns + Kcl 20 Meq Inj) 1,000 mls @ 100 mls/ hr IV.CONT .Q10H [facility] Last Admin: 05/20/18 05:01 Dose: 100 mls/hr Lactulose (Lactulose Liq) 30 ml PO DAILY PRN PRN Reason: SEVERE CONSITIPATION Ondansetron HCl (Zofran Odt) 4 mg PO Q6H PRN PRN Reason: NAUSEA OR VOMITING Last Admin: 05/20/18 05:00 Dose: 4 mg Sennosides (Senokot) 17.2 mg PO Q12H PRN PRN Reason: Moderate Constipation Temazepam (Restoril) 15 mg PO HS PRN PRN Reason: INSOMNIA Last Admin: 05/19/18 21:01 Dose: 15 mg Allergies Allergy/AdvReac Type Severity Reaction Status Date / Time No Known Allergies Allergy Verified 05/19/18 16:13 Home Medications Medication Instructions Recorded Confirmed Type Inhaler INHALATION 05/19/18 History Ridders Cream TOPICAL 05/19/18 History Exam Vital signs: Vital Signs 05/19/18 11:26 05/19/18 12:14 05/19/18 13:00 Temperature 98.6 F Pulse Rate 68 86 70 Respiratory Rate 18 18 18 Blood Pressure 128/60 127/62 130/80 Pulse Oximetry 98 98 97 05/19/18 14:00 05/19/18 15:00 05/19/18 16:00 Temperature 97.4 F L Pulse Rate 82 85 73 Respiratory Rate 18 18 24 Blood Pressure 132/78 135/86 130/62 Pulse Oximetry 97 97 93 L 05/19/18 20:20 05/20/18 00:45 05/20/18 04:20 Temperature 98.1 F 97.9 F 98 F Pulse Rate 93 H 89 88 Respiratory Rate 19 20 18 Blood Pressure 114/59 L 118/60 120/80 Pulse Oximetry 94 L 95 93 L 05/20/18 08:34 Temperature Pulse Rate 81 Respiratory Rate 14 Blood Pressure Pulse Oximetry Intake & Output 05/19/18 05/20/18 05/20/18 18:59 06:59 18:59 Intake Total 100 / 100 3050 / 3050 Output Total 675 / 675 Balance 100 / 100 2375 / 2375 Weight 49.895 kg 52 kg Intake: IV 100 / 100 2000 / 1999 NS + KCl 20 mEq Inj 1,000 ML @ 1000 / 1000 100 mls/hr IV.CONT .Q10H [facility] Rx #:[id number] NS Inj 1,000 ML @ Wide Open IV. 1000 / 1000 [facility] Rx#:[id number] Rocephin Inj 1,000 MG In NS Inj 100 / 100 100 ML @ 200 mls/hr IV.SIG Q24H [facility] Rx#:[id number] Oral 1050 / 1050 Output: Stool 0 / 0 Emesis 50 / 50 Stool Amount (Stoma) 625 / 625 Pre-Hospital: Left Upper 625 / 625 Abdomen Other: # Voids 6 Date of Last Bowel Movement 05/19/18 # Bowel Movements 0 # Emeses 200 Weight On Admission 49.895 kg Mental Status Examination Appearance: Appropriate Consciousness: Alert Orientation: x4 Motor Activity: Other (Patient laying in bed unable to ascertain gait but has been wheelchair ridden at home) Speech: Unremarkable Language: Adequate Fund of Knowledge: Adequate Attention and Concentration: Adequate Memory: Unremarkable Mood: Other (Euthymic, mildly dysphoric) Affect: Other (Good range and intensity) Thought Process & Associations: Intact Thought Content: Appropriate Hallucination Type: None Delusion Type: None Suicidal Ideation: No Suicidal Plan: No Suicidal Intention: No Homicidal Ideation: No Homicidal Plan: No Homicidal Intention: No Insight: Fair Judgment: Poor Assessment and Plan - Assessment (1) Alcohol abuse with intoxication Code(s): F10.129 - Alcohol abuse with intoxication, unspecified Status: Acute (2) Adjustment disorder Code(s): F43.20 - Adjustment disorder, unspecified Status: Acute - Plan Plan: Estimated LOS: [] days At this time patient is alert and oriented. His may. That she does have capacity to make decisions concerning her care. Although her judgment is somewhat poor related to her tobacco use and alcohol use. She does not meet Ramos criteria thus I will lift Ramos act. The may be some issues with finding appropriate placement. I would recommend a rehab facility though she may wish to return home then I would recommend perhaps some home health care to assist her and may be somewhat concerned about her caregiver that person is buying her alcohol and tobacco and drinking with he. At this time I see no specific indication for psychotropic medication. Thanks for consult I will sign off the present time Justification for Continued Inpatient Stay: To be determined by [facility] treatment team Discharge Planning: To be determined by [facility] treatment team Request Healthcare Surrogate/Guardian Advocate?: No
[2018-05-20 09:35] LABS: Creatine Kinase 796 U/L (26-192)
[2018-05-20 09:52] LABS: Creatine Kinase MB 8.3 ng/mL (0.5-3.6)
--- NOTE | 2018-05-20 14:04 | P.DIET ---
Nutritional Evaluation Type of nutrition evaluation: initial Nutrition screening: MDC (Malnutrition) Subjective Subjective Comments: Eating only about 25%. 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 It is reported that the pt is unable to care for herself at home. Objective - Diagnosis Malnutrition, Rhabdomyolisis, Etoh Intoxication - Objective % IBW: 95 (IBW = 110#) Body Weight Used for Calculations: Actual (52 kg) Energy Needs - Lower Range (kCal/kg): 30 Energy Needs - Upper Range (kCal/kg): 35 Lower Limit kCal/kg (kCals): 1,560 Upper Limit kCal/kg (kCals): 1,820 Lower Limit Protein Factor (Grams per Kg): 1.2 Upper Limit Protein Factor (Grams per Kg): 1.5 Lower Protein Needs (Protein): 62 Upper Protein Needs (Protein): 78 Fluid Factor (ml/kg): 35 Estimated Fluid Needs (ml): 1,820 Dietitian Reviewed in Medical Record: Current diet, Curent medications, Intake & Output, Labs, Medical history, Wound/DTI Diet Order: Regular with Ensure Original bid Wound Care Note: Nurses Wound/ Pressure Injury Assessment indicates a midline coccyx pressure injury Objective Comments: Hx includes anal CA, colostomy, asthma, COPD, emphysema, hysterectomy, Etoh Assessment Assessment: Pt is at high nutrition risk 2' to dx, pressure injury and poor po intake. Pt presents with a BMI of 21.0. Ensure Original has been ordered and RD will change that to Ensure Enlive for additional nutrition (350 kcals/ 20 gms pro/ 8 oz serving). LBM 7/20. Recommendations: 1. Continue regular diet. 2. Ensure Enlive tid. RD wll monitor acceptance 3. Please order a daily MVI/min to aid in healing Dietitian to Monitor: Lab values, Supplement acceptance, Intake & Output, Diet tolerance, Weight change, PO Intake, Wound/skin status, Medical course
--- NOTE | 2018-05-20 20:21 | P.PN ---
Subjective Interval history: Follow up for poor living condition, mild rhabdomyolysis, possible UTI. Patient is currently doing well, resting in bed. Denies any dysuria, abdominal pain, fever, chills. She requests colostomy bag to be changed. Physical Exam Vital signs: Vital Signs 05/19/18 20:20 05/20/18 00:45 05/20/18 04:20 Temperature 98.1 F 97.9 F 98 F Pulse Rate 93 H 89 88 Respiratory Rate 19 20 18 Blood Pressure 114/59 L 118/60 120/80 Pulse Oximetry 94 L 95 93 L 05/20/18 08:00 05/20/18 08:34 05/20/18 12:00 Temperature 97.3 F L 98 F Pulse Rate 79 81 93 H Respiratory Rate 18 14 20 Blood Pressure 190/87 H 173/78 H Pulse Oximetry 96 93 L 05/20/18 16:00 05/20/18 19:52 Temperature 98.1 F Pulse Rate 88 94 H Respiratory Rate 17 18 Blood Pressure 188/84 H Pulse Oximetry 96 Intake & Output 05/20/18 05/20/18 05/21/18 06:59 18:59 06:59 Intake Total 3050 / 3050 100 / 100 Output Total 675 / 675 Balance 2375 / 2375 100 / 100 Weight 52 kg Intake: IV 2000 / 1999 100 / 100 NS + KCl 20 mEq Inj 1,000 ML @ 1000 / 1000 100 mls/hr IV.CONT .Q10H [facility] Rx #:[id number] NS Inj 1,000 ML @ Wide Open IV. 1000 / 1000 SIG [facility] Rx#:[id number] Rocephin Inj 1,000 MG In NS Inj 100 / 100 100 ML @ 200 mls/hr IV.SIG Q24H [facility] Rx#:[id number] Oral 1050 / 1050 Output: Stool 0 / 0 Emesis 50 / 50 Stool Amount (Stoma) 625 / 625 Pre-Hospital: Left Upper 625 / 625 Abdomen Other: # Voids 6 1 Date of Last Bowel Movement 05/19/18 05/20/18 # Bowel Movements 0 # Emeses 200 Narrative: GENERAL: Alert, NAD. SKIN: Warm and dry. HEAD: Normocephalic. EYES: No scleral icterus. No injection or drainage. NECK: Supple, trachea midline. No JVD or lymphadenopathy. CARDIOVASCULAR: Regular rate and rhythm without murmurs, gallops, or rubs. RESPIRATORY: Breath sounds equal bilaterally. No accessory muscle use. GASTROINTESTINAL: Abdomen soft, non-tender, nondistended. Colostomy bag in place. MUSCULOSKELETAL: No cyanosis, or edema. BACK: Nontender without obvious deformity. No CVA tenderness. - Urinary Catheter Management Straight Cath placed during this visit: yes, but has since been removed by the nurse Reason for continuing: Not indwelling catheter Insertion date: 05/19/18 Insertion time: 12:30 Removal date: 05/19/18 Removal time: 12:33 Results - Labs CBC & Chem 7: 05/20/18 08:03 05/20/18 08:03 Laboratory Results - last 24 hr 05/19/18 05/19/18 05/20/18 12:35 12:35 08:03 WBC 7.8 RBC 3.89 L Hgb 11.6 Hct 35.4 MCV 91.0 MCH 29.8 MCHC 32.7 RDW 21.5 H Plt Count 140 L MPV 6.8 L Neut % (Auto) 84.7 H Lymph % (Auto) 10.8 [place] % (Auto) 4.1 Eos % (Auto) 0.2 Baso % (Auto) 0.2 Neut # (Auto) 6.6 Lymph # (Auto) 0.8 L [place] # (Auto) 0.3 Eos # (Auto) 0.0 Baso # (Auto) 0.0 WBC Differential . Differential Comment Auto diff final Sodium Potassium Chloride Carbon Dioxide Anion Gap BUN Creatinine Estimated GFR Random Glucose Calcium Magnesium Total Creatine Kinase CK-MB (CK-2) CK-MB (CK-2) % Urine Color Becca Urine Clarity Cloudy H Urine pH 6.0 Ur Specific [place] 1.016 Urine Protein 30 H Urine Glucose (UA) Negative Urine Ketones Trace H Urine Occult Blood Moderate H Urine Nitrate Positive H Urine Bilirubin Negative Urine Urobilinogen 2.0 H Ur Leukocyte Esterase Moderate H Urine RBC 1 Urine WBC 106 H Urine WBC Clumps Few H Ur Squamous Epith Cells <1 Urine Bacteria Many H Urine Mucus Few H Micro UA Comment Cath-culture ind Urine Culture Comments Cath-cult indicated Urine Opiates Screen Neg Ur Barbiturates Screen Pos H Ur Amphetamines Screen Neg U Benzodiazepines Scrn Neg Urine Cocaine Screen Neg U Cannabinoids Screen Neg 05/20/18 08:03 WBC RBC Hgb Hct MCV MCH MCHC RDW Plt Count MPV Neut % (Auto) Lymph % (Auto) [place] % (Auto) Eos % (Auto) Baso % (Auto) Neut # (Auto) Lymph # (Auto) [place] # (Auto) Eos # (Auto) Baso # (Auto) WBC Differential Differential Comment Sodium 141 Potassium 3.2 L Chloride 101 Carbon Dioxide 27.3 Anion Gap 13 BUN 5 L Creatinine 0.43 L Estimated GFR Greater than 89 Random Glucose 77 Calcium 7.5 L Magnesium 1.4 L Total Creatine Kinase 796 H CK-MB (CK-2) 8.3 H CK-MB (CK-2) % 1.0 Urine Color Urine Clarity Urine pH Ur Specific [place] Urine Protein Urine Glucose (UA) Urine Ketones Urine Occult Blood Urine Nitrate Urine Bilirubin Urine Urobilinogen Ur Leukocyte Esterase Urine RBC Urine WBC Urine WBC Clumps Ur Squamous Epith Cells Urine Bacteria Urine Mucus Micro UA Comment Urine Culture Comments Urine Opiates Screen Ur Barbiturates Screen Ur Amphetamines Screen U Benzodiazepines Scrn Urine Cocaine Screen U Cannabinoids Screen Microbiology 05/19/18 12:35 Catheterized Urine Urine Culture - Preliminary gram negative rods Assessment and Plan - Plan 63-year-old white female who has a history of COPD and chronically wheelchair- bound brought to the emergency room under a Ramos act after found on the floor with feces throughout of her house and body 1. Acute rhabdomyolysis likely due to fall, dehydration - Improved with IV fluid. CK trending down 1400 --> 800 - No evidence of kidney injury - Will d/c IV fluid. 2. Severe malnutritiondietary consult along with ensure supplements with meals 3 times daily. Unsure her social situation to be able to get adequate food and nutrition and recommend going to a [facility] facility which patient declines at this time. 3. History of COPDnot in acute exacerbationcontinue with inhalers. 4. History of colostomy from history of rectal cancercontinue ostomy care 5. Status post Ramos act with evaluation on patient's ability to care for self. Psychiatry evaluated patient, determined that patient has capacity. Ramos act lifted. 6. Hypokalemia Improved. K+ 2.8 --> 3.2. Will replace with PO KCL. 7. Alcohol intoxicationpatient was counseled. She was extremely vague during the history and states that he she does not drink on a chronic basis. Continue CIWA protocol. 8. Abnormal urinalysis suspect urinary tract infectioninitiate ceftriaxone. Urine cx growing GNR. 9. DVT prophylaxisheparin
[2018-05-20] MEDS ORDERED: Morphine Inj 4 MG/ML Vial IV.PUSH PRN (21:57)
[2018-05-21 00:39] VITALS: O2SAT 96
[2018-05-21] MEDS: Heparin - SQ 10,000 UNITS/ML Vial SQ SCH ×2 (03:19→15:44)
[2018-05-21] MEDS: Sod Chloride 0.9% Inj 1,000 ML IV.CONT SCH (10:58)
[2018-05-21 12:22] VITALS: BP 122/70; PULSE 93; RESP 16; TEMP 98.3
--- NOTE | 2018-05-21 13:46 | P.DCO ---
- Diagnosis (1) Malnutrition - Physical Therapy Order: Evaluate and treat, Improve ambulation, Strength and gait training - Home Health Nursing Order: Medical education, Signs/symptoms of disease process, Medication education-adverse effect, Wound care and dressing changes, Nursing assessment with vital signs - Certification I have seen patient Abi Mccarty on 05/21/18. My clinical findings support the need for the requested home health care services because: Limited mobility due to disease progression, Patient has SOB, Deconditioned with increased weakness, High risk of falls, Infection with risk of complications I certify that my clinical findings support that this patient is homebound because: Post-op weakness, Impaired cognitive ability/safety (1) Malnutrition Qualifiers: Malnutrition type: unspecified type Qualified Code(s): E46 - Unspecified protein-calorie malnutrition
--- NOTE | 2018-05-21 14:35 | P.DS ---
Date of admission: 05/19/18 15:52 Primary care physician: No Primary Care Physician Brief History from admission: 63-year-old white female with a history of colostomy from previous history of rectal cancer, COPD presents to the emergency room after being found in a house full of feces on the floor which led to law enforcement Ramos acting her to bring into the emergency room for further evaluation. Per the emergency room physician, she was found by a neighbor in her house full of feces and she does not usually keep her colostomy bag on due to finding it irritating to the abdominal area. She states that she has been more weak during the past few days and falling from her wheelchair in which she states that she is currently wheelchair-bound at her baseline. She lives by herself and has a friend that usually brings her food and groceries. She states that she does not drink on a daily basis but finally admitted to drinking some alcohol" yesterday after I commented they were elevated levels of alcohol in her lab work. 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 DS: Diagnosis - Discharge Diagnosis (1) Malnutrition Status: Acute (2) Adjustment disorder Status: Acute (3) UTI (urinary tract infection) Status: Acute DS: Medications - Discharge Medications Prescriptions: ciprofloxacin HCl [Cipro] 250 mg PO Q12H #6 tab nifedipine 30 mg PO DAILY #30 tab DS: Summary Hospital Course: 63-year-old white female who has a history of COPD and chronically wheelchair- bound brought to the emergency room under a Ramos act after found on the floor with feces throughout of her house and body Psychiatry evaluated patient and determined that she has capacity and lifted ramos act. 1. Acute rhabdomyolysis likely due to fall, dehydration - Improved with IV fluid. CK trending down 1400 --> 800 - No evidence of kidney injury. Encouraged patient to keep herself well hydrated. 2. Severe malnutritiondietary consult along with ensure supplements with meals 3 times daily. Unsure her social situation to be able to get adequate food and nutrition and recommend going to a retirement facility which patient declines at this time. 3. History of COPDnot in acute exacerbationcontinue with inhalers. 4. History of colostomy from history of rectal cancercontinue ostomy care 5. Status post Ramos act with evaluation on patient's ability to care for self. Psychiatry evaluated patient, determined that patient has capacity. Ramos act lifted. 6. Hypokalemia Improved. K+ 2.8 --> 3.2. Received PO KCL. Follow up with PCP. 7. Alcohol intoxicationpatient was counseled. She was extremely vague during the history and states that he she does not drink on a chronic basis. Continue CIWA protocol. 8. Abnormal urinalysis suspect urinary tract infectioninitiate ceftriaxone. Urine cx growing GNR - Citrobacter, sensitive to Cipro. Will continue Cipro for 3 days upon discharge. - Time Spent with Patient Total time spent providing and/or coordinating discharge services: Less than 30 minutes - Quality: VTE Deep Vein Thrombosis/Pulmonary Embolism Present on Admission: No Exam Vital signs: Vital Signs 05/20/18 16:00 05/20/18 19:52 05/20/18 20:00 Temperature 98.1 F 97.7 F Pulse Rate 88 94 H 97 H Respiratory Rate 17 18 17 Blood Pressure 188/84 H 129/65 Pulse Oximetry 96 95 05/20/18 23:45 05/21/18 00:00 05/21/18 04:00 Temperature 98.1 F 98.0 F Pulse Rate 87 103 H Respiratory Rate 20 20 20 Blood Pressure 137/59 L 128/65 Pulse Oximetry 96 96 05/21/18 04:34 05/21/18 07:58 05/21/18 11:09 Temperature 98.1 F Pulse Rate 99 H 101 H 100 H Respiratory Rate 18 18 18 Blood Pressure 114/74 Pulse Oximetry 96 05/21/18 12:00 Temperature 98.3 F Pulse Rate 93 H Respiratory Rate 16 Blood Pressure 122/70 Pulse Oximetry 96 Intake & Output 05/20/18 05/21/18 05/21/18 18:59 06:59 18:59 Intake Total 100 / 100 1800 / 1800 350 / 350 Balance 100 / 100 1800 / 1800 350 / 350 Weight 52 kg Intake: IV 100 / 100 1000 / 1000 350 / 350 NS + KCl 20 mEq Inj 1,000 ML @ 1000 / 1000 350 / 350 100 mls/hr IV.CONT .Q10H [facility] Rx #:[id number] Rocephin Inj 1,000 MG In NS Inj 100 / 100 100 ML @ 200 mls/hr IV.SIG Q24H [facility] Rx#:[id number] Oral 800 / 800 Other: # Voids 1 9 1 Date of Last Bowel Movement 05/20/18 05/20/18 05/21/18 Narrative: GENERAL: Alert, NAD. SKIN: Warm and dry. HEAD: Normocephalic. EYES: No scleral icterus. No injection or drainage. NECK: Supple, trachea midline. No JVD or lymphadenopathy. CARDIOVASCULAR: Regular rate and rhythm without murmurs, gallops, or rubs. RESPIRATORY: Breath sounds equal bilaterally. No accessory muscle use. GASTROINTESTINAL: Abdomen soft, non-tender, nondistended. Colostomy bag in place. MUSCULOSKELETAL: No cyanosis, or edema. BACK: Nontender without obvious deformity. No CVA tenderness. Results Procedures completed during hospitalization: None. Discharge Plan - Discharge Disposition Patient Disposition: /Home Health Service - Discharge Condition Condition: Good - Discharge Order Discharge Orders: Discharge Order (Routine); Ordered 05/21/18 Ordered By: Aba Schmitz - Discharge Details Anticipated Discharge Date: 05/21/18 - Physicians Team Primary Care Provider: Primary Care Naveen,Cecilia Attending Provider: Aba Schmitz Other Providers: Julio Cesar Bazan MD
== END 2018-05-21 16:45 | disposition home health service (06) ==
LOC: NEPD 11:18 → NEDA 15:52 → N05 17:03
PROVIDERS: ADMIT Hospitalist; ATTEND Hospitalist
DX: F12.90 Cannabis use, unspecified, uncomplicated; Z80.3 Family history of malignant neoplasm of breast; F10.229 Alcohol dependence with intoxication, unspecified; F43.20 Adjustment disorder, unspecified; Y92.009 Unspecified place in unspecified non-institutional (private) residence as the place of occurrence of the external cause; Z92.3 Personal history of irradiation; F17.210 Nicotine dependence, cigarettes, uncomplicated; Z91.81 History of falling; Y84.2 Radiological procedure and radiotherapy as the cause of abnormal reaction of the patient, or of later complication, without mention of misadventure at the time of the procedure; M62.82 Rhabdomyolysis; Y90.8 Blood alcohol level of 240 mg/100 ml or more; Z81.1 Family history of alcohol abuse and dependence; E87.6 Hypokalemia; E86.0 Dehydration; Z99.3 Dependence on wheelchair; Z85.048 Personal history of other malignant neoplasm of rectum, rectosigmoid junction, and anus; Z68.21 Body mass index [BMI] 21.0-21.9, adult; W05.0XXA Fall from non-moving wheelchair, initial encounter; N39.0 Urinary tract infection, site not specified; L59.8 Other specified disorders of the skin and subcutaneous tissue related to radiation; Z93.3 Colostomy status; J43.9 Emphysema, unspecified; E43 Unspecified severe protein-calorie malnutrition